=== PATIENT | female | born 1935 | race Caucasian/White ===

== ENCOUNTER 2016-12-16 13:54 | Observation (INO) | payer MEDICARE ==
[~2016-12-16] VITALS: Ht 172.7 cm; Wt 108.8 kg
[~2016-12-16 13:54] MED LIST: AMIT25TA20 PO; ASPI81TA82 PO; B COTAB3 PO; BENEPOW5 OR; CALTTAB5 PO; CITA20TA4 PO; COZA50TA PO; CRAN250C2 OR; GLUCCAP13 PO; LEVO50IN PO; MODU550 PO; OMEP20TA OR; PROP60CA PO; SIMV20TA OR; STOO100T PO; TAB-TAB PO; VIT250TA PO; VITA20003 OR
[2016-12-16 13:56] VITALS: BP 147/72; PULSE 80; RESP 24; TEMP 97.8; O2SAT 94
--- NOTE | 2016-12-16 15:28 | PD ---
HPI Chief Complaint: Psychiatric Symptoms Time Seen by Provider: 14:39 Travel History International Travel<30 days: No Contact w/Intl Traveler<30days: No Traveled to known affect area: No History of Present Illness HPI 81yo F with PMH of HTN, HLD, depression presents to the ED with c/o auditory hallucination that has been getting worst. States the voices are telling her to do things. Pt also states she has been having chest pressure that is intermittent for 1 week. Pain is midsternal. Denies any sob, n/v, abdominal pain, focal weakness or numbness. Pt states she used to see social science professor Dr. Lomax but has not in years and he is now retired. Has not had chest pain work up in a while. Denies any suicidal or homicidal ideations. PFSH Past Medical History Hx Anticoagulant Therapy: Yes (asa) Cancer: No Cardiovascular Problems: Yes Diabetes: No Diminished Hearing: Yes (HEARING AID) Hepatitis: No Hiatal Hernia: No Hypertension: Yes Medical other: Yes (GERD, TREMORS) Thyroid Disease: Yes Tetanus Vaccination: > 5 Years Influenza Vaccination: Yes Past Surgical History Abdominal Surgery: Yes (APPY, LAP. TONEY, EXPL. LAP) Appendectomy: Yes Cholecystectomy: Yes Eye Surgery: Yes (KRISTINA. CATARACT EXTRACT EXTR., KRISTINA. LASER (GLAUCOMA)) Gynecologic Surgery: Yes (VAG. HYSTERECTOMY, TRANSOBTURATOR TAPE, AP REPAIR, BLADDER TUCK) Hysterectomy: Yes Other Surgery: Yes Social History Alcohol Use: Yes (WINE) Tobacco Use: No Substance Use: No Allergies-Medications (Allergen,Severity, Reaction): Coded Allergies: Cephalexin (Unverified Allergy, Severe, RASH, 12/16/16) Keflex (Verified Allergy, Severe, ALSO CEFOTETAN., 12/16/16) Ketamine (Verified Allergy, Severe, 12/16/16) PATIENT HAS NOT HAD--MOTHER HAD HALLUCINATIONS WITH THIS MED Penicillin (Verified Allergy, Severe, 12/16/16) Sulfa (Verified Allergy, Severe, 12/16/16) Uncoded Allergies: cefotetan (Allergy, Unknown, 12/16/16) Reported Meds & Prescriptions Reported Meds & Active Scripts Active Reported Cranberry (Cranberry (Vaccinium Macrocarpon)) 250 Mg Cap Miralax Powder (Polyethylene Glycol 3350 Powder) 17 Gm Powd 17 Gm PO DAILY Mix and dissolve one measuring cap-ful (17 grams) in water or juice. Caltrate 600 (Calcium Carbonate) 1,500 Mg Tab 1 Tab PO DAILY Aspirin 81 (Aspirin) 81 Mg Tabdr 81 Mg PO HS Fish Oil ([place]-3 Fatty Acids) 500 Mg Cap Glucosamine & Cho... 5653-8555-106 mg-mg-Unit (Dnklszflsyn-Akiabbvaaqk-Ugdbtg) 1 Pow Pow 2,700 Mg PO DAILY Vitamin D-3 (Cholecalciferol) 1,000 Unit Tab 1,000 Units PO DAILY Vitamin C (Ascorbic Acid) 500 Mg Cap 500 Mg PO Centrum Silver (Multiple Vitamins W/ Minerals) 1 Tab 1 Tab PO DAILY Amiloride-Hydrochlorothiazide (Amiloride/HCTZ) 5-50 Mg Tab 1 Tab PO DAILY Give with food. Zocor (Simvastatin) 20 Mg Tab 20 Mg PO HS Propranolol (Propranolol HCl) 60 Mg Tab 60 Mg PO DAILY Estradiol 1 Mg Tab 1 Mg PO DAILY Amitriptyline (Amitriptyline HCl) 25 Mg Tab 25 Mg PO HS Levothyroxine (Levothyroxine Sodium) 150 Mcg Tab 150 Mcg PO DAILY Citalopram (Citalopram Hydrobromide) 20 Mg Tab 20 Mg PO DAILY Omeprazole 20 Mg Tab 20 Mg PO DAILY Review of Systems Except as stated in HPI: all other systems reviewed are Neg Physical Exam Narrative GENERAL: 81yo F not in distress. SKIN: Focused skin assessment warm/dry. HEAD: Atraumatic. Normocephalic. EYES: Pupils equal and round. No scleral icterus. No injection or drainage. ENT: No nasal bleeding or discharge. Mucous membranes pink and moist. NECK: Trachea midline. No JVD. CARDIOVASCULAR: Regular rate and rhythm. No murmur appreciated. RESPIRATORY: No accessory muscle use. Clear to auscultation. Breath sounds equal bilaterally. GASTROINTESTINAL: Abdomen soft, non-tender, nondistended. MUSCULOSKELETAL: No obvious deformities. No clubbing. No cyanosis. No edema. NEUROLOGICAL: Awake and alert. No obvious cranial nerve deficits. Motor grossly within normal limits. Normal speech. PSYCHIATRIC: Appropriate mood and affect; insight and judgment normal. Data Data Last Documented VS Vital Signs Date Time Temp Pulse Resp B/P Pulse Ox O2 Delivery O2 Flow Rate FiO2 12/16/16 14:48 76 18 12/16/16 13:56 97.8 147/72 94 Room Air Orders Complete Blood Count With Diff (12/16/16 14:50) Comprehensive Metabolic Panel (12/16/16 14:50) Thyroid Stimulating Hormone (12/16/16 14:50) Psych Screen (12/16/16 14:50) Drug Screen, Random Urine (12/16/16 14:50) Electrocardiogram (12/16/16 ) Ckmb (Isoenzyme) Profile (12/16/16 14:50) Troponin I (12/16/16 14:50) Chest, Single Ap (12/16/16 ) Admit Order (Ed Use Only) (12/16/16 18:16) Free Thyroxine (T4) (12/16/16 15:15) Labs Laboratory Tests Test 12/16/16 12/16/16 15:15 16:50 White Blood Count 9.9 TH/MM3 Red Blood Count 4.03 MIL/MM3 Hemoglobin 13.0 GM/DL Hematocrit 37.8 % Mean Corpuscular Volume 93.9 FL Mean Corpuscular Hemoglobin 32.4 PG Mean Corpuscular Hemoglobin 34.5 % Concent Red Cell Distribution Width 14.0 % Platelet Count 265 TH/MM3 Mean Platelet Volume 7.4 FL Neutrophils (%) (Auto) 67.9 % Lymphocytes (%) (Auto) 20.1 % Monocytes (%) (Auto) 8.9 % Eosinophils (%) (Auto) 2.3 % Basophils (%) (Auto) 0.8 % Neutrophils # (Auto) 6.7 TH/MM3 Lymphocytes # (Auto) 2.0 TH/MM3 Monocytes # (Auto) 0.9 TH/MM3 Eosinophils # (Auto) 0.2 TH/MM3 Basophils # (Auto) 0.1 TH/MM3 CBC Comment DIFF FINAL Differential Comment Sodium Level 137 MEQ/L Potassium Level 3.5 MEQ/L Chloride Level 98 MEQ/L Carbon Dioxide Level 28.8 MEQ/L Anion Gap 10 MEQ/L Blood Urea Nitrogen 14 MG/DL Creatinine 1.02 MG/DL Estimat Glomerular Filtration 52 ML/MIN Rate Random Glucose 91 MG/DL Calcium Level 9.3 MG/DL Total Bilirubin 0.4 MG/DL Aspartate Amino Transf 13 U/L (AST/SGOT) Alanine Aminotransferase 19 U/L (ALT/SGPT) Alkaline Phosphatase 86 U/L Total Creatine Kinase 69 U/L Troponin I LESS THAN 0.02 NG/ML Total Protein 6.4 GM/DL Albumin 3.3 GM/DL Free Thyroxine 1.20 NG/DL Thyroid Stimulating Hormone 5.230 uIU/ML 3rd Gen Urine Opiates Screen NEG Urine Barbiturates Screen NEG Urine Amphetamines Screen NEG Urine Benzodiazepines Screen NEG Urine Cocaine Screen NEG Urine Cannabinoids Screen NEG MDM Medical Decision Making Medical Screen Exam Complete: Yes Emergency Medical Condition: Yes Interpretation(s) EKG: NSR 69bpm. LAD. Incomplete RBBB. Differential Diagnosis Psychosis vs. schizophrenia vs. dementia ACS vs. NSTEMI vs. atypical chest pain vs. anxiety Narrative Course 81yo F with main complaint of auditory hallucinations. However, she does have chest pressure that is intermittent for 1 week. Last episode was last night. Although her main complaint is auditory hallucinations, she does have risk factors for chest pain. Will check enzymes and r/o chest pain as well as have psych evaluate her. Troponin negative. TSH mildly elevated, will add T4. Labs reviewed, no leukocytosis. CXR negative. Pt was found outside the ED as the voices told her to so pt was bustillo acted. Pt was brought back by her nurse and has a sitter in her room. Discussed with hospitalist to admit to their service for observation to r/o ACS for chest pain while waiting for psych evaluation. Diagnosis Primary Impression: Chest pain Qualified Code: R07.9 - Chest pain, unspecified type Additional Impression: Auditory hallucination Admitting Information Admitting Physician Requests: Flower Valerio DO December 16, 2016 15:28
[2016-12-16] MEDS ORDERED: LEVO150T7 PO (15:51)
[2016-12-16] MEDS ORDERED: PROP60TA PO (15:51)
[2016-12-16] MEDS ORDERED: ZOCO20TA PO (15:51)
[2016-12-16] MEDS ORDERED: OMEP20TA PO (15:51)
[2016-12-16] MEDS ORDERED: FISH500C (15:51)
[2016-12-16] MEDS ORDERED: AMIT25TA9 PO (15:51)
[2016-12-16] MEDS ORDERED: ASCO500C PO (15:51)
[2016-12-16] MEDS ORDERED: CITA20TA4 PO (15:51)
[2016-12-16] MEDS ORDERED: ESTR1TAB PO (15:51)
[2016-12-16] MEDS ORDERED: CENTTAB PO (15:51)
[2016-12-16] MEDS ORDERED: ASPI-110 PO (15:51)
[2016-12-16] MEDS ORDERED: GLUCPOW27 PO (15:51)
[2016-12-16] MEDS ORDERED: MODU550 PO (15:51)
[2016-12-16] MEDS ORDERED: VITA10003 PO (15:51)
[2016-12-16] MEDS ORDERED: MIRA33504 PO (15:52)
[2016-12-16] MEDS ORDERED: CRAN250C (15:52)
[2016-12-16] MEDS ORDERED: CALTTAB5 PO (15:52)
--- NOTE | 2016-12-16 15:59 | RADRPT ---
EXAM DATE/TIME: 12/16/2016 15:22 [facility] COMPARISON: No previous studies available for comparison. INDICATIONS : Chest pain. MEDICAL HISTORY : Hypertension. SURGICAL HISTORY : None. ENCOUNTER: Initial ACUITY: 1 day PAIN SCORE: Non-responsive. LOCATION: Bilateral chest FINDINGS: A single view of the chest demonstrates the lungs to be symmetrically aerated without evidence of mas s, infiltrate or effusion. The cardiomediastinal contours are unremarkable. Osseous structures are intact. CONCLUSION: No acute disease. Son Rivera MD on December 16, 2016 at 15:57 Board Certified Radiologist. This report was verified electronically.
[2016-12-16 16:14] LABS: AUTOMATED NEUTROPHIL # 6.7 TH/MM3 (1.8-7.7); BASOPHIL # 0.1 TH/MM3 (0-0.2); BASOPHIL % 0.8 % (0.0-2.0); EOSINOPHIL # 0.2 TH/MM3 (0-0.4); EOSINOPHIL % 2.3 % (0.0-4.0); HEMATOCRIT 37.8 % (35.0-46.0); HEMO FLAGS DIFF FINAL; LYMPH % 20.1 % (9.0-44.0); MEAN CELL VOLUME 93.9 FL (80.0-100.0); MEAN CORPUSCULAR HEMOGLOBIN 32.4 PG (27.0-34.0); MEAN CORPUSCULAR HGB CONC 34.5 % (32.0-36.0); MONO % 8.9 % (0.0-8.0); NEUT % 67.9 % (16.0-70.0); PLATELET COUNT 265 TH/MM3 (150-450); RED BLOOD COUNT 4.03 MIL/MM3 (4.00-5.30); WHITE BLOOD COUNT 9.9 TH/MM3 (4.0-11.0)
[2016-12-16 16:39] LABS: ANION GAP 10 MEQ/L (5-15); AST (GOT) 13 U/L (15-37); BICARBONATE 28.8 MEQ/L (21.0-32.0); BLOOD UREA NITROGEN 14 MG/DL (7-18); CHLORIDE 98 MEQ/L (98-107); GLOMERULAR FILTRATION RATE 52 ML/MIN (>89); POTASSIUM 3.5 MEQ/L (3.5-5.1); SODIUM (NA) 137 MEQ/L (136-145)
[2016-12-16 16:50] LABS: ALKALINE PHOSPHATASE 86 U/L (45-117); ALT (GPT) 19 U/L (10-53); TOTAL BILIRUBIN ADULT 0.4 MG/DL (0.2-1.0)
[2016-12-16 17:27] LABS: AMPHETAMINE, URINE NEG (NEG); BARBITURATES, URINE NEG (NEG); COCAINE, URINE NEG (NEG)
[2016-12-16 17:35] LABS: CREATINE KINASE 69 U/L (26-192)
[2016-12-16 18:38] VITALS: BP 144/75; PULSE 75; RESP 18; O2SAT 98
[2016-12-16] MEDS ORDERED: SODIUM CHLORIDE 0.9% FLUSH 10 ML FLUSH IV FLUSH PRN (19:00)
[2016-12-16] MEDS ORDERED: ACETAMINOPHEN 325 MG TAB PO PRN (19:00)
[2016-12-16] MEDS ORDERED: ONDANSETRON HCL 4 MG/2 ML VIAL IVP PRN (19:00)
[2016-12-16] MEDS ORDERED: NALOXONE HCL 0.4 MG/ML AMP IV PRN (19:00)
--- NOTE | 2016-12-16 19:06 | HHI.HP ---
HPI Service [facility] Primary Care Physician Serina Nance Admission Diagnosis Chest pain, psychosis Diagnoses: Chief Complaint: auditory hallucinations, brought in as noel act chest tightness Travel History International Travel<30 Days: No Contact w/Intl Traveler <30 Da: No Traveled to Known Affected Are: No History of Present Illness This is a pleasant 81-year-old elderly female with past medical history hypertension, hyperlipidemia, depression, TIA, tremors. Patient presented to the emergency room complaining of auditory hallucinations that have been getting worse. Patient was sent from [facility] under [employer] act. While being evaluated in emergency room, patient endorsed having chest heaviness. Patient is now evaluated in the emergency room, she indicates that prior to living at [facility] she was living with one of her daughters. She has been having problems with auditory hallucinations for the last 7 months and has been under a lot of stress. She denies any suicidal ideation at this time. States that she's been having some chest heaviness, she had an episode yesterday after dinner and also after she got up to walk. Chest heaviness was relieved with rest. There is no radiation. She feels slightly short of breath, no nausea, no vomiting, diaphoresis. Occasional leg swelling. Denies any prior history of coronary artery disease. She has seen cardiology in the past, believes that she saw Dr. Crowder as outpatient last fall and had a stress test that was negative. Patient believes this chest heaviness is more pronounced as she's been under a lot of stress and is very anxious. She denies any auditory hallucinations at this time however she is very anxious as she expects them to happen anytime. Laboratory workup completed in the emergency room was essentially unremarkable. Troponin was negative. EKG did not reveal any ST segment elevation. The emergency room physician requested admission to hospitalist services for observation overnight so that she can be medically clear for psychiatric inpatient care. Review of Systems ROS Limitations: Clinical Condition Cardiovascular: COMPLAINS OF: Chest pain, Dyspnea on Exertion, Lower Extremity Edema Psychiatric: COMPLAINS OF: Anxiety, Hallucinations Past Family Social History Past Medical History Hypertension Hyperlipidemia TIA GERD Tremors Anxiety Cataracts Glaucoma Hypothyroid Past Surgical History Appendectomy Vaginal hysterectomy Laparoscopic cholecystectomy Trans-obturator tape placement and rectocele repair and cystoscopy 2005 Trans-obturator tape bladder suspension 2010 Laser eye surgery for glaucoma Laparoscopic surgery for lysis of adhesions Ventral hernia repair EGD Cataract surgery Reported Medications Reported Meds & Active Scripts Active Reported Cranberry (Cranberry (Vaccinium Macrocarpon)) 250 Mg Cap Miralax Powder (Polyethylene Glycol 3350 Powder) 17 Gm Powd 17 Gm PO DAILY Mix and dissolve one measuring cap-ful (17 grams) in water or juice. Caltrate 600 (Calcium Carbonate) 1,500 Mg Tab 1 Tab PO DAILY Aspirin 81 (Aspirin) 81 Mg Tabdr 81 Mg PO HS Fish Oil ([place]-3 Fatty Acids) 500 Mg Cap Glucosamine & Cho... 2560-4639-654 mg-mg-Unit (Ogbchtocjjz-Qhvcnsyhvsa-Sziarq) 1 Pow Pow 2,700 Mg PO DAILY Vitamin D-3 (Cholecalciferol) 1,000 Unit Tab 1,000 Units PO DAILY Vitamin C (Ascorbic Acid) 500 Mg Cap 500 Mg PO Centrum Silver (Multiple Vitamins W/ Minerals) 1 Tab 1 Tab PO DAILY Amiloride-Hydrochlorothiazide (Amiloride/HCTZ) 5-50 Mg Tab 1 Tab PO DAILY Give with food. Zocor (Simvastatin) 20 Mg Tab 20 Mg PO HS Propranolol (Propranolol HCl) 60 Mg Tab 60 Mg PO DAILY Estradiol 1 Mg Tab 1 Mg PO DAILY Amitriptyline (Amitriptyline HCl) 25 Mg Tab 25 Mg PO HS Levothyroxine (Levothyroxine Sodium) 150 Mcg Tab 150 Mcg PO DAILY Citalopram (Citalopram Hydrobromide) 20 Mg Tab 20 Mg PO DAILY Omeprazole 20 Mg Tab 20 Mg PO DAILY Allergies: Coded Allergies: Cephalexin (Unverified Allergy, Severe, RASH, 12/16/16) Keflex (Verified Allergy, Severe, ALSO CEFOTETAN., 12/16/16) Ketamine (Verified Allergy, Severe, 12/16/16) PATIENT HAS NOT HAD--MOTHER HAD HALLUCINATIONS WITH THIS MED Penicillin (Verified Allergy, Severe, 12/16/16) Sulfa (Verified Allergy, Severe, 12/16/16) Uncoded Allergies: cefotetan (Allergy, Unknown, 12/16/16) Active Ordered Medications Inpatient Medications Acetaminophen (Tylenol) 650 mg Q4H PRN PO TEMP > 100.4; Start 12/16/16 at 19:00 ; Status UNV Naloxone HCl (Narcan Inj) 0.4 mg UNSCH PRN IV SEE LABEL COMMENTS; Start at 19:00; Status UNV Ondansetron HCl (Zofran Inj) 4 mg Q6H PRN IVP NAUSEA OR VOMITING; Start at 19:00; Status UNV Sodium Chloride (NS Flush) 2 ml BID IV FLUSH ; Start 12/16/16 at 21:00; Status UNV Family History Had a sister who had coronary artery disease and stent [facility] . She has grown children. She quit smoking in 1983, drinks 1 glass of wine per day. No substance abuse. Physical Exam Vital Signs Vital Signs Date Time Temp Pulse Resp B/P Pulse Ox O2 Delivery O2 Flow Rate FiO2 12/16/16 18:38 75 18 144/75 98 Room Air 12/16/16 14:48 76 18 12/16/16 13:56 97.8 80 24 147/72 94 Room Air Physical Exam GENERAL: This is a well-nourished, well-developed patient, in no apparent distress. SKIN: No rashes, ecchymoses or lesions. Cool and dry. HEAD: Atraumatic. Normocephalic. No temporal or scalp tenderness. EYES: Pupils equal round and reactive. Extraocular motions intact. No scleral icterus. No injection or drainage. ENT: Nose without bleeding, purulent drainage or septal hematoma. Throat without erythema, tonsillar hypertrophy or exudate. Uvula midline. Airway patent. NECK: Trachea midline. No JVD or lymphadenopathy. Supple, nontender, no meningeal signs. CARDIOVASCULAR: Regular rate and rhythm without murmurs, gallops, or rubs. RESPIRATORY: Clear to auscultation. Breath sounds equal bilaterally. No wheezes , rales, or rhonchi. GASTROINTESTINAL: Abdomen soft, non-tender, nondistended. No hepato-splenomegaly , or palpable masses. No guarding. MUSCULOSKELETAL: Extremities without clubbing, cyanosis. Trace ankle edema, pedal pulses 2+ bilaterally. No joint tenderness, effusion, or edema noted. No calf tenderness. Negative Homans sign bilaterally. NEUROLOGICAL: Awake, alert oriented 3. No focal deficits. Noted anxious, has hand tremors. Laboratory Laboratory Tests Test 12/16/16 12/16/16 15:15 16:50 White Blood Count 9.9 Red Blood Count 4.03 Hemoglobin 13.0 Hematocrit 37.8 Mean Corpuscular Volume 93.9 Mean Corpuscular Hemoglobin 32.4 Mean Corpuscular Hemoglobin 34.5 Concent Red Cell Distribution Width 14.0 Platelet Count 265 Mean Platelet Volume 7.4 Neutrophils (%) (Auto) 67.9 Lymphocytes (%) (Auto) 20.1 Monocytes (%) (Auto) 8.9 Eosinophils (%) (Auto) 2.3 Basophils (%) (Auto) 0.8 Neutrophils # (Auto) 6.7 Lymphocytes # (Auto) 2.0 Monocytes # (Auto) 0.9 Eosinophils # (Auto) 0.2 Basophils # (Auto) 0.1 CBC Comment DIFF FINAL Differential Comment Sodium Level 137 Potassium Level 3.5 Chloride Level 98 Carbon Dioxide Level 28.8 Anion Gap 10 Blood Urea Nitrogen 14 Creatinine 1.02 Estimat Glomerular Filtration 52 Rate Random Glucose 91 Calcium Level 9.3 Total Bilirubin 0.4 Aspartate Amino Transf 13 (AST/SGOT) Alanine Aminotransferase 19 (ALT/SGPT) Alkaline Phosphatase 86 Total Creatine Kinase 69 Troponin I LESS THAN 0.02 Total Protein 6.4 Albumin 3.3 Thyroid Stimulating Hormone 5.230 3rd Gen Urine Opiates Screen NEG Urine Barbiturates Screen NEG Urine Amphetamines Screen NEG Urine Benzodiazepines Screen NEG Urine Cocaine Screen NEG Urine Cannabinoids Screen NEG Result Diagram: 12/16/16 1515 12/16/16 1515 Imaging Last Impressions Chest X-Ray 12/16/16 0000 Signed Impressions: Service Date/Time: Friday, December 16, 2016 15:22 - CONCLUSION: No acute disease. Son Rivera MD Assessment and Plan Problem List: (1) Chest pain (2) Psychosis (3) Auditory hallucination (4) Hyperlipidemia (5) Tremor (6) HTN (hypertension) (7) Hypothyroid Assessment and Plan Admit to Dr. Pacheco 81-year-old elderly female with history hypertension, hyperlipidemia TIA. Brought into emergency room under Noel act for auditory hallucinations. Endorses chest heaviness relieved by rest. Denies history of coronary artery disease. Chest pain, rule out acute coronary syndrome Continue with serial cardiac enzymes, if any elevation, we will consult cardiology Continuous cardiac telemetry Aspirin 81 mg by mouth daily now Nitroglycerin half an inch every 6 to chest wall -Lipid profile in the morning Auditory hallucinations, history of Depression. Noted anxious. Patient under Noel act -Consult psychiatry for evaluation Sitter to remain at bedside -Vistaril 25 mg by mouth every 8 when necessary for anxiety. -Resume Elavil, Celexa. Hypothyroid, TSH level V.23 We'll adjust Synthroid Tremors Resume Inderal Hyperlipidemia Continue statins Lipid profile in the morning Hypertension, stable continue home medications Home medications reviewed, initiated as indicated SCDs for DVT prophylaxis Protonix for GI prophylaxis Plan of care has been discussed with the patient, attending and registered nurse. Further management of the patient will be dependent on the hospital course This patient was seen by myself and Dr. Pacheco, this H&P is written on his behalf Problem Qualifiers (1) Chest pain: Qualified Code: R07.9 - Chest pain, unspecified type (2) Psychosis: Qualified Code: F29 - Psychosis, unspecified psychosis type (3) Hyperlipidemia: Qualified Code: E78.5 - Hyperlipidemia, unspecified hyperlipidemia type (4) HTN (hypertension): Qualified Code: I10 - Essential hypertension (5) Hypothyroid: Qualified Code: E03.9 - Hypothyroidism, unspecified type Laura Jean-Baptiste December 16, 2016 19:06
[2016-12-16] MEDS ORDERED: hydrOXYzine PAMOATE 25 MG CAP PO PRN (19:30)
[2016-12-16] MEDS: NITROGLYCERIN 2% OINT 1 GM PACKET TOPICAL SCH (20:30)
[2016-12-16] MEDS: ASPIRIN EC 81 MG TABEC PO SCH (20:30)
[2016-12-16 20:32] VITALS: BP 138/64; PULSE 78; RESP 18; O2SAT 99
[2016-12-16] MEDS ORDERED: PRAVASTATIN SOD 40 MG TAB PO SCH (21:00)
[2016-12-16] MEDS ORDERED: AMITRIPTYLINE HCL 25 MG TAB PO SCH (21:00)
[2016-12-16] MEDS ORDERED: SODIUM CHLORIDE 0.9% FLUSH 10 ML FLUSH IV FLUSH SCH (21:00)
[2016-12-16 22:13] VITALS: BP 132/82; PULSE 72; RESP 18; O2SAT 99
[2016-12-16 23:48] VITALS: BP 146/65; PULSE 64; RESP 18; TEMP 98.5; O2SAT 95
[2016-12-16 23:48] LABS: CREATINE KINASE 96 U/L (26-192)
[2016-12-17] MEDS: NITROGLYCERIN 2% OINT 1 GM PACKET TOPICAL SCH ×2 (01:20→05:33)
[2016-12-17 03:50] LABS: CREATINE KINASE 59 U/L (26-192); HDL CHOLESTEROL 41.2 MG/DL (40.0-60.0); LDL CHOLESTEROL 69 MG/DL (0-99)
[2016-12-17 04:16] VITALS: BP 119/55; PULSE 63; RESP 18; TEMP 98; O2SAT 91
[2016-12-17] MEDS ORDERED: LEVOTHYROXINE SODIUM 150 MCG TAB PO SCH (06:00)
[2016-12-17] MEDS ORDERED: LEVOTHYROXINE SODIUM 125 MCG TAB PO SCH (06:00)
[2016-12-17 07:16] VITALS: BP 123/60; PULSE 60; RESP 18; TEMP 98; O2SAT 95
--- NOTE | 2016-12-17 07:35 | HHI.PR ---
Subjective Subjective Remarks awake, oriented x 2-3 not hearing voices at this time slept well no cp some anxiety no sob sitter at bsd Review of Systems Constitutional Constitutional Remarks 12 point ROS completed, unreliable Vitals/Results Intake & Output 12/16/16 12/16/16 12/17/16 15:00 23:00 07:00 Intake Total 200 ml Balance 200 ml Intake Oral 200 ml Vital Signs Vital Signs Date Time Temp Pulse Resp B/P Pulse Ox O2 Delivery O2 Flow Rate FiO2 12/17/16 07:16 98.0 60 18 123/60 95 12/17/16 04:16 98.0 63 18 119/55 91 12/16/16 23:48 98.5 64 18 146/65 95 12/16/16 22:13 72 18 132/82 99 Nasal Cannula 2 12/16/16 20:32 78 18 138/64 99 Room Air 12/16/16 18:38 75 18 144/75 98 Room Air 12/16/16 14:48 76 18 12/16/16 13:56 97.8 80 24 147/72 94 Room Air CBC/BMP: 12/16/16 1515 12/16/16 1515 Lab Results Laboratory Tests Test 12/16/16 12/16/16 12/16/16 12/17/16 15:15 16:50 23:08 03:05 White Blood Count 9.9 TH/MM3 Red Blood Count 4.03 MIL/MM3 Hemoglobin 13.0 GM/DL Hematocrit 37.8 % Mean Corpuscular Volume 93.9 FL Mean Corpuscular Hemoglobin 32.4 PG Mean Corpuscular Hemoglobin 34.5 % Concent Red Cell Distribution Width 14.0 % Platelet Count 265 TH/MM3 Mean Platelet Volume 7.4 FL Neutrophils (%) (Auto) 67.9 % Lymphocytes (%) (Auto) 20.1 % Monocytes (%) (Auto) 8.9 % Eosinophils (%) (Auto) 2.3 % Basophils (%) (Auto) 0.8 % Neutrophils # (Auto) 6.7 TH/MM3 Lymphocytes # (Auto) 2.0 TH/MM3 Monocytes # (Auto) 0.9 TH/MM3 Eosinophils # (Auto) 0.2 TH/MM3 Basophils # (Auto) 0.1 TH/MM3 CBC Comment DIFF FINAL Differential Comment Sodium Level 137 MEQ/L Potassium Level 3.5 MEQ/L Chloride Level 98 MEQ/L Carbon Dioxide Level 28.8 MEQ/L Anion Gap 10 MEQ/L Blood Urea Nitrogen 14 MG/DL Creatinine 1.02 MG/DL Estimat Glomerular Filtration 52 ML/MIN Rate Random Glucose 91 MG/DL Calcium Level 9.3 MG/DL Total Bilirubin 0.4 MG/DL Aspartate Amino Transf 13 U/L (AST/SGOT) Alanine Aminotransferase 19 U/L (ALT/SGPT) Alkaline Phosphatase 86 U/L Total Creatine Kinase 69 U/L 96 U/L 59 U/L Troponin I LESS THAN 0.02 LESS THAN 0.02 LESS THAN 0.02 NG/ML NG/ML NG/ML Total Protein 6.4 GM/DL Albumin 3.3 GM/DL Free Thyroxine 1.20 NG/DL Thyroid Stimulating Hormone 5.230 uIU/ML 3rd Gen Urine Opiates Screen NEG Urine Barbiturates Screen NEG Urine Amphetamines Screen NEG Urine Benzodiazepines Screen NEG Urine Cocaine Screen NEG Urine Cannabinoids Screen NEG Triglycerides Level 141 MG/DL Cholesterol Level 138 MG/DL LDL Cholesterol 69 MG/DL HDL Cholesterol 41.2 MG/DL Cholesterol/HDL Ratio 3.34 RATIO Physical Exam General General Appearance: Well Developed, Well Nourished, No Acute Distress, Comfortable Eyes Eye Exam: Pupils Equal, Pupils Reactive Ears & Nose Ears & Nose Exam: Nasal Mucosa [place] Throat Throat Exam: Oral Mucosa [place] & Moist Neck Neck Exam: Neck Supple, Trachea Midline Pulmonary Resp Exam: Clear Bilaterally, No Distress Cardiology CV Exam: Regular, Good Perfusion Gastrointestinal/Abdomen GI Exam: Soft, Non-Tender, Bowel Sounds Present, Non-Distended Musculoskeletal MS Exam: Joints Intact Integumentary Skin Exam: Warm, Dry Extremeties Extremities Exam: No Edema, Pedal Pulses Palpable Neurologic Neuro Exam: Alert, Awake, No Focal Deficits Psychiatric Psych Exam: Appropriate Responses VTE Prophylaxis VTE Prophylaxis Device: SCDs Assessment/Plan Problem List: (1) Chest pain (2) Psychosis (3) Auditory hallucination (4) Hyperlipidemia (5) Tremor (6) HTN (hypertension) (7) Hypothyroid Assessment/Plan 81-year-old elderly female with history hypertension, hyperlipidemia TIA. Brought into emergency room under Noel act for auditory hallucinations. Endorses chest heaviness relieved by rest. Denies history of coronary artery disease. Chest pain, rule out acute coronary syndrome serial cardiac enzymes negative Continuous cardiac telemetry Aspirin 81 mg by mouth daily Nitroglycerin half an inch every 6 to chest wall -Lipid profile done, results noted -no cp, no evidence of ACS. Can f/u as OP with Dr. Crowder Auditory hallucinations, history of Depression. Noted anxious. Patient under Noel act -Consult psychiatry for evaluation-pending Sitter to remain at bedside -Vistaril 25 mg by mouth every 8 when necessary for anxiety. -continue Elavil, Celexa. -stable to tx to psych Hypothyroid, TSH level V.23 continue Synthroid Tremors continue Inderal Hyperlipidemia Continue statins Hypertension, stable continue home medications SCDs for DVT prophylaxis Protonix for GI prophylaxis no cp, enzymes negative. Stable to go to psych psych consult pending continue with sitter for now D/W RN D/W Dr. Pacheco D/W pt. This patient was seen by myself and Dr. Pacheco, this note is written on his behalf Problem Qualifiers (1) Chest pain: Qualified Code: R07.9 - Chest pain, unspecified type (2) Psychosis: Qualified Code: F29 - Psychosis, unspecified psychosis type (3) Hyperlipidemia: Qualified Code: E78.5 - Hyperlipidemia, unspecified hyperlipidemia type (4) HTN (hypertension): Qualified Code: I10 - Essential hypertension (5) Hypothyroid: Qualified Code: E03.9 - Hypothyroidism, unspecified type Laura Jean-Baptiste December 17, 2016 07:35
[2016-12-17 08:00] VITALS: PULSE 62
[2016-12-17] MEDS ORDERED: ASPI81TA11 PO (08:41)
--- NOTE | 2016-12-17 08:41 | HHI.DCPOC ---
Discharge Care Plan Diagnosis: (1) Psychosis (2) Auditory hallucination (3) Hyperlipidemia (4) Tremor (5) HTN (hypertension) (6) Hypothyroid (7) Chest pain Your Health Problems Are: Chest Pain Goals to Promote Your Health * To prevent worsening of your condition and complications * To maintain your health at the optimal level Directions to Meet Your Goals Take your medications as prescribed Follow your dietary instruction Follow activity as directed Keep your appointments as scheduled Take your immunizations and boosters as scheduled If your symptoms worsen call your PCP, if no PCP go to Urgent Care Center or Emergency Room Smoking is Dangerous to Your Health. Avoid second hand smoke Call the 24-hour hour crisis hotline for domestic abuse at Laura Jean-Baptiste [facility] December 17, 2016 08:41
[2016-12-17] MEDS ORDERED: aMILoride/HCTZ 5 MG/50 MG TAB PO SCH (09:00)
[2016-12-17] MEDS ORDERED: PROPRANOLOL HCL 20 MG TAB PO SCH (09:00)
[2016-12-17] MEDS ORDERED: PANTOPRAZOLE SOD 20 MG DELAYED RELEASE TAB PO SCH (09:00)
[2016-12-17] MEDS ORDERED: CITALOPRAM HYDROBROMIDE 20 MG TAB PO SCH (09:00)
[2016-12-17] MEDS: ASPIRIN EC 81 MG TABEC PO SCH (09:55)
[2016-12-17 12:11] VITALS: BP 122/59; PULSE 70; RESP 18; TEMP 98.2; O2SAT 95
[2016-12-17] MEDS ORDERED: LORazepam 1 MG TAB PO PRN (12:15)
[2016-12-17] MEDS ORDERED: LORazepam 0.5 MG TAB PO PRN (12:15)
[2016-12-17] MEDS ORDERED: LORazepam 2 MG/ML VIAL IM PRN ×2 (12:15)
[2016-12-17] MEDS ORDERED: MAGNESIUM HYDROXIDE SUSP 30 ML CUP PO PRN (12:15)
[2016-12-17] MEDS ORDERED: ALUMINUM/MAGNESIUM/SIMETH 30 ML CUP PO PRN (12:15)
[2016-12-17] MEDS ORDERED: ACETAMINOPHEN 325 MG TAB PO PRN (12:15)
--- NOTE | 2016-12-17 12:20 | PD.CONS ---
Provisional Diagnosis Admission Date December 16, 2016 at 18:22 [place] I. Unspecified psychosis [place] II. Deferred [place] III. Tremors, TIA, hypertension, hyperlipidemia History of Present Illness Service Psychiatry Consult Requested By Primary Care Physician Serina DICKENS The patient is a 81-year-old occasions woman, domiciled with her daughter, , with psychiatric history of depression, medical history hypertension, hyperlipidemia, depression, TIA, tremors. Patient presented to the emergency room complaining of auditory hallucinations that have been getting worse. Patient was sent from [facility] under Noel act. While being evaluated in emergency room, patient endorsed having chest heaviness. Patient is now evaluated in the emergency room, she indicates that prior to living at [facility] she was living with one of her daughters. She has been having problems with auditory hallucinations for the last 7 months and has been under a lot of stress. She denies any suicidal ideation at this time. States that she's been having some chest heaviness, she had an episode yesterday after dinner and also after she got up to walk. Laboratory workup completed in the emergency room was essentially unremarkable. Troponin was negative. EKG did not reveal any ST segment elevation. The emergency room physician requested admission to hospitalist services for observation overnight so that she can be medically clear for psychiatric inpatient care. All of the son and On cognitive testing she says that she has been feeling very depressed because her son today, she started crying stating that his son just . He stated that she doesn't want to talk, and become very oppositional and resistant no giving any information for the psychiatric assessment at this moment. She was oriented 3 , however she seems to be internally stimulated, very paranoid and guarded.. Hypertension, stable continue home medications SCDs for DVT prophylaxis Protonix for GI prophylaxis no cp, enzymes negative. Stable to go to psych psych consult pending continue with sitter for now Review of Systems ROS Limitations: Uncooperative, Refused Constitutional: DENIES: Diaphoretic episodes, Fatigue, Fever, Weight gain, Weight loss, Chills, Dizziness, Change in appetite, Night Sweats Endocrine: DENIES: Abnorml menstrual pattern, Heat/cold intolerance, Polydipsia , Polyuria, Polyphagia Eyes: DENIES: Blurred vision, Diplopia, Eye inflammation, Eye pain, Vision loss , Photosensitivity, Double Vision Ears, nose, mouth, throat: DENIES: Tinnitus, Hearing loss, Vertigo, Nasal discharge, Oral lesions, Throat pain, Hoarseness, Ear Pain, Running Nose, Epistaxis, Sinus Pain, Toothache, Odynophagia Respiratory: DENIES: Apneas, Cough, Snoring, Wheezing, Hemoptysis, Sputum production, Shortness of breath Cardiovascular: DENIES: Chest pain, Palpitations, Syncope, Dyspnea on Exertion , PND, Lower Extremity Edema, Orthopnea, Claudication Gastrointestinal: DENIES: Abdominal pain, Black stools, Bloody stools, Constipation, Diarrhea, Nausea, Vomiting, Difficulty Swallowing, Anorexia Genitourinary: DENIES: Abnormal vaginal bleeding, Dysmenorrhea, Dyspareunia, Sexual dysfunction, Urinary frequency, Urinary incontinence, Urgency, Hematuria , Dysuria, Nocturia, Vaginal discharge Musculoskeletal: DENIES: Joint pain, Muscle aches, Stiffness, Joint Swelling, Back pain, Neck pain Integumentary: DENIES: Abnormal pigmentation, Pruritus, Rash, Nail changes, Breast masses, Breast skin changes, Nipple discharge Hematologic/lymphatic: DENIES: Bruising, Lymphadenopathy Immunologic/allergic: DENIES: Eczema, Urticaria Neurologic: DENIES: Abnormal gait, Headache, Localized weakness, Paresthesias, Seizures, Speech Problems, Tremor, Poor Balance Psychiatric: DENIES: Anxiety, Confusion, Mood changes, Depression, Hallucinations, Agitation, Suicidal Ideation, Homicidal Ideation, Delusions Past Family Social History Coded Allergies: Cephalexin (Unverified Allergy, Severe, RASH, 12/16/16) Keflex (Verified Allergy, Severe, ALSO CEFOTETAN., 12/16/16) Ketamine (Verified Allergy, Severe, 12/16/16) PATIENT HAS NOT HAD--MOTHER HAD HALLUCINATIONS WITH THIS MED Penicillin (Verified Allergy, Severe, 12/16/16) Sulfa (Verified Allergy, Severe, 12/16/16) Uncoded Allergies: cefotetan (Allergy, Unknown, 12/16/16) Reported Medications Cranberry (Vaccinium Macrocarpon) (Cranberry)250 Mg Cap 12/16/16 Polyethylene Glycol 3350 Powder (Miralax Powder)17 Gm Powd17 Gm PO DAILY #1 BOTTLE Ref 0 Mix and dissolve one measuring cap-ful (17 grams) in water or juice. 12/16/16 Calcium Carbonate (Caltrate 600)1,500 Mg Tab1 Tab PO DAILY Ref 0 12/16/[address] (Aspirin 81)81 Mg Tabdr81 Mg PO HS Ref 0 12/16/16 [place]-3 Fatty Acids (Fish Oil)500 Mg Cap 12/16/16 Puzueejdepy-Yywvsxtyjyr-Oafjtk (Glucosamine & Cho... 7309-9665-296 mg-mg-Unit)1 Pow Pow2,700 Mg PO DAILY 12/16/16 Cholecalciferol (Vitamin D-3)1,000 Unit Tab1,000 Units PO DAILY #30 TAB Ref 0 12/16/16 Ascorbic Acid (Vitamin C)500 Mg Swr199 Mg PO Ref 0 12/16/16 Multiple Vitamins W/ Minerals (Centrum Silver)1 Tab1 Tab PO DAILY Ref 0 12/16/16 Amiloride-Hydrochlorothiazide 5-50 Mg Tab1 Tab PO DAILY #30 TAB Ref 0 Give with food. 12/16/16 Simvastatin (Zocor)20 Mg Tab20 Mg PO HS #30 TAB Ref 0 12/16/16 Propranolol 60 Mg Tab60 Mg PO DAILY #60 TAB Ref 0 12/16/16 Estradiol 1 Mg Tab1 Mg PO DAILY #30 TAB Ref 0 12/16/16 Amitriptyline 25 Mg Tab25 Mg PO HS 12/16/16 Levothyroxine 150 Mcg Gwl347 Mcg PO DAILY #30 TAB Ref 0 12/16/16 Citalopram 20 Mg Tab20 Mg PO DAILY #30 TAB Ref 0 12/16/16 Omeprazole 20 Mg Tab20 Mg PO DAILY #30 TAB Ref 0 12/16/16 Current Medications Medications (Trade) Dose Ordered Sig/Bob Route Start Time Stop Time Status Last Admin (NS Flush) 2 ml UNSCH PRN IV FLUSH 12/16/16 19:00 (NS Flush) 2 ml BID IV FLUSH 12/16/16 21:00 (Tylenol) 650 mg Q4H PRN PO 12/16/16 19:00 (Zofran Inj) 4 mg Q6H PRN IVP 12/16/16 19:00 (Narcan Inj) 0.4 mg UNSCH PRN IV 12/16/16 19:00 (Ecotrin Ec) 81 mg DAILY PO 12/16/16 19:00 12/17/16 09:55 (Moduretic 5-50 Mg) 1 tab DAILY PO 12/17/16 09:00 12/17/16 09:52 (Elavil) 25 mg HS PO 12/16/16 21:00 12/16/16 22:06 (CeleXA) 20 mg DAILY PO 12/17/16 09:00 12/17/16 09:54 (Protonix) 20 mg DAILY PO 12/17/16 09:00 12/17/16 09:54 (Inderal) 60 mg DAILY PO 12/17/16 09:00 (Pravachol) 40 mg HS PO 12/16/16 21:00 12/16/16 22:06 (Vistaril) 25 mg Q8H PRN PO 12/16/16 19:30 (Synthroid) 125 mcg DAILY@06 PO 12/17/16 06:00 12/17/16 05:32 (Pneumovax-23 Inj) 25 mcg ONCE ONCE IM 12/18/16 10:00 12/18/16 10:01 (Mag-Al Plus Susp Liq) 30 ml Q6H PRN PO 12/17/16 12:15 UNV Social History Unknown Patient's Strengths (min. 2) Unknown Physical Exam Vital Signs Vital Signs Date Time Temp Pulse Resp B/P Pulse Ox O2 Delivery O2 Flow Rate FiO2 12/17/16 07:16 98.0 60 18 123/60 95 12/16/16 22:13 Nasal Cannula 2 Mental Status Examination Appearance woman, age appearing, [facility], good hygiene, oppositional, poorly cooperative Speech: Hesitant, Slow Orientation: x3 Memory: Unremarkable Thought Process: Goal Directed, Thought Blocking Thought Content: Unremarkable Attention and Concentration: Abnormal Suicidal Ideation: No Previous Suicide Attempts: No Homicidal Ideation: No Previous Homicide Attempts: No Judgment: Poor Affect: Irritable, Sad Mood: Sad Motor Activity: Normal gait Assessment & Plan Problem List: (1) Psychosis Assessment & Plan: On psychiatric evaluation patient is resistant, oppositional , she provides some minimal information about her depression and auditory hallucinations. She seems to be very paranoid and internally stimulated. Collateral information was not available at this moment. Due to her depression and the level of psychosis patient can potentially be a danger to self and needs psychiatric admission for stabilization. Will continue current psychotropics, Lexapro 20 mg and amitriptyline 25 mg, Will add Seroquel 25 mg twice a day for mood stabilization and psychosis.. Patient will be transferred to psychiatric [place] once medically clear. Continue one-to-one in the ER. ICD Code: F29 Assessment & Plan Estimated LOS: days Problem Qualifiers (1) Psychosis: Qualified Code: F29 - Psychosis, unspecified psychosis type Alejandro Montoya MD December 17, 2016 12:20
[2016-12-17 14:22] VITALS: BP 126/63; PULSE 65; RESP 18; TEMP 97.3; O2SAT 96
--- NOTE | 2016-12-17 16:48 | EKG ---
Date Performed: 12/17/2016 Time Performed: 02:59:06 PTAGE: 81 years EKG: Sinus rhythm BORDERLINE LEFT AXIS DEVIATION, consistent with pulmonary disease INCOMPLETE RIGHT BUNDLE BRANCH BLO CK MODERATE VOLTAGE CRITERIA FOR LVH, CONSIDER NORMAL VARIANT Nonspecific ST-T wave changes Compared to prior tracing no significant change ABNORMAL ECG PREVIOUS TRACING : 12/16/2016 15.02 DOCTOR: Katalina Fish Interpretating Date/Time 12/17/2016 16:44:52
--- NOTE | 2016-12-17 16:48 | EKG ---
Date Performed: 12/16/2016 Time Performed: 15:02:57 PTAGE: 81 years EKG: Sinus rhythm BORDERLINE LEFT AXIS DEVIATION LOW QRS VOLTAGE IN PRECORDIAL LEADS PATTERN CONSISTENT WITH PULMONARY DISEASE INCOMPLETE RIGHT BUNDLE BRANCH BLOCK VOLTAGE CRITERIA FOR LVH Compared to previous tracing, the patient is no longer bradycardic ABNORMAL ECG PREVIOUS TRACING : 12/21/2010 11.47 DOCTOR: Katalina Fish Interpretating Date/Time 12/17/2016 16:44:17
[2016-12-18] MEDS ORDERED: QUEtiapine FUMARATE 25 MG TAB PO SCH (09:00)
[2016-12-18] MEDS ORDERED: PNEUMOCOCCAL POLYVALENT INJ 25 MCG/0.5 ML SYR IM ONE (10:00)
== END 2016-12-17 13:59 ==
LOC: NEPE 13:54 → NEDA 18:22 → NEDH 22:49 → NEPGCP 23:37
PROVIDERS: ADMIT Specialist; ATTEND Specialist
DX: R07.89 Other chest pain (principal); F29 Unspecified psychosis not due to a substance or known physiological condition; I10 Essential (primary) hypertension; R44.0 Auditory hallucinations; E78.5 Hyperlipidemia, unspecified; F32.9 Major depressive disorder, single episode, unspecified; R25.1 Tremor, unspecified; E03.9 Hypothyroidism, unspecified; F41.9 Anxiety disorder, unspecified; K21.9 Gastro-esophageal reflux disease without esophagitis; Z79.82 Long term (current) use of aspirin; Z88.1 Allergy status to other antibiotic agents; Z88.0 Allergy status to penicillin; Z88.8 Allergy status to other drugs, medicaments and biological substances; Z82.49 Family history of ischemic heart disease and other diseases of the circulatory system; Z87.891 Personal history of nicotine dependence; Z86.73 Personal history of transient ischemic attack (TIA), and cerebral infarction without residual deficits; Z88.2 Allergy status to sulfonamides
CPT/HCPCS: 71010; 80053; 80061; 80307; 82550; 84439; 84443; 84484; 85025; 93005; 99285; G0378

== ENCOUNTER 2016-12-17 14:18 | Inpatient (IN) | payer MEDICARE ==
[~2016-12-17] VITALS: Ht 172.7 cm; Wt 103.7 kg
[~2016-12-17 14:18] MED LIST changes: -AMIT25TA20 PO; +AMIT25TA9 PO; +ASCO500C PO; +ASPI-110 PO; +ASPI81TA11 PO; -ASPI81TA82 PO; -B COTAB3 PO; -BENEPOW5 OR; +CENTTAB PO; -COZA50TA PO; +CRAN250C; -CRAN250C2 OR; +ESTR1TAB PO; +FISH500C; -GLUCCAP13 PO; +GLUCPOW27 PO; +LEVO150T7 PO; -LEVO50IN PO; +MIRA33504 PO; -OMEP20TA OR; +OMEP20TA PO; -PROP60CA PO; +PROP60TA PO; -SIMV20TA OR; -STOO100T PO; -TAB-TAB PO; -VIT250TA PO; +VITA10003 PO; -VITA20003 OR; +ZOCO20TA PO
[2016-12-17] MEDS ORDERED: LORazepam 2 MG/ML VIAL IM PRN ×2 (15:00)
[2016-12-17] MEDS ORDERED: MAGNESIUM HYDROXIDE SUSP 30 ML CUP PO PRN (15:00)
[2016-12-17] MEDS ORDERED: LORazepam 1 MG TAB PO PRN (15:00)
[2016-12-17] MEDS ORDERED: ACETAMINOPHEN 325 MG TAB PO PRN (15:00)
[2016-12-17] MEDS: QUEtiapine FUMARATE 25 MG TAB PO SCH ×2 (15:00→21:43)
[2016-12-17] MEDS ORDERED: ALUMINUM/MAGNESIUM/SIMETH 30 ML CUP PO PRN (15:00)
[2016-12-17 16:20] VITALS: BP 126/63; PULSE 65; RESP 18; TEMP 97.3; O2SAT 96
[2016-12-17 20:00] VITALS: BP 107/58; PULSE 66; RESP 18; TEMP 97.1; O2SAT 95
[2016-12-18 06:36] VITALS: BP 168/58; PULSE 65; RESP 18; TEMP 97.7; O2SAT 97
[2016-12-18] MEDS: QUEtiapine FUMARATE 25 MG TAB PO SCH ×2 (08:59→21:50)
[2016-12-18] MEDS ORDERED: ALUMINUM/MAGNESIUM/SIMETH 30 ML CUP PO PRN (10:00)
[2016-12-18] MEDS ORDERED: MAGNESIUM HYDROXIDE SUSP 30 ML CUP PO PRN (10:00)
[2016-12-18] MEDS ORDERED: hydrOXYzine HCL 50 MG TAB PO PRN (10:00)
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
--- NOTE | 2016-12-18 13:10 | MB ---
cc: NATASHA STAHL M.D. DATE OF CONSULTATION: 12/18/2016 HISTORY OF PRESENT ILLNESS She is an 81-year-old woman seen in neurological consultation with history of auditory hallucinations. She was admitted under a Noel Act, to the psychiatric unit. She has been over at the assisted living facility [facility]. The patient is telling me that she was brought to the wrong hospital and she is in a hospital for her left hand palsy and seems to describe some tremoring. She was told to have some evaluation for dementia. She describes that she was under tremendous amount of stress earlier this year when moving, etc. She is telling me that her son recently and this is not real. She has a history of what she described as TIA but she is unable to give me more details about it. 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 MEDICATIONS Home medications include: 1. Citalopram. 2. Omeprazole. 3. Amitriptyline. 4. Thyroid replacement. 5. Zocor. 6. Propranolol. 7. Amlodipine. 8. She also takes a baby aspirin daily. NEUROLOGIC EXAM On exam she was alert, pleasant, cooperative and actually she was oriented, knows the place and knew the date. She is delusional about her son's and reportedly she had stated before that she had been hearing some information about her son being . She is walking with a walker and she walks slowly. She does have left hand tremoring which is intermittently moderately severe and the tremor has some Parkinsonism component on it but there is no rigidity. Her reflexes were trace responses and plantar response is probably flexor. Ocular movements and visual cardozo full. 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 The tremor has some Parkinsonian features. It appears that she has not been on any antipsychotics. I am going to order an MRI brain with and without contrast. I saw her recent labs and her GFR was 52 with the creatinine being slightly elevated to 1.02. TSH is elevated to 5.23 and T4 is normal. I will also check B12 level on her. I will follow the neurological course. Thank you for asking us to assist in her care. MD JONATHAN Gordon/SADE /12:47 PM /12:57 PM
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
[2016-12-18 17:00] VITALS: BP 139/74; PULSE 84; RESP 18; TEMP 97.4
[2016-12-18] MEDS ORDERED: GADODIAMIDE PF 287 MG/ML 5 ML VIAL (for RAD MRI) IV ONE (17:16)
--- NOTE | 2016-12-18 17:44 | RADRPT ---
EXAM DATE/TIME: 12/18/2016 16:45 [place] COMPARISON: No previous studies available for comparison. EXTERNAL COMPARISON : [facility], August 2016 INDICATIONS : Evaluate for posterior fossa tumor CONTRAST: 20 cc Omniscan (gadodiamide) IV MEDICAL HISTORY : Hypertension. Hypercholesterolemia. Hyperthyroidism. GERD, TIA SURGICAL HISTORY : Appendectomy. Cholecystectomy. Hysterectomy. Bilateral cataract, Bladder tuck ENCOUNTER: Initial ACUITY: 1 day PAIN SCORE: 1/10 LOCATION: Bilateral cranial TECHNIQUE: Multiplanar, multisequence MRI of the brain was performed both prior to and following the administrat ion of paramagnetic contrast. FINDINGS: CEREBRUM: The ventricles are normal for age. No evidence of midline shift, mass lesion, hemorrhage or acute in farction. No extraaxial fluid collections are seen. The pituitary gland and suprasellar cistern are normal in configuration. WHITE MATTER: There is patchy periventricular white matter T2 prolongation which is nonspecific. POSTERIOR FOSSA: The cerebellum and brainstem are intact. The 4th ventricle is midline. The cerebellopontine angle is unremarkable. The cerebellar tonsils are normal in position. DIFFUSION IMAGING: No focal areas of restricted diffusion are seen. No evidence of acute infarction. EXTRACRANIAL: There is mucosal disease in left sphenoid and maxillary sinuses with layering fluid also present in t he left maxillary sinus. POST-CONTRAST: No abnormal areas of parenchymal or dural enhancement. No evidence of blood-brain barrier breakdown. CONCLUSION: Patchy white matter disease. Sinus disease. No mass or other acute abnormality in the posterior fossa as questioned. Son Barrios MD on December 18, 2016 at 17:40 Board Certified Radiologist. This report was verified electronically.
--- NOTE | 2016-12-18 18:15 | PD.CONS ---
HPI Service [facility] Consult Requested By Dr. Muniz Reason for Consult Medical management Primary Care Physician Serina Nance Diagnoses: History of Present Illness This is a pleasant 81-year-old elderly female with past medical history hypertension, hyperlipidemia, depression, TIA, tremors. Patient presented to the emergency room complaining of auditory hallucinations that have been getting worse. Patient was sent from [facility] under [employer] act. During evaluation in emergency room, patient complain of chest pressure. Patient initially admitted to [facility] to rule out acute coronary syndrome. Patient was admitted to our hospitalist services and was ruled out. She was put on aspirin. She remained stable, chest pain-free. She was evaluated by psychiatry and recommendations were made for continued inpatient psychiatric. Patient is now admitted to psychiatry, she is also been evaluated by neurology for for evaluation of memory issues and new onset of auditory hallucinations. Hospitalist services are now requested for assistance with medical management. A brain MRI has been done, no acute findings are noted. Workup is underway per neurology. Patient is evaluated in the dining room, she is pleasant and cooperative. She is alert and oriented 2-3. She is following commands. She denies any auditory hallucinations. She denies any chest pain, no shortness of breath. Review of Systems ROS Limitations: Altered Mental Status, Poor Historian Past Family Social History Past Medical History Hypertension Hyperlipidemia TIA GERD Tremors Anxiety Cataracts Glaucoma Hypothyroid Past Surgical History Appendectomy Vaginal hysterectomy Laparoscopic cholecystectomy Trans-obturator tape placement and rectocele repair and cystoscopy 2005 Trans-obturator tape bladder suspension 2010 Laser eye surgery for glaucoma Laparoscopic surgery for lysis of adhesions Ventral hernia repair EGD Cataract surgery Reported Medications Reported Meds & Active Scripts Active Aspirin EC (Aspirin) 81 Mg Tabdr 81 Mg PO DAILY Reported Cranberry (Cranberry (Vaccinium Macrocarpon)) 250 Mg Cap Miralax Powder (Polyethylene Glycol 3350 Powder) 17 Gm Powd 17 Gm PO DAILY Mix and dissolve one measuring cap-ful (17 grams) in water or juice. Caltrate 600 (Calcium Carbonate) 1,500 Mg Tab 1 Tab PO DAILY Aspirin 81 (Aspirin) 81 Mg Tabdr 81 Mg PO HS Fish Oil ([place]-3 Fatty Acids) 500 Mg Cap Glucosamine & Cho... [id number] mg-mg-Unit (Qjiapkhfnjw-Tbvvexnllgy-Bvdbfx) 1 Pow Pow 2,700 Mg PO DAILY Vitamin D-3 (Cholecalciferol) 1,000 Unit Tab 1,000 Units PO DAILY Vitamin C (Ascorbic Acid) 500 Mg Cap 500 Mg PO Centrum Silver (Multiple Vitamins W/ Minerals) 1 Tab 1 Tab PO DAILY Amiloride-Hydrochlorothiazide (Amiloride/HCTZ) 5-50 Mg Tab 1 Tab PO DAILY Give with food. Zocor (Simvastatin) 20 Mg Tab 20 Mg PO HS Propranolol (Propranolol HCl) 60 Mg Tab 60 Mg PO DAILY Estradiol 1 Mg Tab 1 Mg PO DAILY Amitriptyline (Amitriptyline HCl) 25 Mg Tab 25 Mg PO HS Levothyroxine (Levothyroxine Sodium) 150 Mcg Tab 150 Mcg PO DAILY Citalopram (Citalopram Hydrobromide) 20 Mg Tab 20 Mg PO DAILY Omeprazole 20 Mg Tab 20 Mg PO DAILY Allergies: Coded Allergies: Cephalexin (Unverified Allergy, Severe, RASH, 12/16/16) Keflex (Verified Allergy, Severe, ALSO CEFOTETAN., 12/16/16) Ketamine (Verified Allergy, Severe, 12/16/16) PATIENT HAS NOT HAD--MOTHER HAD HALLUCINATIONS WITH THIS MED Penicillin (Verified Allergy, Severe, 12/16/16) Sulfa (Verified Allergy, Severe, 12/16/16) Uncoded Allergies: cefotetan (Allergy, Unknown, 12/16/16) Active Ordered Medications Inpatient Medications Acetaminophen (Tylenol) 650 mg Q4H PRN PO Pain 1-5 or Temp >101F; Start at 10:00 Al Hydrox/Mg Hydrox/Simethicone (Mag-Al Plus Susp Liq) 30 ml Q6H PRN PO DYSPEPSIA; Start 12/18/16 at 10:00 Amiloride/HCTZ (Moduretic 5-50 Mg) 1 tab DAILY PO ; Start 12/19/16 at 09:00 Amitriptyline HCl (Elavil) 25 mg HS PO ; Start 12/18/16 at 21:00 Aspirin (Ecotrin Ec) 81 mg HS PO ; Start 12/18/16 at 21:00 Calcium Carbonate (Oscal) 500 mg DAILY PO ; Start 12/19/16 at 09:00 Citalopram Hydrobromide (CeleXA) 20 mg DAILY PO ; Start 12/19/16 at 09:00 Diphenhydramine HCl (Benadryl) 50 mg HS PRN PO INSOMNIA; Start 12/18/16 at 10: 00 Estradiol (Estradiol) 1 mg DAILY PO ; Start 12/19/16 at 09:00 Hydroxyzine HCl (Atarax) 50 mg Q6H PRN PO ANXIETY; Start 12/18/16 at 10:00 Levothyroxine Sodium (Synthroid) 150 mcg DAILY@06 PO ; Start 12/19/16 at 06:00 Lorazepam (Ativan Inj) 0.5 mg Q12H PRN IM MODERATE TO SEVERE ANXIETY; Start at 15:00 Lorazepam (Ativan) 0.5 mg Q12H PRN PO MODERATE TO SEVERE ANXIETY; Start at 15:00 Magnesium Hydroxide (Milk Of Magnberenice Liq) 30 ml DAILY PRN PO CONSTIPATION; Start 12/18/16 at 10:00 Multivitamins/ Minerals Therapeutic (Theragran M Tab) 1 tab DAILY PO ; Start at 09:00 Pantoprazole Sodium (Protonix) 20 mg DAILY PO ; Start 12/19/16 at 09:00 Polyethylene Glycol (Miralax) 17 gm DAILY PO ; Start 12/19/16 at 09:00 Pravastatin Sodium (Pravachol) 40 mg HS PO ; Start 12/18/16 at 21:00 Propranolol HCl (Inderal) 60 mg DAILY PO ; Start 12/19/16 at 09:00 Quetiapine Fumarate (SEROquel) 25 mg BID PO ; Start 12/18/16 at 21:00 Family History Had a sister who had coronary artery disease and stent Social History Patient resides at [facility], she is a . She has grown children. She quit smoking in 1983, drinks 1 glass of wine per day. No substance abuse. Physical Exam Vital Signs Vital Signs Date Time Temp Pulse Resp B/P Pulse Ox O2 Delivery O2 Flow Rate FiO2 12/18/16 17:00 97.4 84 18 139/74 12/18/16 06:36 97.7 65 18 168/58 97 12/17/16 20:00 97.1 66 18 107/58 95 Physical Exam GENERAL: This is a well-nourished, well-developed patient, in no apparent distress. SKIN: No rashes, ecchymoses or lesions. Cool and dry. HEAD: Atraumatic. Normocephalic. No temporal or scalp tenderness. EYES: Pupils equal round and reactive. Extraocular motions intact. No scleral icterus. No injection or drainage. ENT: Nose without bleeding, purulent drainage or septal hematoma. Throat without erythema, tonsillar hypertrophy or exudate. Uvula midline. Airway patent. NECK: Trachea midline. No JVD or lymphadenopathy. Supple, nontender, no meningeal signs. CARDIOVASCULAR: Regular rate and rhythm without murmurs, gallops, or rubs. RESPIRATORY: Clear to auscultation. Breath sounds equal bilaterally. No wheezes , rales, or rhonchi. GASTROINTESTINAL: Abdomen soft, non-tender, nondistended. No hepato-splenomegaly , or palpable masses. No guarding. MUSCULOSKELETAL: Extremities without clubbing, cyanosis. Trace ankle edema, pedal pulses 2+ bilaterally. No joint tenderness, effusion, or edema noted. No calf tenderness. Negative Homans sign bilaterally. NEUROLOGICAL: Awake, alert oriented 3. No focal deficits. Noted anxious, has hand tremors A/P Diagnosis: (1) Auditory hallucination (2) Hyperlipidemia (3) Tremor (4) HTN (hypertension) (5) Hypothyroid (6) Psychotic disorder (7) Hx TIA/stroke w/o resid Assessment and Plan Thank you for this consultation, we will assist with medical management. 81-year-old elderly female with history hypertension, hyperlipidemia TIA. Brought into emergency room under [employer] act for auditory hallucinations. Patient now admitted to psychiatric unit. Auditory hallucinations, psychosis -Continue with psychiatric care -Patient also been followed by neurology, for possible memory deficit and auditory hallucinations. Brain MRI has been done which does not show acute findings. -Continue with Celexa, amitriptyline, Seroquel Recent episode of chest pain, ruled out for acute coronary syndrome. Patient remains chest pain-free Continue with aspirin 81 mg by mouth daily History of TIA Continue with aspirin Hypothyroid -Continue with home medication Tremors Continue Inderal Hyperlipidemia Continue statins Hypertension, stable continue home medications Home medications reviewed, already initiated Plan of care has been discussed with the patient, attending and registered nurse. Further management of the patient will be dependent on the hospital course Patient is stable, chest pain-free. We will follow when necessary. Please call if any issues arise. This patient was seen by myself and Dr. Lambert, this consultation is written on her behalf Problem Qualifiers (1) Hyperlipidemia: Qualified Code: E78.5 - Hyperlipidemia, unspecified hyperlipidemia type (2) HTN (hypertension): Qualified Code: I10 - Essential hypertension (3) Hypothyroid: Qualified Code: E03.9 - Hypothyroidism, unspecified type (4) Psychotic disorder: Qualified Code: F29 - Psychosis, unspecified psychosis type Laura Jean-Baptiste December 18, 2016 18:15
[2016-12-18 18:21] LABS: BACTERIA, URINE MANY /hpf; BLOOD, URINE TRACE (NEG); COMMENT (UR) CULTURE INDICATED; CULTURE IF INDICATED CULTURE INDICATED; GLUCOSE,URINE NEG (NEG); HYALINE CAST, URINE 2 /lpf (RARE); KETONE, URINE NEG (NEG); PH, URINE 6.5 (5.0-8.5); SQUAMOUS EPITHELIAL CELL URINE 3 /hpf (0-5); URINE COLOR YELLOW (YELLW/STRAW)
[2016-12-18 18:22] LABS: NITRITE,URINE POS (NEG)
[2016-12-18] MEDS: ASPIRIN EC 81 MG TABEC PO SCH (21:50)
[2016-12-18] MEDS: AMITRIPTYLINE HCL 25 MG TAB PO SCH (21:50)
[2016-12-18] MEDS: PRAVASTATIN SOD 40 MG TAB PO SCH (21:50)
[2016-12-19] MEDS: LEVOTHYROXINE SODIUM 150 MCG TAB PO SCH (05:51)
[2016-12-19 06:00] VITALS: RESP 18; TEMP 98.2; O2SAT 98
--- NOTE | 2016-12-19 07:52 | HHI.PR ---
Review/Management Daily Summary 12/19 The mri was reviwed and no evidence of tumor behind the ear as patient claims continue psych and medical care outpt neuro follow up after discharge Subjective Subjective Comments Active Medications Current Medications Medications (Trade) Dose Ordered Sig/Bob Route Start Time Stop Time Status Last Admin (Ativan) 0.5 mg Q12H PRN PO 12/17/16 15:00 (Ativan Inj) 0.5 mg Q12H PRN IM 12/17/16 15:00 (Benadryl) 50 mg HS PRN PO 12/18/16 10:00 (Tylenol) 650 mg Q4H PRN PO 12/18/16 10:00 (Milk Of Magnesia Liq) 30 ml DAILY PRN PO 12/18/16 10:00 (Mag-Al Plus Susp Liq) 30 ml Q6H PRN PO 12/18/16 10:00 (Atarax) 50 mg Q6H PRN PO 12/18/16 10:00 (Moduretic 5-50 Mg) 1 tab DAILY PO 12/19/16 09:00 (Elavil) 25 mg HS PO 12/18/16 21:00 12/18/16 21:50 (CeleXA) 20 mg DAILY PO 12/19/16 09:00 (Estradiol) 1 mg DAILY PO 12/19/16 09:00 (Synthroid) 150 mcg DAILY@06 PO 12/19/16 06:00 12/19/16 05:51 (Miralax) 17 gm DAILY PO 12/19/16 09:00 (Ecotrin Ec) 81 mg HS PO 12/18/16 21:00 12/18/16 21:50 (Oscal) 500 mg DAILY PO 12/19/16 09:00 (Theragran M Tab) 1 tab DAILY PO 12/19/16 09:00 (Protonix) 20 mg DAILY PO 12/19/16 09:00 (Inderal) 60 mg DAILY PO 12/19/16 09:00 (Pravachol) 40 mg HS PO 12/18/16 21:00 12/18/16 21:50 (SEROquel) 25 mg BID PO 12/18/16 21:00 12/18/16 21:50 Allergies Allergies Coded Allergies Cephalexin (Unverified Allergy, Severe, RASH, 12/16/16) Keflex (Verified Allergy, Severe, ALSO CEFOTETAN., 12/16/16) Ketamine (Verified Allergy, Severe, 12/16/16) Penicillin (Verified Allergy, Severe, 12/16/16) Sulfa (Verified Allergy, Severe, 12/16/16) Uncoded Allergies cefotetan ( Allergy, Unknown, 12/16/16) Exam I&O / VS 12/18/16 12/18/16 12/19/16 15:00 23:00 07:00 Intake Total 2760 ml 0 ml Balance 2760 ml 0 ml Intake Oral 2760 ml 0 ml # Voids 1 3 Vital Signs Date Time Temp Pulse Resp B/P Pulse Ox O2 Delivery O2 Flow Rate FiO2 12/19/16 06:00 98.2 18 98 12/18/16 17:00 97.4 84 18 139/74 Objective Radiology Results Last 48 hours Impressions Brain MRI 12/18/16 0000 Signed Impressions: Service Date/Time: Sunday, December 18, 2016 16:45 - CONCLUSION: Patchy white matter disease. Sinus disease. No mass or other acute abnormality in the posterior fossa as questioned. Son Barrios MD Micro and Labs Laboratory Tests Test 12/18/16 12/18/16 13:30 20:32 Urine Color YELLOW Urine Turbidity HAZY Urine pH 6.5 Urine Specific [place] 1.014 Urine Protein TRACE Urine Glucose (UA) NEG Urine Ketones NEG Urine Occult Blood TRACE Urine Nitrite POS Urine Bilirubin NEG Urine Urobilinogen LESS THAN 2.0 Urine Leukocyte Esterase LARGE Urine RBC 2 Urine WBC Urine Squamous Epithelial 3 Cells Urine Bacteria MANY Urine Hyaline Casts 2 Microscopic Urinalysis Comment CULTURE INDICATED Vitamin B12 Level 582 Date/Time Procedure Status Source Growth 12/18/16 13:30 Urine Culture Received Urine Clean Catch Pending Tom Cortez MD December 19, 2016 07:52
[2016-12-19 08:03] LABS: AUTOMATED NEUTROPHIL # 5.4 TH/MM3 (1.8-7.7); BASOPHIL % 0.6 % (0.0-2.0); EOSINOPHIL # 0.2 TH/MM3 (0-0.4); EOSINOPHIL % 2.7 % (0.0-4.0); HEMATOCRIT 38.6 % (35.0-46.0); HEMO FLAGS DIFF FINAL; LYMPH % 19.2 % (9.0-44.0); LYMPHOCYTE # 1.5 TH/MM3 (1.0-4.8); MEAN CORPUSCULAR HEMOGLOBIN 32.5 PG (27.0-34.0); MEAN CORPUSCULAR HGB CONC 34.9 % (32.0-36.0); MONO % 8.3 % (0.0-8.0); NEUT % 69.2 % (16.0-70.0); PLATELET COUNT 258 TH/MM3 (150-450); RED BLOOD COUNT 4.15 MIL/MM3 (4.00-5.30); RED CELL DISTRIBUTION WIDTH 14.4 % (11.6-17.2); WHITE BLOOD COUNT 7.8 TH/MM3 (4.0-11.0)
[2016-12-19 08:10] VITALS: BP 150/62; PULSE 68
[2016-12-19 08:23] LABS: ALT (GPT) 19 U/L (10-53); ANION GAP 12 MEQ/L (5-15); AST (GOT) 20 U/L (15-37); BICARBONATE 26.2 MEQ/L (21.0-32.0); BLOOD UREA NITROGEN 14 MG/DL (7-18); CHLORIDE 99 MEQ/L (98-107); GLOMERULAR FILTRATION RATE 57 ML/MIN (>89); POTASSIUM 3.1 MEQ/L (3.5-5.1); SODIUM (NA) 137 MEQ/L (136-145)
[2016-12-19 08:26] LABS: ALKALINE PHOSPHATASE 85 U/L (45-117); HDL CHOLESTEROL 45.2 MG/DL (40.0-60.0); LDL CHOLESTEROL 88 MG/DL (0-99); TOTAL BILIRUBIN ADULT 0.4 MG/DL (0.2-1.0)
[2016-12-19] MEDS: POLYETHYLENE GLYCOL 17 GM PKG PO SCH (08:30)
[2016-12-19] MEDS: PROPRANOLOL HCL 20 MG TAB PO SCH (09:00)
[2016-12-19] MEDS: QUEtiapine FUMARATE 25 MG TAB PO SCH ×2 (09:00→20:42)
[2016-12-19] MEDS: ESTRADIOL 1 MG TAB PO SCH (09:00)
[2016-12-19] MEDS: CITALOPRAM HYDROBROMIDE 20 MG TAB PO SCH (09:00)
[2016-12-19] MEDS: MULTIVITAMINS/MINERALS THERAPEUTIC TAB PO SCH (09:00)
[2016-12-19] MEDS: CALCIUM CARBONATE 1.25 GM (CA 500 MG) TAB PO SCH (09:00)
[2016-12-19] MEDS ORDERED: [UNRECOGNIZED DRUG - OTHER] PO SCH (09:00)
[2016-12-19] MEDS: PANTOPRAZOLE SOD 20 MG DELAYED RELEASE TAB PO SCH (09:00)
[2016-12-19] MEDS: aMILoride/HCTZ 5 MG/50 MG TAB PO SCH (09:00)
[2016-12-19] MEDS ORDERED: POTASSIUM CHLORIDE 20 MEQ CONTROLLED RELEASE TAB PO ONE (11:30)
--- NOTE | 2016-12-19 16:00 | HHI.PYPN ---
Subjective Remarks Patient seen in her room with nurse Ori. Patient somewhat irritable though denying suicidality homicidality voices or visions states she does feel better feels medications are helping her, stating "don't belong here anymore." Upon review of patient medical record I feel her diagnosis may been to be expressed has other psychotic disorders F 28 Review of Systems Except as stated in HPI: all other systems reviewed are Neg Objective Alert: Yes [place]: Person, Place Mood: Anxious Affect: Euthymic, Other (mildly irritable) Memory Intact: Comment (fair) Hallucinations: Other (denies) Delusions: No Delusion Type: Other (mildly vigilant) Suicidal: Ideation (denies) Homicidal: Ideation (denies) Insight/Judgment Poor to fair Labs Test 12/18/16 12/19/16 20:32 07:46 Vitamin B12 Level 582 PG/ML White Blood Count 7.8 TH/MM3 Red Blood Count 4.15 MIL/MM3 Hemoglobin 13.5 GM/DL Hematocrit 38.6 % Mean Corpuscular Volume 93.0 FL Mean Corpuscular Hemoglobin 32.5 PG Mean Corpuscular Hemoglobin 34.9 % Concent Red Cell Distribution Width 14.4 % Platelet Count 258 TH/MM3 Mean Platelet Volume 7.4 FL Neutrophils (%) (Auto) 69.2 % Lymphocytes (%) (Auto) 19.2 % Monocytes (%) (Auto) 8.3 % Eosinophils (%) (Auto) 2.7 % Basophils (%) (Auto) 0.6 % Neutrophils # (Auto) 5.4 TH/MM3 Lymphocytes # (Auto) 1.5 TH/MM3 Monocytes # (Auto) 0.6 TH/MM3 Eosinophils # (Auto) 0.2 TH/MM3 Basophils # (Auto) 0.0 TH/MM3 CBC Comment DIFF FINAL Differential Comment Sodium Level 137 MEQ/L Potassium Level 3.1 MEQ/L Chloride Level 99 MEQ/L Carbon Dioxide Level 26.2 MEQ/L Anion Gap 12 MEQ/L Blood Urea Nitrogen 14 MG/DL Creatinine 0.95 MG/DL Estimat Glomerular Filtration 57 ML/MIN Rate Random Glucose 98 MG/DL Calcium Level 9.3 MG/DL Total Bilirubin 0.4 MG/DL Aspartate Amino Transf 20 U/L (AST/SGOT) Alanine Aminotransferase 19 U/L (ALT/SGPT) Alkaline Phosphatase 85 U/L Total Protein 6.5 GM/DL Albumin 3.3 GM/DL Triglycerides Level 126 MG/DL Cholesterol Level 158 MG/DL LDL Cholesterol 88 MG/DL HDL Cholesterol 45.2 MG/DL Cholesterol/HDL Ratio 3.49 RATIO Thyroid Stimulating Hormone 7.200 uIU/ML 3rd Gen Date/Time Procedure Status Source Growth 12/18/16 13:30 Urine Culture - Preliminary Resulted Urine Clean Catch Gram Negative Jesse Vitals/IOs Vital Signs Date Time Temp Pulse Resp B/P Pulse Ox O2 Delivery O2 Flow Rate FiO2 12/19/16 08:10 68 150/62 12/19/16 06:00 98.2 18 98 Intake and Output 12/18/16 12/18/16 12/18/16 07:59 15:59 23:59 Intake Total 2760 ml 0 ml Balance 2760 ml 0 ml Assessment & Plan Problem List: (1) 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 Compliant medications. For now continue treatment Justification for Cont. Inpt. At this time patient decompensate the placed in a lower level of care Discharge Planning To be determined Request HC Surrog/Guard Advoc?: Yes Son Muniz MD December 19, 2016 16:00
[2016-12-19 18:14] VITALS: BP 135/72; PULSE 62; RESP 17; O2SAT 95
[2016-12-19] MEDS: AMITRIPTYLINE HCL 25 MG TAB PO SCH (20:42)
[2016-12-19] MEDS: PRAVASTATIN SOD 40 MG TAB PO SCH (20:43)
[2016-12-19] MEDS: ASPIRIN EC 81 MG TABEC PO SCH (20:43)
[2016-12-19 22:13] LABS: HEMOGLOBIN A1b 0.9 %; HEMOGLOBIN F 1.8 %; HEMOGLOBIN LA1C 1.7 %
[2016-12-19 22:41] LABS: HEMOGLOBIN Ao 84.3 %; HEMOGLOBIN P3 4.7 %
[2016-12-20 05:27] VITALS: PULSE 67; RESP 16; TEMP 95.7; O2SAT 96
[2016-12-20] MEDS: LEVOTHYROXINE SODIUM 150 MCG TAB PO SCH (05:52)
[2016-12-20] MEDS: MULTIVITAMINS/MINERALS THERAPEUTIC TAB PO SCH (08:55)
[2016-12-20] MEDS: CALCIUM CARBONATE 1.25 GM (CA 500 MG) TAB PO SCH (08:55)
[2016-12-20] MEDS: ESTRADIOL 1 MG TAB PO SCH (08:55)
[2016-12-20] MEDS: aMILoride/HCTZ 5 MG/50 MG TAB PO SCH (08:56)
[2016-12-20] MEDS: QUEtiapine FUMARATE 25 MG TAB PO SCH ×2 (08:56→21:06)
[2016-12-20] MEDS: CITALOPRAM HYDROBROMIDE 20 MG TAB PO SCH (08:56)
[2016-12-20] MEDS: PANTOPRAZOLE SOD 20 MG DELAYED RELEASE TAB PO SCH (08:57)
[2016-12-20] MEDS: PROPRANOLOL HCL 20 MG TAB PO SCH (08:57)
[2016-12-20] MEDS: POLYETHYLENE GLYCOL 17 GM PKG PO SCH (08:59)
--- NOTE | 2016-12-20 09:25 | HHI.PYPN ---
Subjective Remarks Patient seen in day room with nurse Payal, chart reviewed. Patient calmer more appropriate compliant medications. Now denies suicidality homicidality voices or visions. Is been compliant with her medications. Distal feel patient has improved to the point where she has ability to sign voluntary. Thus I'll lift the [employer] act allow the patient sign voluntary continue treatment at this time no change Review of Systems Except as stated in HPI: all other systems reviewed are Neg Objective Alert: Yes [place]: Person, Place Mood: Anxious Affect: Euthymic, Other (mildly irritable) Memory Intact: Comment (fair) Hallucinations: Other (denies) Delusions: No Delusion Type: Other (mildly vigilant) Suicidal: Ideation (denies) Homicidal: Ideation (denies) Insight/Judgment Poor Labs Date/Time Procedure Status Source Growth 12/18/16 13:30 Urine Culture - Final Complete Urine Clean Catch Escherichia Coli Vitals/IOs Vital Signs Date Time Temp Pulse Resp B/P Pulse Ox O2 Delivery O2 Flow Rate FiO2 12/20/16 05:27 95.7 67 16 96 12/19/16 18:14 135/72 Intake and Output 12/19/16 12/19/16 12/20/16 08:00 16:00 00:00 Intake Total 120 ml 840 ml 480 ml Balance 120 ml 840 ml 480 ml Assessment & Plan Problem List: (1) 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 Will lift [employer] act allow patient to sign voluntary Justification for Cont. Inpt. At this time patient will decompensate with place to the lower level of care Discharge Planning To be determined Request HC Surrog/Guard Advoc?: Yes Son Muniz MD December 20, 2016 09:25
[2016-12-20 16:00] VITALS: BP 114/61; PULSE 73; RESP 18; TEMP 97; O2SAT 95
[2016-12-20] MEDS ORDERED: POTASSIUM CHLORIDE 25 MEQ EFFERVESCENT TAB PO ONE (16:45)
--- NOTE | 2016-12-20 16:54 | HHI.PR ---
Objective Objective Results - Vital Signs Date Time Temp Pulse Resp B/P Pulse Ox O2 Delivery O2 Flow Rate FiO2 12/20/16 16:00 97.0 73 18 114/61 95 12/20/16 05:27 95.7 67 16 96 12/19/16 18:14 62 17 135/72 95 I/O 12/19/16 12/19/16 12/19/16 12/20/16 12/20/16 12/20/16 07:00 15:00 23:00 07:00 15:00 23:00 Intake Total 960 ml 480 ml 60 ml 240 ml Balance 960 ml 480 ml 60 ml 240 ml Intake Oral 960 ml 60 ml 240 ml Oral Supplement 480 ml # Voids 3 2 1 1 Result Diagram: 12/19/1646 12/19/16 0746 Physical Exam Physical Exam PHYSICAL EXAMINATION GENERAL: This is a well-developed, well-nourished female who appears to be in no acute distress. She is alert and awake, []. HEAD: Normocephalic without any lesion or mass noted. Facial features appear symmetric. OROPHARYNGEAL: Oropharynx without erythema or edema. NECK: Supple. No nuchal rigidity or lymphadenopathy. Trachea midline without deviation. CARDIAC: Regular rhythm, regular rate, S1 and S2 are heard. Murmur []; no gallops or rubs. LUNGS: Clear to auscultation bilaterally. [] wheeze, [] rhonchi or [] rale. No use of accessory muscles on inspiration or expiration. ABDOMEN: Soft, nontender, no organomegaly or masses. Bowel sounds are heard in all four quadrants. No rebound. No guarding. EXTREMITIES: [] edema. Pulses equal bilateral. [] cyanosis. NEUROLOGICAL: Patient mood and affect appropriate. 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 UTI 9. Hypokalemia 81-year-old elderly female with history hypertension, hyperlipidemia TIA. Brought into emergency room under [employer] act for auditory hallucinations. Patient now admitted to psychiatric unit. Auditory hallucinations, psychosis -Continue with psychiatric care and medications Recent episode of chest pain, ruled out for acute coronary syndrome. ASA no further chest pain History of TIA Continue with aspirin Hypothyroid -Continue with home medication, note TSH 7.2 Hypertension, stable continue home medications and monitor vitals vitals reviewed, normal trends, afebrile UTI, culture is pending, Will start Levaquin 500mg. PO daily. K+ 3.1 Gave dose 25meq, today, will recheck BMP in am. Note, 20meq given 24 hrs ago. Seen for Dr. Lambert, D/W patient D/W nurse Francisca Parry December 20, 2016 16:54
[2016-12-20] MEDS ORDERED: LEVOFLOXACIN 500 MG TAB PO SCH (17:00)
[2016-12-20] MEDS: AMITRIPTYLINE HCL 25 MG TAB PO SCH (21:06)
[2016-12-20] MEDS: PRAVASTATIN SOD 40 MG TAB PO SCH (21:06)
[2016-12-20] MEDS: ASPIRIN EC 81 MG TABEC PO SCH (21:06)
[2016-12-21] MEDS: ACETAMINOPHEN 325 MG TAB PO PRN (00:20)
[2016-12-21 05:30] VITALS: BP 113/51; PULSE 71; RESP 17; TEMP 96.4
[2016-12-21] MEDS: LEVOTHYROXINE SODIUM 150 MCG TAB PO SCH (06:31)
[2016-12-21 08:25] LABS: BICARBONATE 29.9 MEQ/L (21.0-32.0); POTASSIUM 3.1 MEQ/L (3.5-5.1)
[2016-12-21] MEDS: aMILoride/HCTZ 5 MG/50 MG TAB PO SCH (09:07)
[2016-12-21] MEDS: MULTIVITAMINS/MINERALS THERAPEUTIC TAB PO SCH (09:07)
[2016-12-21] MEDS: CALCIUM CARBONATE 1.25 GM (CA 500 MG) TAB PO SCH (09:07)
[2016-12-21] MEDS: PANTOPRAZOLE SOD 20 MG DELAYED RELEASE TAB PO SCH (09:07)
[2016-12-21] MEDS: PROPRANOLOL HCL 20 MG TAB PO SCH (09:08)
[2016-12-21] MEDS: ESTRADIOL 1 MG TAB PO SCH (09:09)
[2016-12-21] MEDS: POLYETHYLENE GLYCOL 17 GM PKG PO SCH (09:09)
[2016-12-21] MEDS: QUEtiapine FUMARATE 25 MG TAB PO SCH ×2 (09:09→20:43)
[2016-12-21] MEDS: CITALOPRAM HYDROBROMIDE 20 MG TAB PO SCH (09:09)
[2016-12-21] MEDS ORDERED: LEVOFLOXACIN 500 MG TAB PO SCH (13:00)
--- NOTE | 2016-12-21 15:06 | HHI.PYPN ---
Subjective Remarks Patient seen in day room with nurse Payal, patient calm pleasant did sign voluntary for me this morning. She is calm cooperative today, compliant medications, her delusions appear to be softening. She is still showing some ambiguity about the condition of her son now stating that he is in the hospital very soon. For now continue treatment Review of Systems Except as stated in HPI: all other systems reviewed are Neg Objective Alert: Yes [place]: Person, Place Mood: Anxious Affect: Euthymic, Other (mildly irritable) Memory Intact: Comment (fair) Hallucinations: Other (denies) Delusions: No Delusion Type: Other (mildly vigilant) Suicidal: Ideation (denies) Homicidal: Ideation (denies) Insight/Judgment Poor Labs Test 12/21/16 07:11 Sodium Level 137 MEQ/L Potassium Level 3.1 MEQ/L Chloride Level 99 MEQ/L Carbon Dioxide Level 29.9 MEQ/L Anion Gap 8 MEQ/L Blood Urea Nitrogen 16 MG/DL Creatinine 1.00 MG/DL Estimat Glomerular Filtration 53 ML/MIN Rate Random Glucose 92 MG/DL Calcium Level 9.6 MG/DL Date/Time Procedure Status Source Growth 12/18/16 13:30 Urine Culture - Final Complete Urine Clean Catch Escherichia Coli Vitals/IOs Vital Signs Date Time Temp Pulse Resp B/P Pulse Ox O2 Delivery O2 Flow Rate FiO2 12/21/16 05:30 96.4 71 17 113/51 12/20/16 16:00 95 Intake and Output 12/20/16 12/20/16 12/21/16 08:00 16:00 00:00 Intake Total 300 ml 1020 ml 720 ml Balance 300 ml 1020 ml 720 ml Assessment & Plan Problem List: (1) 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 Compliant medications Justification for Cont. Inpt. At this time patient will decompensate if placed in a lower level of care Discharge Planning To be determined Request HC Surrog/Guard Advoc?: Yes Son Muniz MD December 21, 2016 15:06
[2016-12-21] MEDS: LEVOFLOXACIN 250 MG TAB PO SCH (17:00)
[2016-12-21 17:28] VITALS: BP 107/60; PULSE 65; RESP 17; TEMP 97.4; O2SAT 96
[2016-12-21] MEDS: AMITRIPTYLINE HCL 25 MG TAB PO SCH (20:43)
[2016-12-21] MEDS: ASPIRIN EC 81 MG TABEC PO SCH (20:43)
[2016-12-21] MEDS: PRAVASTATIN SOD 40 MG TAB PO SCH (20:43)
[2016-12-21] MEDS: LORazepam 0.5 MG TAB PO PRN (22:23)
[2016-12-21] MEDS: diphenhydrAMINE HCL 50 MG CAP PO PRN (22:23)
[2016-12-22] MEDS: LEVOTHYROXINE SODIUM 150 MCG TAB PO SCH (05:55)
[2016-12-22 06:25] VITALS: BP 107/77; PULSE 72; RESP 16; TEMP 96.5; O2SAT 96
[2016-12-22] MEDS: POLYETHYLENE GLYCOL 17 GM PKG PO SCH (08:54)
[2016-12-22] MEDS: CALCIUM CARBONATE 1.25 GM (CA 500 MG) TAB PO SCH (08:54)
[2016-12-22] MEDS: PROPRANOLOL HCL 20 MG TAB PO SCH (08:55)
[2016-12-22] MEDS: aMILoride/HCTZ 5 MG/50 MG TAB PO SCH (08:55)
[2016-12-22] MEDS: PANTOPRAZOLE SOD 20 MG DELAYED RELEASE TAB PO SCH (08:55)
[2016-12-22] MEDS: QUEtiapine FUMARATE 25 MG TAB PO SCH ×3 (08:55→21:01)
[2016-12-22] MEDS: CITALOPRAM HYDROBROMIDE 20 MG TAB PO SCH (08:55)
[2016-12-22] MEDS: MULTIVITAMINS/MINERALS THERAPEUTIC TAB PO SCH (08:55)
[2016-12-22] MEDS: ESTRADIOL 1 MG TAB PO SCH (09:00)
--- NOTE | 2016-12-22 12:33 | HHI.PYPN ---
Subjective Remarks Patient seen in [place] with floor staff, patient calm though vigilant, still some mild paranoia when referring to her home situation. She does denies suicidality also denies voices. For now will adjust Seroquel to 25 mg a.m. 25 mg 2 PM 50 mg at bedtime Review of Systems Except as stated in HPI: all other systems reviewed are Neg Objective Alert: Yes [place]: Person, Place Mood: Anxious Affect: Euthymic, Other (mildly irritable) Memory Intact: Comment (fair) Hallucinations: Other (denies) Delusions: No Delusion Type: Other (mildly vigilant) Suicidal: Ideation (denies) Homicidal: Ideation (denies) Insight/Judgment Poor Labs Date/Time Procedure Status Source Growth 12/18/16 13:30 Urine Culture - Final Complete Urine Clean Catch Escherichia Coli Vitals/IOs Vital Signs Date Time Temp Pulse Resp B/P Pulse Ox O2 Delivery O2 Flow Rate FiO2 12/22/16 06:25 96.5 72 16 107/77 96 Intake and Output 12/21/16 12/21/16 12/22/16 08:00 16:00 00:00 Intake Total 720 ml Balance 720 ml Assessment & Plan Problem List: (1) 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 Inpt. At this time patient will decompensate the placed in a lower level of care Discharge Planning To be determined Request HC Surrog/Guard Advoc?: Yes Son Muniz MD December 22, 2016 12:33
--- NOTE | 2016-12-22 14:43 | HHI.PR ---
Subjective Remarks Walking up garcia with assistance of a rolling walker Afebrile Smiling Denies any pain or shortness of breath Objective Objective Results - Vital Signs Date Time Temp Pulse Resp B/P Pulse Ox O2 Delivery O2 Flow Rate FiO2 12/22/16 06:25 96.5 72 16 107/77 96 12/21/16 17:28 97.4 65 17 107/60 96 I/O 12/21/16 12/21/16 12/21/16 12/22/16 12/22/16 12/22/16 07:00 15:00 23:00 07:00 15:00 23:00 Intake Total 720 ml 0 ml 1080 ml Balance 720 ml 0 ml 1080 ml Intake Oral 480 ml 0 ml 1080 ml Oral Supplement 240 ml # Voids 1 0 1 2 Result Diagram: 12/19/1646 12/21/16 0711 Other Results Administered Medications Medications (Trade) Dose Ordered Sig/Bob Route PRN Reason Start Time Stop Time Status Last Admin Dose Admin Lorazepam (Ativan) 0.5 mg Q12H PRN PO MODERATE TO SEVERE ANXIETY 12/17/16 15:00 12/21/16 22:23 Diphenhydramine HCl (Benadryl) 50 mg HS PRN PO INSOMNIA 12/18/16 10:00 12/21/16 22:23 Acetaminophen (Tylenol) 650 mg Q4H PRN PO Pain 1-5 or Temp >101F 12/18/16 10:00 12/21/16 00:20 Amiloride/HCTZ (Moduretic 5-50 Mg) 1 tab DAILY PO 12/19/16 09:00 12/22/16 08:55 Amitriptyline HCl (Elavil) 25 mg HS PO 12/18/16 21:00 12/21/16 20:43 Citalopram Hydrobromide (CeleXA) 20 mg DAILY PO 12/19/16 09:00 12/22/16 08:55 Estradiol (Estradiol) 1 mg DAILY PO 12/19/16 09:00 12/22/16 09:00 Levothyroxine Sodium (Synthroid) 150 mcg DAILY@06 PO 12/19/16 06:00 12/22/16 05:55 Polyethylene Glycol (Miralax) 17 gm DAILY PO 12/19/16 09:00 12/22/16 08:54 Aspirin (Ecotrin Ec) 81 mg HS PO 12/18/16 21:00 12/21/16 20:43 Calcium Carbonate (Oscal) 500 mg DAILY PO 12/19/16 09:00 12/22/16 08:54 Multivitamins/ Minerals Therapeutic (Theragran M Tab) 1 tab DAILY PO 12/19/16 09:00 12/22/16 08:55 Pantoprazole Sodium (Protonix) 20 mg DAILY PO 12/19/16 09:00 12/22/16 08:55 Propranolol HCl (Inderal) 60 mg DAILY PO 12/19/16 09:00 12/22/16 08:55 Pravastatin Sodium (Pravachol) 40 mg HS PO 12/18/16 21:00 12/21/16 20:43 Levofloxacin (Levaquin) 250 mg Q24H PO 12/21/16 17:00 12/21/16 17:00 Quetiapine Fumarate (SEROquel) 25 mg DAILY@08,14 PO 12/22/16 14:00 12/22/16 14:00 Medications and IVs Last Impressions Brain MRI 12/18/16 0000 Signed Impressions: Service Date/Time: Sunday, December 18, 2016 16:45 - CONCLUSION: Patchy white matter disease. Sinus disease. No mass or other acute abnormality in the posterior fossa as questioned. Son Barrios MD ROS General: Weakness (generalized feeling better), Other (10 point ROS done positives noted of systems negative or unremarkable) Cardiac: Chest Pain ( Since admission) /LINE HELPER: Urgency (at times being treated for UTI) Neuro/MS: Other (affect is pleasant) Physical Exam Physical Exam PHYSICAL EXAMINATION GENERAL: This is an obese elderly female who appears to be in no acute distress. She is alert and awake, HEAD: Normocephalic without any lesion or mass noted. Facial features appear symmetric. OROPHARYNGEAL: Oropharynx without erythema or edema. NECK: Supple. No nuchal rigidity or lymphadenopathy. Trachea midline without deviation. CARDIAC: Regular rhythm, regular rate, S1 and S2 are heard. LUNGS: Clear to auscultation bilaterally ABDOMEN: Soft, nontender, no organomegaly or masses. Bowel sounds are heard in all four quadrants. EXTREMITIES: no edema. Pulses intact NEUROLOGICAL: Patient mood and affect appropriate. Affect is pleasant SKIN:Warm and moist, dry A/P Assessment and Plan (1) Auditory hallucination (2) Hyperlipidemia (3) Tremor (4) HTN (hypertension) (5) Hypothyroid (6) Psychotic disorder (7) Hx TIA/stroke w/o resid 8. UTI 9. Hypokalemia Auditory hallucinations, psychosis -Continue with psychiatric care and medications Patient is alert and smiling cooperative, walking up the garcia with a walker and seems to feel better. Recent episode of chest pain, ruled out for acute coronary syndrome. ASA no further chest pain since admission History of TIA, aspirin, monitor for any acute symptoms Hypothyroid -Continue with home medication, note TSH 7.2 vitals reviewed, normal trends, afebrile UTI, culture is pending, by mouth Levaquin daily K+ 3.1 without any changes even though patient has been receiving K doses. Limit fluids to 1.5 L per day between meals and none in between if at all possible. Potassium 50 mEq given today, will recheck K in the morning Seen for Dr. Lambert, seen on her behalf D/W patient D/W nurse Francisca Parry December 22, 2016 14:43
[2016-12-22] MEDS ORDERED: POTASSIUM CHLORIDE 25 MEQ EFFERVESCENT TAB NG SCH (15:00)
[2016-12-22] MEDS: LEVOFLOXACIN 250 MG TAB PO SCH (17:04)
[2016-12-22 17:42] VITALS: BP 119/78; PULSE 69; RESP 17; TEMP 97; O2SAT 96
[2016-12-22] MEDS: ASPIRIN EC 81 MG TABEC PO SCH (21:01)
[2016-12-22] MEDS: PRAVASTATIN SOD 40 MG TAB PO SCH (21:01)
[2016-12-22] MEDS: AMITRIPTYLINE HCL 25 MG TAB PO SCH (21:01)
[2016-12-23] MEDS: LEVOTHYROXINE SODIUM 150 MCG TAB PO SCH (05:49)
[2016-12-23 06:00] VITALS: BP 149/65; PULSE 75; RESP 16; TEMP 97.9
[2016-12-23] MEDS: PANTOPRAZOLE SOD 20 MG DELAYED RELEASE TAB PO SCH (07:57)
[2016-12-23] MEDS: CALCIUM CARBONATE 1.25 GM (CA 500 MG) TAB PO SCH (07:57)
[2016-12-23] MEDS: MULTIVITAMINS/MINERALS THERAPEUTIC TAB PO SCH (07:57)
[2016-12-23] MEDS: ESTRADIOL 1 MG TAB PO SCH (07:57)
[2016-12-23] MEDS: QUEtiapine FUMARATE 25 MG TAB PO SCH ×3 (07:57→20:44)
[2016-12-23] MEDS: CITALOPRAM HYDROBROMIDE 20 MG TAB PO SCH (07:57)
[2016-12-23] MEDS: aMILoride/HCTZ 5 MG/50 MG TAB PO SCH (07:58)
[2016-12-23] MEDS: PROPRANOLOL HCL 20 MG TAB PO SCH (07:58)
[2016-12-23] MEDS: POLYETHYLENE GLYCOL 17 GM PKG PO SCH (07:58)
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
[2016-12-23] MEDS: LEVOFLOXACIN 250 MG TAB PO SCH (17:27)
[2016-12-23 18:00] VITALS: BP 126/77; PULSE 68; RESP 18; TEMP 97.8; O2SAT 99
[2016-12-23] MEDS: ASPIRIN EC 81 MG TABEC PO SCH (20:44)
[2016-12-23] MEDS: AMITRIPTYLINE HCL 25 MG TAB PO SCH (20:44)
[2016-12-23] MEDS: PRAVASTATIN SOD 40 MG TAB PO SCH (20:44)
[2016-12-24] MEDS: LEVOTHYROXINE SODIUM 150 MCG TAB PO SCH (05:31)
[2016-12-24 05:58] VITALS: BP 133/53; PULSE 72; RESP 16; TEMP 97.8; O2SAT 97
[2016-12-24] MEDS: MULTIVITAMINS/MINERALS THERAPEUTIC TAB PO SCH (08:50)
[2016-12-24] MEDS: PROPRANOLOL HCL 20 MG TAB PO SCH (08:50)
[2016-12-24] MEDS: ESTRADIOL 1 MG TAB PO SCH (08:50)
[2016-12-24] MEDS: QUEtiapine FUMARATE 25 MG TAB PO SCH ×3 (08:50→20:43)
[2016-12-24] MEDS: CITALOPRAM HYDROBROMIDE 20 MG TAB PO SCH (08:50)
[2016-12-24] MEDS: aMILoride/HCTZ 5 MG/50 MG TAB PO SCH (08:51)
[2016-12-24] MEDS: CALCIUM CARBONATE 1.25 GM (CA 500 MG) TAB PO SCH (08:51)
[2016-12-24] MEDS: POLYETHYLENE GLYCOL 17 GM PKG PO SCH (08:51)
[2016-12-24] MEDS: PANTOPRAZOLE SOD 20 MG DELAYED RELEASE TAB PO SCH (08:51)
[2016-12-24] MEDS: ACETAMINOPHEN 325 MG TAB PO PRN (12:00)
--- NOTE | 2016-12-24 13:44 | HHI.PYPN ---
Subjective Remarks Pt seen and discussed with staff. She has been less agitated today. She reports that "management" has been talking to her and asking questions about her interests. Last night reported PCP was talking to her. She has been more calm and is cooperative with medications. 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 Estimated LOS: days Justification for Cont. Inpt. impairments in reality testing Request HC Surrog/Guard Advoc?: Yes Marcelina Krishnan MD December 24, 2016 13:43
[2016-12-24] MEDS: LEVOFLOXACIN 250 MG TAB PO SCH (16:34)
[2016-12-24 19:55] VITALS: BP 104/66; PULSE 70; RESP 16; TEMP 97; O2SAT 98
[2016-12-24] MEDS: ASPIRIN EC 81 MG TABEC PO SCH (20:43)
[2016-12-24] MEDS: AMITRIPTYLINE HCL 25 MG TAB PO SCH (20:43)
[2016-12-24] MEDS: PRAVASTATIN SOD 40 MG TAB PO SCH (20:43)
[2016-12-25] MEDS: LEVOTHYROXINE SODIUM 150 MCG TAB PO SCH (05:32)
[2016-12-25 05:35] VITALS: BP 146/74; PULSE 88; RESP 18; TEMP 97.9; O2SAT 97
[2016-12-25] MEDS: CALCIUM CARBONATE 1.25 GM (CA 500 MG) TAB PO SCH (08:38)
[2016-12-25] MEDS: POLYETHYLENE GLYCOL 17 GM PKG PO SCH (08:41)
[2016-12-25] MEDS: MULTIVITAMINS/MINERALS THERAPEUTIC TAB PO SCH (08:41)
[2016-12-25] MEDS: aMILoride/HCTZ 5 MG/50 MG TAB PO SCH (08:41)
[2016-12-25] MEDS: QUEtiapine FUMARATE 25 MG TAB PO SCH ×3 (08:41→20:48)
[2016-12-25] MEDS: PANTOPRAZOLE SOD 20 MG DELAYED RELEASE TAB PO SCH (08:41)
[2016-12-25] MEDS: CITALOPRAM HYDROBROMIDE 20 MG TAB PO SCH (08:41)
[2016-12-25] MEDS: PROPRANOLOL HCL 20 MG TAB PO SCH (08:41)
[2016-12-25] MEDS: ESTRADIOL 1 MG TAB PO SCH (08:42)
--- NOTE | 2016-12-25 08:51 | HHI.PYPN ---
Subjective Remarks Patient seen sitting in [place] with floor staff, chart reviewed, patient compliant medications. She is somewhat sad today will decrease range intensity of her affect, stating that "Ori told me he is picking me up today". Patient remains somewhat vigilant though the paranoia is markedly decreased. She is now vague about any auditory hallucinations. For now continue treatment Review of Systems Except as stated in HPI: all other systems reviewed are Neg Objective Alert: Yes [place]: Person, Place Mood: Calm Affect: Restricted Memory Intact: Comment (fair) Hallucinations: Auditory Delusions: Yes Delusion Type: Paranoid Suicidal: Ideation (denies) Homicidal: Ideation (denies) Insight/Judgment Poor Vitals/IOs Vital Signs Date Time Temp Pulse Resp B/P Pulse Ox O2 Delivery O2 Flow Rate FiO2 12/25/16 05:35 97.9 88 18 146/74 97 Intake and Output 12/24/16 12/24/16 12/25/16 08:00 16:00 00:00 Intake Total 240 ml 240 ml Balance 240 ml 240 ml Assessment & Plan Problem List: (1) 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 Compliant medications. No behavioral problems. Justification for Cont. Inpt. At this time patient would decompensate if placed in a lower level of care Discharge Planning To be determined Request HC Surrog/Guard Advoc?: Yes Son Muniz MD December 25, 2016 08:51
[2016-12-25] MEDS: LEVOFLOXACIN 250 MG TAB PO SCH (17:23)
[2016-12-25 18:00] VITALS: BP 79/63; PULSE 69; RESP 20; TEMP 98; O2SAT 93
[2016-12-25] MEDS: AMITRIPTYLINE HCL 25 MG TAB PO SCH (20:48)
[2016-12-25] MEDS: ASPIRIN EC 81 MG TABEC PO SCH (20:48)
[2016-12-25] MEDS: PRAVASTATIN SOD 40 MG TAB PO SCH (20:48)
[2016-12-26] MEDS: LEVOTHYROXINE SODIUM 150 MCG TAB PO SCH (05:54)
[2016-12-26 06:04] VITALS: BP 156/66; PULSE 60; RESP 18; TEMP 98.2; O2SAT 98
[2016-12-26] MEDS: ESTRADIOL 1 MG TAB PO SCH (08:19)
[2016-12-26] MEDS: CALCIUM CARBONATE 1.25 GM (CA 500 MG) TAB PO SCH (08:19)
[2016-12-26] MEDS: MULTIVITAMINS/MINERALS THERAPEUTIC TAB PO SCH (08:19)
[2016-12-26] MEDS: PROPRANOLOL HCL 20 MG TAB PO SCH (08:19)
[2016-12-26] MEDS: aMILoride/HCTZ 5 MG/50 MG TAB PO SCH (08:19)
[2016-12-26] MEDS: CITALOPRAM HYDROBROMIDE 20 MG TAB PO SCH (08:20)
[2016-12-26] MEDS: PANTOPRAZOLE SOD 20 MG DELAYED RELEASE TAB PO SCH (08:20)
[2016-12-26] MEDS: QUEtiapine FUMARATE 25 MG TAB PO SCH ×3 (08:20→21:22)
[2016-12-26] MEDS: POLYETHYLENE GLYCOL 17 GM PKG PO SCH (08:25)
--- NOTE | 2016-12-26 14:37 | HHI.PYPN ---
Subjective Remarks Patient seen with counselor Molly, chart review, patient compliant medications. We attempted discussed possible discharge plans with returning to patient's [facility] with her daughter. Patient continues sure her delusions about being monitored and spite upon at that facility no stating she wants to go live with a niece and nephew. Patient's paranoia while somewhat less expressed in the past few today showed itself more significantly today. Will increase Seroquel to 50 mg 3 times a day Review of Systems Except as stated in HPI: all other systems reviewed are Neg Objective Alert: Yes [place]: Person, Place Mood: Calm Affect: Restricted Memory Intact: Comment (fair) Hallucinations: Auditory Delusions: Yes Delusion Type: Paranoid Suicidal: Ideation (denies) Homicidal: Ideation (denies) Insight/Judgment Very poor Vitals/IOs Vital Signs Date Time Temp Pulse Resp B/P Pulse Ox O2 Delivery O2 Flow Rate FiO2 12/26/16 06:04 98.2 60 18 156/66 98 Intake and Output 12/25/16 12/25/16 12/26/16 08:00 16:00 00:00 Intake Total 0 ml 720 ml Balance 0 ml 720 ml Assessment & Plan Problem List: (1) 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 Will increase Seroquel to 50 mg 3 times a day Justification for Cont. Inpt. At this time patient will decompensate and placed in a lower level of care Discharge Planning To be determined Request HC Surrog/Guard Advoc?: Yes Son Muniz MD December 26, 2016 14:37
[2016-12-26 17:16] VITALS: BP 122/59; PULSE 64; RESP 18; TEMP 97.2
[2016-12-26] MEDS: LEVOFLOXACIN 250 MG TAB PO SCH (18:41)
[2016-12-26] MEDS: PRAVASTATIN SOD 40 MG TAB PO SCH (21:00)
[2016-12-26] MEDS: AMITRIPTYLINE HCL 25 MG TAB PO SCH (21:23)
[2016-12-26] MEDS: ASPIRIN EC 81 MG TABEC PO SCH (21:23)
[2016-12-27] MEDS: LEVOTHYROXINE SODIUM 150 MCG TAB PO SCH (05:43)
[2016-12-27 06:00] VITALS: BP 127/59; PULSE 64; RESP 16; TEMP 98.4; O2SAT 97
[2016-12-27] MEDS: aMILoride/HCTZ 5 MG/50 MG TAB PO SCH (08:42)
[2016-12-27] MEDS: CALCIUM CARBONATE 1.25 GM (CA 500 MG) TAB PO SCH (08:42)
[2016-12-27] MEDS: POLYETHYLENE GLYCOL 17 GM PKG PO SCH (08:42)
[2016-12-27] MEDS: PANTOPRAZOLE SOD 20 MG DELAYED RELEASE TAB PO SCH (08:43)
[2016-12-27] MEDS: CITALOPRAM HYDROBROMIDE 20 MG TAB PO SCH (08:43)
[2016-12-27] MEDS: PROPRANOLOL HCL 20 MG TAB PO SCH (08:43)
[2016-12-27] MEDS: MULTIVITAMINS/MINERALS THERAPEUTIC TAB PO SCH (08:43)
[2016-12-27] MEDS: QUEtiapine FUMARATE 25 MG TAB PO SCH ×3 (08:43→21:35)
[2016-12-27] MEDS: ESTRADIOL 1 MG TAB PO SCH (09:00)
[2016-12-27] MEDS: LEVOFLOXACIN 250 MG TAB PO SCH (15:25)
[2016-12-27 16:00] VITALS: BP 118/56; PULSE 68; RESP 16; TEMP 97.4; O2SAT 94
--- NOTE | 2016-12-27 16:18 | HHI.PYPN ---
Subjective Remarks Patient seen in [place] with floor staff, but she remains calm, she continues to remain isolative. Does show compliance with medication. While the delusions and paranoia persist. For now continue treatment Review of Systems Except as stated in HPI: all other systems reviewed are Neg Objective Alert: Yes [place]: Person, Place Mood: Calm Affect: Restricted Memory Intact: Comment (fair) Hallucinations: Auditory Delusions: Yes Delusion Type: Paranoid Suicidal: Ideation (denies) Homicidal: Ideation (denies) Insight/Judgment Poor Vitals/IOs Vital Signs Date Time Temp Pulse Resp B/P Pulse Ox O2 Delivery O2 Flow Rate FiO2 12/27/16 06:00 98.4 64 16 127/59 97 Intake and Output 12/26/16 12/26/16 12/27/16 08:00 16:00 00:00 Intake Total 480 ml Balance 480 ml Assessment & Plan Problem List: (1) 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 Compliant medications. For now continue treatment Justification for Cont. Inpt. At this time patient will decompensate if placed in a lower level of care Discharge Planning Be determined Request HC Surrog/Guard Advoc?: Yes Son Muniz MD December 27, 2016 16:18
[2016-12-27] MEDS: PRAVASTATIN SOD 40 MG TAB PO SCH (21:00)
[2016-12-27] MEDS: ASPIRIN EC 81 MG TABEC PO SCH (21:34)
[2016-12-27] MEDS: AMITRIPTYLINE HCL 25 MG TAB PO SCH (21:35)
[2016-12-28 05:44] VITALS: BP 156/69; PULSE 64; RESP 16; TEMP 97.1; O2SAT 98
[2016-12-28] MEDS: LEVOTHYROXINE SODIUM 150 MCG TAB PO SCH (06:14)
[2016-12-28] MEDS: PANTOPRAZOLE SOD 20 MG DELAYED RELEASE TAB PO SCH (09:00)
[2016-12-28] MEDS: POLYETHYLENE GLYCOL 17 GM PKG PO SCH (09:22)
[2016-12-28] MEDS: PROPRANOLOL HCL 20 MG TAB PO SCH (09:25)
[2016-12-28] MEDS: CITALOPRAM HYDROBROMIDE 20 MG TAB PO SCH (09:28)
[2016-12-28] MEDS: QUEtiapine FUMARATE 25 MG TAB PO SCH ×3 (09:28→20:21)
[2016-12-28] MEDS: CALCIUM CARBONATE 1.25 GM (CA 500 MG) TAB PO SCH (09:28)
[2016-12-28] MEDS: aMILoride/HCTZ 5 MG/50 MG TAB PO SCH (09:28)
[2016-12-28] MEDS: ESTRADIOL 1 MG TAB PO SCH (09:28)
[2016-12-28] MEDS: MULTIVITAMINS/MINERALS THERAPEUTIC TAB PO SCH (09:29)
--- NOTE | 2016-12-28 14:20 | HHI.PYPN ---
Subjective Remarks Patient seen in her room with floor staff, patient laying in bed, patient's mood appears more dysphoric, decrease range of motion intensity. She still is vigilance showing her delusional features. She is essentially noncompliant medication today for now continue treatment Review of Systems Except as stated in HPI: all other systems reviewed are Neg Objective Alert: Yes [place]: Person, Place Mood: Calm Affect: Restricted Memory Intact: Comment (fair) Hallucinations: Auditory Delusions: Yes Delusion Type: Paranoid Suicidal: Ideation (denies) Homicidal: Ideation (denies) Insight/Judgment Very poor Vitals/IOs Vital Signs Date Time Temp Pulse Resp B/P Pulse Ox O2 Delivery O2 Flow Rate FiO2 12/28/16 05:44 97.1 64 16 156/69 98 Intake and Output 12/27/16 12/27/16 12/28/16 08:00 16:00 00:00 Intake Total 600 ml Balance 600 ml Assessment & Plan Problem List: (1) Other psychotic disorder not due to a substance or known physiological condition ICD Code: F28 Assessment & Plan Estimated LOS: days patient continue somewhat depressed with psychotic features. Showing some noncompliance medication today Justification for Cont. Inpt. At this time patient decompensate placed in a lower level of care Discharge Planning To be determined Request HC Surrog/Guard Advoc?: Yes Son Muniz MD Dec 28, 2016 14:19
[2016-12-28 16:00] VITALS: BP 130/85; PULSE 62; RESP 17; TEMP 97.3; O2SAT 96
[2016-12-28] MEDS: LEVOFLOXACIN 250 MG TAB PO SCH (17:25)
[2016-12-28] MEDS: AMITRIPTYLINE HCL 25 MG TAB PO SCH (20:21)
[2016-12-28] MEDS: ASPIRIN EC 81 MG TABEC PO SCH (20:21)
[2016-12-28] MEDS: diphenhydrAMINE HCL 50 MG CAP PO PRN (20:21)
[2016-12-28] MEDS: PRAVASTATIN SOD 40 MG TAB PO SCH ×2 (20:22→20:29)
[2016-12-29] MEDS: LEVOTHYROXINE SODIUM 150 MCG TAB PO SCH ×2 (05:47→06:00)
[2016-12-29 06:00] VITALS: BP 156/80; PULSE 67; RESP 16; TEMP 98; O2SAT 97
[2016-12-29] MEDS: QUEtiapine FUMARATE 25 MG TAB PO SCH ×4 (08:45→21:00)
[2016-12-29] MEDS: aMILoride/HCTZ 5 MG/50 MG TAB PO SCH (08:46)
[2016-12-29] MEDS: PROPRANOLOL HCL 20 MG TAB PO SCH (08:46)
[2016-12-29] MEDS: CITALOPRAM HYDROBROMIDE 20 MG TAB PO SCH (08:46)
[2016-12-29] MEDS: MULTIVITAMINS/MINERALS THERAPEUTIC TAB PO SCH (08:46)
[2016-12-29] MEDS: POLYETHYLENE GLYCOL 17 GM PKG PO SCH (08:46)
[2016-12-29] MEDS: PANTOPRAZOLE SOD 20 MG DELAYED RELEASE TAB PO SCH (08:46)
[2016-12-29] MEDS: CALCIUM CARBONATE 1.25 GM (CA 500 MG) TAB PO SCH (08:46)
[2016-12-29] MEDS: ESTRADIOL 1 MG TAB PO SCH (08:46)
--- NOTE | 2016-12-29 10:26 | HHI.PYPN ---
Subjective Remarks Patient seen in day room with nurse Brenda, chart reviewed. Patient continues to show poor compliance with medication, did encourage her for compliance insomuch as that would indicate cooperation leading to discharge. Patient still denies auditory hallucinations though there is still some mild vigilance and paranoia noted. She denies suicidality homicidality voices or visions Review of Systems Except as stated in HPI: all other systems reviewed are Neg Objective Alert: Yes [place]: Person, Place Mood: Calm Affect: Restricted Memory Intact: Comment (fair) Hallucinations: Auditory Delusions: Yes Delusion Type: Paranoid Suicidal: Ideation (denies) Homicidal: Ideation (denies) Insight/Judgment Poor Vitals/IOs Vital Signs Date Time Temp Pulse Resp B/P Pulse Ox O2 Delivery O2 Flow Rate FiO2 12/29/16 06:00 98.0 67 16 156/80 97 Assessment & Plan Problem List: (1) Other psychotic disorder not due to a substance or known physiological condition ICD Code: F28 Assessment & Plan Estimated LOS: days patient continues vigilant though the psychosis a softening , there continues poor compliance with medication, did encourage cooperation. Justification for Cont. Inpt. With this time patient will decompensate with placed in a lower level care Discharge Planning To be determined Request HC Surrog/Guard Advoc?: Yes Son Muniz MD Dec 29, 2016 10:26
[2016-12-29] MEDS: LEVOFLOXACIN 250 MG TAB PO SCH (17:00)
[2016-12-29] MEDS: ASPIRIN EC 81 MG TABEC PO SCH ×2 (20:48→23:00)
[2016-12-29] MEDS: PRAVASTATIN SOD 40 MG TAB PO SCH ×2 (20:49→21:00)
[2016-12-29] MEDS: AMITRIPTYLINE HCL 25 MG TAB PO SCH ×2 (20:49→21:00)
[2016-12-30] MEDS: ASPIRIN EC 81 MG TABEC PO SCH (01:03)
[2016-12-30] MEDS: LEVOTHYROXINE SODIUM 150 MCG TAB PO SCH (06:00)
[2016-12-30 06:17] VITALS: BP 160/73; PULSE 80; RESP 19; TEMP 97.6; O2SAT 98
[2016-12-30] MEDS: CITALOPRAM HYDROBROMIDE 20 MG TAB PO SCH (08:51)
[2016-12-30] MEDS: MULTIVITAMINS/MINERALS THERAPEUTIC TAB PO SCH (08:51)
[2016-12-30] MEDS: ESTRADIOL 1 MG TAB PO SCH (08:51)
[2016-12-30] MEDS: aMILoride/HCTZ 5 MG/50 MG TAB PO SCH (08:51)
[2016-12-30] MEDS: PANTOPRAZOLE SOD 20 MG DELAYED RELEASE TAB PO SCH (08:51)
[2016-12-30] MEDS: CALCIUM CARBONATE 1.25 GM (CA 500 MG) TAB PO SCH (08:52)
[2016-12-30] MEDS: QUEtiapine FUMARATE 25 MG TAB PO SCH ×3 (08:52→22:01)
[2016-12-30] MEDS: PROPRANOLOL HCL 20 MG TAB PO SCH (08:52)
[2016-12-30] MEDS: POLYETHYLENE GLYCOL 17 GM PKG PO SCH (08:55)
--- NOTE | 2016-12-30 15:45 | HHI.PYPN ---
Subjective Remarks Pt seen and discused with staff. She remains paranoid and delusional. RN reports that pt insists that she is NPO due to surgery today on unit. She refused medication this afternoon and only took morning medication with much coaxing by RN. PO intake is poor today due to delusion that she is about to have surgery and is NPO. She states that her surgeon is on the unit. Objective Alert: Yes [place]: Person, Place Mood: Calm Affect: Restricted Memory Intact: Comment (fair) Hallucinations: Auditory Delusions: Yes Delusion Type: Paranoid, Other (believes she is having surgery today) Suicidal: Ideation (denies) Homicidal: Ideation (denies) Insight/Judgment poor Vitals/IOs Vital Signs Date Time Temp Pulse Resp B/P Pulse Ox O2 Delivery O2 Flow Rate FiO2 12/30/16 06:17 97.6 80 19 160/73 98 Assessment & Plan Problem List: (1) Other psychotic disorder not due to a substance or known physiological condition ICD Code: F28 Assessment & Plan Continue current tx plan. Continue to encourage medication compliance. Estimated LOS: days Justification for Cont. Inpt. poor self care due to psychosis Request HC Surrog/Guard Advoc?: Yes Marcelina Krishnan MD Dec 30, 2016 3:45 pm
[2016-12-30] MEDS: LEVOFLOXACIN 250 MG TAB PO SCH (17:00)
[2016-12-30 18:29] VITALS: BP 146/70; PULSE 74; RESP 18; TEMP 97.9; O2SAT 98
[2016-12-30] MEDS: PRAVASTATIN SOD 40 MG TAB PO SCH (21:00)
[2016-12-30] MEDS: AMITRIPTYLINE HCL 25 MG TAB PO SCH (22:00)
[2016-12-30] MEDS: ACETAMINOPHEN 325 MG TAB PO PRN (22:09)
[2016-12-31 06:25] VITALS: BP 130/75; PULSE 71; RESP 16; TEMP 97.4; O2SAT 100
[2016-12-31] MEDS: LEVOTHYROXINE SODIUM 150 MCG TAB PO SCH (06:33)
[2016-12-31] MEDS: QUEtiapine FUMARATE 25 MG TAB PO SCH ×5 (08:00→21:23)
[2016-12-31] MEDS: ESTRADIOL 1 MG TAB PO SCH ×2 (08:49→09:00)
[2016-12-31] MEDS: MULTIVITAMINS/MINERALS THERAPEUTIC TAB PO SCH ×2 (08:49→09:00)
[2016-12-31] MEDS: CITALOPRAM HYDROBROMIDE 20 MG TAB PO SCH ×2 (08:49→09:00)
[2016-12-31] MEDS: POLYETHYLENE GLYCOL 17 GM PKG PO SCH ×2 (08:49→09:00)
[2016-12-31] MEDS: PANTOPRAZOLE SOD 20 MG DELAYED RELEASE TAB PO SCH (08:49)
[2016-12-31] MEDS: aMILoride/HCTZ 5 MG/50 MG TAB PO SCH (08:49)
[2016-12-31] MEDS: PROPRANOLOL HCL 20 MG TAB PO SCH (08:49)
[2016-12-31] MEDS: CALCIUM CARBONATE 1.25 GM (CA 500 MG) TAB PO SCH ×2 (08:49→09:00)
[2016-12-31] MEDS: LEVOFLOXACIN 250 MG TAB PO SCH (16:50)
--- NOTE | 2016-12-31 17:54 | HHI.PYPN ---
Subjective Remarks Pt seen and discussed with staff. She remains paranoid and has refused medications today. She refused meals due to paranoia but did eat some snacks with staff encouragement. No SI/HI Objective Alert: Yes [place]: Person, Place, Date Mood: Calm Affect: Restricted Memory Intact: Comment (fair) Hallucinations: Auditory (internally stimulated) Delusions: Yes Delusion Type: Paranoid, Other (believes she is having surgery today) Suicidal: Ideation (denies) Homicidal: Ideation (denies) Insight/Judgment poor Vitals/IOs Vital Signs Date Time Temp Pulse Resp B/P Pulse Ox O2 Delivery O2 Flow Rate FiO2 12/31/16 06:25 97.4 71 16 130/75 100 Intake and Output 12/30/16 12/30/16 12/31/16 08:00 16:00 00:00 Intake Total 240 ml Balance 240 ml Assessment & Plan Problem List: (1) Other psychotic disorder not due to a substance or known physiological condition ICD Code: F28 Assessment & Plan Continue to encourage medication compliance. Continue current tx plan. Estimated LOS: days Justification for Cont. Inpt. poor Request HC Surrog/Guard Advoc?: Yes Marcelina Krishnan MD Dec 31, 2016 17:54
[2016-12-31 18:19] VITALS: BP 157/69; PULSE 66; RESP 17; TEMP 97.9; O2SAT 100
[2016-12-31] MEDS: PRAVASTATIN SOD 40 MG TAB PO SCH (21:00)
[2016-12-31] MEDS: ACETAMINOPHEN 325 MG TAB PO PRN (21:23)
[2016-12-31] MEDS: AMITRIPTYLINE HCL 25 MG TAB PO SCH (21:24)
[2016-12-31] MEDS: ASPIRIN EC 81 MG TABEC PO SCH (21:24)
[2017-01-01] MEDS: LEVOTHYROXINE SODIUM 150 MCG TAB PO SCH (06:22)
[2017-01-01 06:25] VITALS: BP 139/65; PULSE 74; RESP 16; TEMP 98.1; O2SAT 100
[2017-01-01] MEDS: PROPRANOLOL HCL 20 MG TAB PO SCH (09:09)
[2017-01-01] MEDS: QUEtiapine FUMARATE 25 MG TAB PO SCH ×2 (09:10→16:32)
[2017-01-01] MEDS: CITALOPRAM HYDROBROMIDE 20 MG TAB PO SCH (09:10)
[2017-01-01] MEDS: MULTIVITAMINS/MINERALS THERAPEUTIC TAB PO SCH (09:13)
[2017-01-01] MEDS: ESTRADIOL 1 MG TAB PO SCH (09:14)
[2017-01-01] MEDS: CALCIUM CARBONATE 1.25 GM (CA 500 MG) TAB PO SCH (09:14)
[2017-01-01] MEDS: PANTOPRAZOLE SOD 20 MG DELAYED RELEASE TAB PO SCH (09:14)
[2017-01-01] MEDS: aMILoride/HCTZ 5 MG/50 MG TAB PO SCH (09:14)
[2017-01-01] MEDS: POLYETHYLENE GLYCOL 17 GM PKG PO SCH (09:16)
--- NOTE | 2017-01-01 13:29 | HHI.PYPN ---
Subjective Remarks Patient seen with treatment team, patient continues delusional stating that her senior care "blew up" also stating that "niece here every day wants for me to be released". Patient no behavioral problems, compliant medications. Will DC the at bedtime Seroquel increase the twice a day Seroquel to 75 mg 9 AM and 4 PM Review of Systems Except as stated in HPI: all other systems reviewed are Neg Objective Alert: Yes [place]: Person, Place, Date Mood: Calm Affect: Restricted Memory Intact: Comment (fair) Hallucinations: Auditory (internally stimulated) Delusions: Yes Delusion Type: Paranoid, Other (believes she is having surgery today) Suicidal: Ideation (denies) Homicidal: Ideation (denies) Insight/Judgment Very poor Vitals/IOs Vital Signs Date Time Temp Pulse Resp B/P Pulse Ox O2 Delivery O2 Flow Rate FiO2 01/01/17 06:25 98.1 74 16 139/65 100 Intake and Output 12/31/16 12/31/16 01/01/17 08:00 16:00 00:00 Intake Total 0 ml 240 ml Balance 0 ml 240 ml Assessment & Plan Problem List: (1) Other psychotic disorder not due to a substance or known physiological condition ICD Code: F28 Assessment & Plan Estimated LOS: days patient continues delusional. The no behavioral problems. See medication adjustment about Justification for Cont. Inpt. At this time patient will decompensate to place to the lower level of care Discharge Planning To be determined Request HC Surrog/Guard Advoc?: Yes Son Muniz MD Jan 01, 2017 13:29
[2017-01-01 16:00] VITALS: BP 148/70; PULSE 69; RESP 17; TEMP 98; O2SAT 99
--- NOTE | 2017-01-01 16:31 | PD.TTN ---
Present for Treatment Team Treatment Team Staff: Provider, Nurse, Psych Therapist, Clinical Specialist Patient Problems 1. Discharge planning 2. Medication compliance 3. Knowledge deficit 4. Lack of coping skills Progress Toward Goals Provider Input: Dr. Muniz's treatment team met to discuss patient's treatment plan, medication, and discharge plan. Patient is medication compliant, medication is going to be increased to help with the delusional content. Nurse Input: Patient's nurse Doroteo reports patient is doing well. Patient is medication compliant, no behavioral problems on unit. Psych Therapist Input: Patient is doing well on unit. Patient presents pleasant, cooperative but constricted. Patient makes good eye contact. Patient denies suicidal and homicidal ideation. Patient does not present internally stimulated but does present with delusional content stating her facility has blown up. Patient is medication complaint, eating and sleeping well. Patient will return to facility [facility] when she has stablized. Clinical Specialist Input: Per Group [employer] Samira Shanks patient attends selected group activities. Patient is social with peers. [facility] Contreras [facility] Jan 01, 2017 16:31
[2017-01-01] MEDS: LEVOFLOXACIN 250 MG TAB PO SCH (16:32)
[2017-01-01] MEDS: ASPIRIN EC 81 MG TABEC PO SCH (20:26)
[2017-01-01] MEDS: PRAVASTATIN SOD 40 MG TAB PO SCH (20:26)
[2017-01-01] MEDS: AMITRIPTYLINE HCL 25 MG TAB PO SCH (20:26)
[2017-01-02 05:30] VITALS: BP 154/73; PULSE 70; RESP 16; TEMP 97.6; O2SAT 99
[2017-01-02] MEDS: LEVOTHYROXINE SODIUM 150 MCG TAB PO SCH (05:43)
[2017-01-02] MEDS: aMILoride/HCTZ 5 MG/50 MG TAB PO SCH (09:36)
[2017-01-02] MEDS: QUEtiapine FUMARATE 25 MG TAB PO SCH ×2 (09:36→16:35)
[2017-01-02] MEDS: PROPRANOLOL HCL 20 MG TAB PO SCH (09:36)
[2017-01-02] MEDS: POLYETHYLENE GLYCOL 17 GM PKG PO SCH (09:38)
[2017-01-02] MEDS: ESTRADIOL 1 MG TAB PO SCH (09:44)
[2017-01-02] MEDS: CITALOPRAM HYDROBROMIDE 20 MG TAB PO SCH (09:44)
[2017-01-02] MEDS: CALCIUM CARBONATE 1.25 GM (CA 500 MG) TAB PO SCH (09:45)
[2017-01-02] MEDS: PANTOPRAZOLE SOD 20 MG DELAYED RELEASE TAB PO SCH (09:45)
[2017-01-02] MEDS: MULTIVITAMINS/MINERALS THERAPEUTIC TAB PO SCH (09:45)
--- NOTE | 2017-01-02 10:53 | HHI.PYPN ---
Subjective Remarks Patient seen in her room with floor staff, chart review, patient sitting in chair in doorway staring at doors at the end of the garcia showing some vigilance and anxiety as a something bad would be coming through the door. I also attempted to discuss with her possible placement back in her residence but she stated that it had been bombed and is "gone" patient showing some mild increased improvement in medication. For now continue treatment Review of Systems Except as stated in HPI: all other systems reviewed are Neg Objective Alert: Yes [place]: Person, Place, Date Mood: Calm Affect: Restricted Memory Intact: Comment (fair) Hallucinations: Auditory (internally stimulated) Delusions: Yes Delusion Type: Paranoid, Other (believes she is having surgery today) Suicidal: Ideation (denies) Homicidal: Ideation (denies) Insight/Judgment Poor Vitals/IOs Vital Signs Date Time Temp Pulse Resp B/P Pulse Ox O2 Delivery O2 Flow Rate FiO2 01/02/17 05:30 97.6 70 16 154/73 99 Assessment & Plan Problem List: (1) Other psychotic disorder not due to a substance or known physiological condition ICD Code: F28 Assessment & Plan Estimated LOS: days patient continue psychotic and delusional, some slight decrease in her mood. She showing slight improvement in her compliance. For now continue treatment Justification for Cont. Inpt. At this time patient will decompensate if placed in the lower level of care Discharge Planning To be determined Request HC Surrog/Guard Advoc?: Yes Son Muniz MD Jan 02, 2017 10:53
[2017-01-02 16:21] VITALS: BP 112/56; PULSE 60; RESP 16; TEMP 97.6; O2SAT 99
[2017-01-02] MEDS: LEVOFLOXACIN 250 MG TAB PO SCH (17:04)
[2017-01-02] MEDS: ASPIRIN EC 81 MG TABEC PO SCH (20:48)
[2017-01-02] MEDS: PRAVASTATIN SOD 40 MG TAB PO SCH (20:48)
[2017-01-02] MEDS: AMITRIPTYLINE HCL 25 MG TAB PO SCH (20:48)
[2017-01-03 05:33] VITALS: BP 143/63; PULSE 60; RESP 16; TEMP 97.2; O2SAT 97
[2017-01-03] MEDS: LEVOTHYROXINE SODIUM 150 MCG TAB PO SCH (05:43)
[2017-01-03] MEDS: PROPRANOLOL HCL 20 MG TAB PO SCH (09:00)
[2017-01-03] MEDS: QUEtiapine FUMARATE 25 MG TAB PO SCH ×2 (09:00→17:03)
[2017-01-03] MEDS: PANTOPRAZOLE SOD 20 MG DELAYED RELEASE TAB PO SCH (09:00)
[2017-01-03] MEDS: aMILoride/HCTZ 5 MG/50 MG TAB PO SCH (09:00)
[2017-01-03] MEDS: CITALOPRAM HYDROBROMIDE 20 MG TAB PO SCH (09:00)
[2017-01-03] MEDS: ESTRADIOL 1 MG TAB PO SCH (09:00)
[2017-01-03] MEDS: POLYETHYLENE GLYCOL 17 GM PKG PO SCH (09:00)
[2017-01-03] MEDS: MULTIVITAMINS/MINERALS THERAPEUTIC TAB PO SCH (09:00)
[2017-01-03] MEDS: CALCIUM CARBONATE 1.25 GM (CA 500 MG) TAB PO SCH (09:00)
--- NOTE | 2017-01-03 12:10 | PD.TTN ---
Present for Treatment Team Treatment Team Staff: Provider, Psych Therapist, Clinical Specialist Patient Problems 1. Discharge planning 2. Medication compliance 3. Knowledge deficit 4. Lack of coping skills Progress Toward Goals Provider Input: Dr. Muniz met to discuss treatment team, medication, and discharge plan. Dr. Muniz reports patient continues to present delusional and believes her residence has blown up. Dr. Welsh is requesting a family meeting with patient's son. A call was made to son but was not able to reach him but left message for a meeting for this Thursday, January 05, 2017 at 9:00am waiting to hear from son. Psych Therapist Input: Patient presents calm, pleasant, affect blunted. Patient is medication compliant. Patient makes good eye contact. Patient still presents with delusional content believing her facility has blown up. Dr. Muniz is requesting a family meeting with the son on Thursday, January 05, 2017 at 9:00am. Waiting on hearing from son. Patient is eating and sleeping well. Patient denies any suicidal or homicidal ideation. Clinical Specialist Input: Karyn CARL reports patient does not attend groups. Is found sitting in the garcia way. [facility] Jan 03, 2017 12:10
--- NOTE | 2017-01-03 14:06 | HHI.PYPN ---
Subjective Remarks Patient seen in her room. Continues to sit in doorway as if monitoring the hallway. Continues to be delusional related to her feelings that [facility] is blown up and is all gone. He should compliant medications. No other behavioral problem. Review of Systems Except as stated in HPI: all other systems reviewed are Neg Objective Alert: Yes [place]: Person, Place, Date Mood: Calm Affect: Restricted Memory Intact: Comment (fair) Hallucinations: Auditory (internally stimulated) Delusions: Yes Delusion Type: Paranoid, Other (believes she is having surgery today) Suicidal: Ideation (denies) Homicidal: Ideation (denies) Insight/Judgment Very poor Vitals/IOs Vital Signs Date Time Temp Pulse Resp B/P Pulse Ox O2 Delivery O2 Flow Rate FiO2 01/03/17 05:33 97.2 60 16 143/63 97 Intake and Output 01/02/17 01/02/17 01/03/17 08:00 16:00 00:00 Intake Total 720 ml Balance 720 ml Assessment & Plan Problem List: (1) Other psychotic disorder not due to a substance or known physiological condition ICD Code: F28 Assessment & Plan Estimated LOS: days patient remained psychotic and delusional, no significant insight, though no behavioral problems. Justification for Cont. Inpt. At this time patient will decompensate the placed in a lower level of care Discharge Planning To be determined Request HC Surrog/Guard Advoc?: Yes Son Muniz MD Jan 03, 2017 14:06
[2017-01-03] MEDS: LEVOFLOXACIN 250 MG TAB PO SCH (17:03)
[2017-01-03] MEDS: PRAVASTATIN SOD 40 MG TAB PO SCH (21:00)
[2017-01-03] MEDS: AMITRIPTYLINE HCL 25 MG TAB PO SCH (21:50)
[2017-01-03] MEDS: ASPIRIN EC 81 MG TABEC PO SCH (21:50)
[2017-01-03] MEDS: diphenhydrAMINE HCL 50 MG CAP PO PRN (21:53)
[2017-01-04] MEDS: LEVOTHYROXINE SODIUM 150 MCG TAB PO SCH (06:00)
[2017-01-04 06:16] VITALS: BP 152/77; PULSE 63; RESP 16; TEMP 98.1; O2SAT 95
[2017-01-04] MEDS: aMILoride/HCTZ 5 MG/50 MG TAB PO SCH (08:46)
[2017-01-04] MEDS: PANTOPRAZOLE SOD 20 MG DELAYED RELEASE TAB PO SCH (08:46)
[2017-01-04] MEDS: QUEtiapine FUMARATE 25 MG TAB PO SCH (08:47)
[2017-01-04] MEDS: CITALOPRAM HYDROBROMIDE 20 MG TAB PO SCH (08:47)
[2017-01-04] MEDS: PROPRANOLOL HCL 20 MG TAB PO SCH (08:47)
[2017-01-04] MEDS: MULTIVITAMINS/MINERALS THERAPEUTIC TAB PO SCH (08:47)
[2017-01-04] MEDS: POLYETHYLENE GLYCOL 17 GM PKG PO SCH (08:47)
[2017-01-04] MEDS: CALCIUM CARBONATE 1.25 GM (CA 500 MG) TAB PO SCH (08:47)
[2017-01-04] MEDS: ESTRADIOL 1 MG TAB PO SCH (08:47)
--- NOTE | 2017-01-04 14:59 | HHI.PYPN ---
Subjective Remarks Patient seen in her room with floor staff, continues to isolate, continues markedly vigilant. Patient continues also to feel that patient is Franki his blown up that there is nothing there. She also is stating that she talked with her niece and her sister and they want them all to live together in their own apartment patient patient's daughter and family members. Isolated met with patient's son and counselor Leah. Patient son states that that is all of fabrication. The patient's psychosis persists about people in the house monitoring them recording them. He also has patient's health care surrogate. We will discontinue the Seroquel start patient on Haldol 2 mg twice a day Review of Systems Except as stated in HPI: all other systems reviewed are Neg Objective Alert: Yes [place]: Person, Place, Date Mood: Calm Affect: Restricted Memory Intact: Comment (fair) Hallucinations: Auditory (internally stimulated) Delusions: Yes Delusion Type: Paranoid, Other (believes she is having surgery today) Suicidal: Ideation (denies) Homicidal: Ideation (denies) Insight/Judgment Very poor Vitals/IOs Vital Signs Date Time Temp Pulse Resp B/P Pulse Ox O2 Delivery O2 Flow Rate FiO2 01/04/17 06:16 98.1 63 16 152/77 95 Assessment & Plan Problem List: (1) 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 Did meet with patient's son. See medication adjustments above Justification for Cont. Inpt. At this time patient decompensate if placed in a lower level of care Discharge Planning To be determined Request HC Surrog/Guard Advoc?: Yes Son Muniz MD Jan 04, 2017 14:59
[2017-01-04] MEDS: HALOPERIDOL 2 MG TAB PO SCH ×2 (15:00→20:44)
[2017-01-04] MEDS: LEVOFLOXACIN 250 MG TAB PO SCH (15:26)
[2017-01-04 19:09] VITALS: BP 146/57; PULSE 64; RESP 17; TEMP 97.4; O2SAT 99
[2017-01-04] MEDS: ASPIRIN EC 81 MG TABEC PO SCH (20:44)
[2017-01-04] MEDS: PRAVASTATIN SOD 40 MG TAB PO SCH (20:44)
[2017-01-04] MEDS: AMITRIPTYLINE HCL 25 MG TAB PO SCH (20:44)
[2017-01-05] MEDS: LEVOTHYROXINE SODIUM 150 MCG TAB PO SCH (05:41)
[2017-01-05 05:56] VITALS: BP 140/83; PULSE 71; RESP 16; TEMP 97.7
[2017-01-05] MEDS: PROPRANOLOL HCL 20 MG TAB PO SCH (08:40)
[2017-01-05] MEDS: aMILoride/HCTZ 5 MG/50 MG TAB PO SCH (08:40)
[2017-01-05] MEDS: CITALOPRAM HYDROBROMIDE 20 MG TAB PO SCH (08:40)
[2017-01-05] MEDS: HALOPERIDOL 2 MG TAB PO SCH ×2 (08:40→21:15)
[2017-01-05] MEDS: PANTOPRAZOLE SOD 20 MG DELAYED RELEASE TAB PO SCH (08:40)
[2017-01-05] MEDS: CALCIUM CARBONATE 1.25 GM (CA 500 MG) TAB PO SCH (08:40)
[2017-01-05] MEDS: MULTIVITAMINS/MINERALS THERAPEUTIC TAB PO SCH (08:40)
[2017-01-05] MEDS: ESTRADIOL 1 MG TAB PO SCH (08:40)
[2017-01-05] MEDS: POLYETHYLENE GLYCOL 17 GM PKG PO SCH (08:41)
--- NOTE | 2017-01-05 13:00 | HHI.PYPN ---
Subjective Remarks Patient seen in her room sitting in wheelchair looking out the door down the garcia. Patient seen with nurse Blayne. Chart reviewed. Patient compliant medication. When I shared with patient my meeting with her son yesterday she shook her head and said "he is ". Patient remained adamant about that despite my sharing my conversation with her son yesterday. For now continue treatment no change Review of Systems Except as stated in HPI: all other systems reviewed are Neg Objective Alert: Yes [place]: Person, Place, Date Mood: Calm Affect: Restricted Memory Intact: Comment (fair) Hallucinations: Auditory (internally stimulated) Delusions: Yes Delusion Type: Paranoid, Other (believes she is having surgery today) Suicidal: Ideation (denies) Homicidal: Ideation (denies) Insight/Judgment Very poor Vitals/IOs Vital Signs Date Time Temp Pulse Resp B/P Pulse Ox O2 Delivery O2 Flow Rate FiO2 01/05/17 05:56 97.7 71 16 140/83 01/04/17 19:09 99 Intake and Output 01/04/17 01/04/17 01/05/17 08:00 16:00 00:00 Intake Total 440 ml 220 ml Balance 440 ml 220 ml Assessment & Plan Problem List: (1) Other psychotic disorder not due to a substance or known physiological condition ICD Code: F28 Assessment & Plan Estimated LOS: days patient continues delusional, with no significant insight. Patient compliant medications Justification for Cont. Inpt. For now continue treatment no change Discharge Planning To be determined Request HC Surrog/Guard Advoc?: Yes Son Muniz MD Jan 05, 2017 13:00
[2017-01-05] MEDS: LEVOFLOXACIN 250 MG TAB PO SCH (16:08)
[2017-01-05 18:23] VITALS: BP 114/65; PULSE 61; RESP 18; TEMP 98.1; O2SAT 98
[2017-01-05] MEDS: LORazepam 0.5 MG TAB PO PRN (18:29)
[2017-01-05] MEDS: AMITRIPTYLINE HCL 25 MG TAB PO SCH (21:13)
[2017-01-05] MEDS: ASPIRIN EC 81 MG TABEC PO SCH (21:14)
[2017-01-05] MEDS: PRAVASTATIN SOD 40 MG TAB PO SCH (21:14)
[2017-01-06 05:57] VITALS: BP 130/70; PULSE 69; RESP 18; TEMP 98.1; O2SAT 96
[2017-01-06] MEDS: LEVOTHYROXINE SODIUM 150 MCG TAB PO SCH (06:00)
[2017-01-06] MEDS: PANTOPRAZOLE SOD 20 MG DELAYED RELEASE TAB PO SCH (10:14)
[2017-01-06] MEDS: MULTIVITAMINS/MINERALS THERAPEUTIC TAB PO SCH (10:14)
[2017-01-06] MEDS: CALCIUM CARBONATE 1.25 GM (CA 500 MG) TAB PO SCH (10:14)
[2017-01-06] MEDS: aMILoride/HCTZ 5 MG/50 MG TAB PO SCH (10:14)
[2017-01-06] MEDS: HALOPERIDOL 2 MG TAB PO SCH ×2 (10:14→22:02)
[2017-01-06] MEDS: ESTRADIOL 1 MG TAB PO SCH (10:15)
[2017-01-06] MEDS: PROPRANOLOL HCL 20 MG TAB PO SCH (10:15)
[2017-01-06] MEDS: POLYETHYLENE GLYCOL 17 GM PKG PO SCH (10:15)
[2017-01-06] MEDS: CITALOPRAM HYDROBROMIDE 20 MG TAB PO SCH (10:16)
--- NOTE | 2017-01-06 13:04 | HHI.PYPN ---
Subjective Remarks Patient was seen and case discussed with nursing. Patient has a perseverant delusion she is going home today. Claims that her niece is here in the lobby which is not accurate appears grossly confused and disorganized. Alert and oriented 1. Compliant with her medications. Mood is "great, anxious." Denies suicidal ideation intent or plan Objective Alert: Yes [place]: Person, Place Mood: Anxious Affect: Restricted Memory Intact: Comment (fair) Hallucinations: Auditory (internally stimulated) Delusions: Yes Delusion Type: Paranoid, Other (believes she is having surgery today) Suicidal: Ideation (denies) Homicidal: Ideation (denies) Insight/Judgment Poor Vitals/IOs Vital Signs Date Time Temp Pulse Resp B/P Pulse Ox O2 Delivery O2 Flow Rate FiO2 01/06/17 05:57 98.1 69 18 130/70 96 Intake and Output 01/05/17 01/05/17 01/06/17 08:00 16:00 00:00 Intake Total 0 ml Balance 0 ml Assessment & Plan Problem List: (1) 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 Inpt. Patient will decompensate in a less restrictive setting Request HC Surrog/Guard Advoc?: Yes Phan Cavazos DO Jan 06, 2017 13:04
[2017-01-06] MEDS: LEVOFLOXACIN 250 MG TAB PO SCH (17:45)
[2017-01-06 18:00] VITALS: BP 127/67; PULSE 58; RESP 16; TEMP 97.2; O2SAT 97
[2017-01-06] MEDS: AMITRIPTYLINE HCL 25 MG TAB PO SCH (22:02)
[2017-01-06] MEDS: PRAVASTATIN SOD 40 MG TAB PO SCH (22:02)
[2017-01-06] MEDS: ASPIRIN EC 81 MG TABEC PO SCH (22:02)
[2017-01-06] MEDS: ACETAMINOPHEN 325 MG TAB PO PRN (22:03)
[2017-01-07] MEDS: LEVOTHYROXINE SODIUM 150 MCG TAB PO SCH (06:05)
[2017-01-07 06:25] VITALS: BP 135/69; PULSE 59; RESP 15; TEMP 96.7; O2SAT 95
[2017-01-07] MEDS: POLYETHYLENE GLYCOL 17 GM PKG PO SCH (09:11)
[2017-01-07] MEDS: CALCIUM CARBONATE 1.25 GM (CA 500 MG) TAB PO SCH (09:11)
[2017-01-07] MEDS: aMILoride/HCTZ 5 MG/50 MG TAB PO SCH (09:12)
[2017-01-07] MEDS: ESTRADIOL 1 MG TAB PO SCH (09:12)
[2017-01-07] MEDS: HALOPERIDOL 2 MG TAB PO SCH ×2 (09:12→20:34)
[2017-01-07] MEDS: PANTOPRAZOLE SOD 20 MG DELAYED RELEASE TAB PO SCH (09:12)
[2017-01-07] MEDS: MULTIVITAMINS/MINERALS THERAPEUTIC TAB PO SCH (09:12)
[2017-01-07] MEDS: CITALOPRAM HYDROBROMIDE 20 MG TAB PO SCH (09:12)
[2017-01-07] MEDS: PROPRANOLOL HCL 20 MG TAB PO SCH (09:12)
--- NOTE | 2017-01-07 13:12 | HHI.PYPN ---
Subjective Remarks Patient was seen and case discussed with nursing. Patient is less fixated on going home today. She remains seclusive to self. Alert and oriented 3. Compliant with medications and behaving well on the unit. Objective Alert: Yes [place]: Person, Place Mood: Calm Affect: Restricted Memory Intact: Comment (fair) Hallucinations: Auditory (denies) Delusions: Yes Delusion Type: Paranoid, Other (she is going home) Suicidal: Ideation (denies) Homicidal: Ideation (denies) Insight/Judgment Poor Vitals/IOs Vital Signs Date Time Temp Pulse Resp B/P Pulse Ox O2 Delivery O2 Flow Rate FiO2 01/07/17 06:25 96.7 59 15 135/69 95 Intake and Output 01/06/17 01/06/17 01/07/17 08:00 16:00 00:00 Intake Total 0 ml 720 ml 720 ml Balance 0 ml 720 ml 720 ml Assessment & Plan Problem List: (1) 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 Inpt. Patient will decompensate in a less restrictive setting Request HC Surrog/Guard Advoc?: Yes Phan Cavazos DO Jan 07, 2017 13:12
--- NOTE | 2017-01-07 14:51 | HHI.PR ---
Subjective Remarks Ambulating in room No fever No urinary symptoms No chest pain No shortness of breath Chronic leg edema Objective Objective Results - Vital Signs Date Time Temp Pulse Resp B/P Pulse Ox O2 Delivery O2 Flow Rate FiO2 01/07/17 06:25 96.7 59 15 135/69 95 01/06/17 23:03 20 01/06/17 18:00 97.2 58 16 127/67 97 I/O 01/06/17 01/06/17 01/06/17 01/07/17 01/07/17 01/07/17 07:00 15:00 23:00 07:00 15:00 23:00 Intake Total 0 ml 720 ml 720 ml 1200 ml Balance 0 ml 720 ml 720 ml 1200 ml Intake Oral 0 ml 720 ml 720 ml 1200 ml # Voids 1 2 2 1 2 # Bowel Movements 0 ROS General: Other (12 point review of systems completed, unreliable) Physical Exam Physical Exam GENERAL: This is a well-nourished, well-developed patient, in no apparent distress. SKIN: No rashes, ecchymoses or lesions. Cool and dry. HEAD: Atraumatic. Normocephalic. No temporal or scalp tenderness. EYES: Pupils equal round and reactive. Extraocular motions intact. No scleral icterus. No injection or drainage. ENT: Nose without bleeding, purulent drainage or septal hematoma. Throat without erythema, tonsillar hypertrophy or exudate. Uvula midline. Airway patent. NECK: Trachea midline. No JVD or lymphadenopathy. Supple, nontender, no meningeal signs. CARDIOVASCULAR: Regular rate and rhythm without murmurs, gallops, or rubs. RESPIRATORY: Clear to auscultation. Breath sounds equal bilaterally. No wheezes , rales, or rhonchi. GASTROINTESTINAL: Abdomen soft, non-tender, nondistended. No hepato-splenomegaly , or palpable masses. No guarding. MUSCULOSKELETAL: Extremities without clubbing, cyanosis. Trace ankle edema, pedal pulses 2+ bilaterally. No joint tenderness, effusion, or edema noted. No calf tenderness. Negative Homans sign bilaterally. NEUROLOGICAL: Awake, alert oriented 3. No focal deficits. Urinary Catheter: No Vascular Central Line Catheter: No A/P Diagnosis: (1) Auditory hallucination (2) Hyperlipidemia (3) Tremor (4) HTN (hypertension) (5) Hypothyroid (6) Psychotic disorder (7) Hx TIA/stroke w/o resid Assessment and Plan 81-year-old elderly female with history hypertension, hyperlipidemia TIA. Brought into emergency room under Noel act for auditory hallucinations. Patient now admitted to psychiatric unit. Auditory hallucinations, psychosis -Continue with psychiatric care -Patient also been followed by neurology, for possible memory deficit and auditory hallucinations. Brain MRI has been done which does not show acute findings. -Continue with Celexa, amitriptyline, Seroquel Recent episode of chest pain, ruled out for acute coronary syndrome. Patient remains chest pain-free Continue with aspirin 81 mg by mouth daily History of TIA Continue with aspirin Hypothyroid -Continue with home medication Tremors Continue Inderal Hyperlipidemia Continue statins Hypertension, stable continue home medications Leg edema -TEDS UTI + ecoli -on Levaquin since 12/22, will dc -no urinary symptoms, no fever will sign off call if any questions/medical issues arise Discussed with RN Discussed with patient Discussed with Dr. Sapp This patient was seen by myself and Dr. Sapp, this note is written on his behalf Problem Qualifiers (1) Hyperlipidemia: Qualified Code: E78.5 - Hyperlipidemia, unspecified hyperlipidemia type (2) HTN (hypertension): Qualified Code: I10 - Essential hypertension (3) Hypothyroid: Qualified Code: E03.9 - Hypothyroidism, unspecified type (4) Psychotic disorder: Qualified Code: F29 - Psychosis, unspecified psychosis type Laura Jean-Baptiste Jan 07, 2017 14:51
[2017-01-07 19:58] VITALS: BP 140/72; PULSE 62; RESP 17; TEMP 97.3
[2017-01-07] MEDS: PRAVASTATIN SOD 40 MG TAB PO SCH (20:34)
[2017-01-07] MEDS: ASPIRIN EC 81 MG TABEC PO SCH (20:34)
[2017-01-07] MEDS: AMITRIPTYLINE HCL 25 MG TAB PO SCH (20:34)
[2017-01-08 05:46] VITALS: BP 138/64; PULSE 59; RESP 16; TEMP 98.1; O2SAT 97
[2017-01-08] MEDS: LEVOTHYROXINE SODIUM 150 MCG TAB PO SCH (06:19)
[2017-01-08] MEDS: PROPRANOLOL HCL 20 MG TAB PO SCH (09:00)
[2017-01-08] MEDS: POLYETHYLENE GLYCOL 17 GM PKG PO SCH (09:00)
[2017-01-08] MEDS: CITALOPRAM HYDROBROMIDE 20 MG TAB PO SCH (09:14)
[2017-01-08] MEDS: CALCIUM CARBONATE 1.25 GM (CA 500 MG) TAB PO SCH (09:14)
[2017-01-08] MEDS: MULTIVITAMINS/MINERALS THERAPEUTIC TAB PO SCH (09:14)
[2017-01-08] MEDS: PANTOPRAZOLE SOD 20 MG DELAYED RELEASE TAB PO SCH (09:14)
[2017-01-08] MEDS: aMILoride/HCTZ 5 MG/50 MG TAB PO SCH (09:14)
[2017-01-08] MEDS: HALOPERIDOL 2 MG TAB PO SCH ×2 (09:14→17:58)
[2017-01-08] MEDS: ESTRADIOL 1 MG TAB PO SCH (09:14)
--- NOTE | 2017-01-08 11:20 | PD.TTN ---
Present for Treatment Team Treatment Team Staff: Provider (Dr. Muniz), Psych Therapist (Molly Rushing), Other Clinician (rec. Samira therapy) Patient Problems 1. Discharge planning 2. Medication compliance 3. Knowledge deficit 4. Lack of coping skills Progress Toward Goals Provider Input: Dr. Muniz reported he had a family meeting with patient's son who is quite ill himself. According to Dr. Muniz the patient's son reported he has been waiting on the family meeting outcome before talking to [facility] regarding the possibility of patient relocating to a memory care unit. Dr. Muniz additionally reported that this counselor should send patient's packet to [facility] for their admissions staff to review. According to Dr. Muniz the patient's disabled adult daughter has been staying with the son during the patient's admission. There is some question regarding if the daughter and patient can continue to reside together at [facility], especially if patient requires a memory care unit following discharge. Psych Therapist Input: Counselor reported the patient remains paranoid and delusional, isolating to her room, and guarded on approach. Other Clinican Input: Samira, margie. therapist, reported the patient refuses to attend groups. Molly Rushing RMI Jan 08, 2017 11:20
--- NOTE | 2017-01-08 13:23 | HHI.PYPN ---
Subjective Remarks Patient seen in her room with nurse Benz, chart review, patient compliant medication. Patient chest the 2500 because of her resistance to return to room on 2600. Patient continues to remain delusional psychotic though no behavioral problems except for her isolation will increase Haldol 2 mg by mouth 3 times a day Review of Systems Except as stated in HPI: all other systems reviewed are Neg Objective Alert: Yes [place]: Person, Place Mood: Calm Affect: Restricted Memory Intact: Comment (fair) Hallucinations: Auditory (denies) Delusions: Yes Delusion Type: Paranoid, Other (she is going home) Suicidal: Ideation (denies) Homicidal: Ideation (denies) Insight/Judgment Very poor Vitals/IOs Vital Signs Date Time Temp Pulse Resp B/P Pulse Ox O2 Delivery O2 Flow Rate FiO2 01/08/17 05:46 98.1 59 16 138/64 97 Intake and Output 01/07/17 01/07/17 01/08/17 08:00 16:00 00:00 Intake Total 1200 ml 720 ml Balance 1200 ml 720 ml Assessment & Plan Problem List: (1) 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 Inpt. At this time patient will decompensate placed in the lower level of care Discharge Planning To be determined Request HC Surrog/Guard Advoc?: Yes Son Muniz MD Jan 08, 2017 13:23
[2017-01-08 17:57] VITALS: BP 140/72; PULSE 85; RESP 16; TEMP 98.2; O2SAT 16
[2017-01-08 19:08] VITALS: O2SAT 97
[2017-01-08] MEDS: ASPIRIN EC 81 MG TABEC PO SCH (20:59)
[2017-01-08] MEDS: PRAVASTATIN SOD 40 MG TAB PO SCH (20:59)
[2017-01-08] MEDS: AMITRIPTYLINE HCL 25 MG TAB PO SCH (20:59)
[2017-01-09] MEDS: LEVOTHYROXINE SODIUM 150 MCG TAB PO SCH (06:03)
[2017-01-09 06:08] VITALS: BP 160/79; PULSE 73; RESP 17; TEMP 97.9; O2SAT 98
[2017-01-09] MEDS: ESTRADIOL 1 MG TAB PO SCH (08:42)
[2017-01-09] MEDS: CALCIUM CARBONATE 1.25 GM (CA 500 MG) TAB PO SCH (08:42)
[2017-01-09] MEDS: CITALOPRAM HYDROBROMIDE 20 MG TAB PO SCH (08:42)
[2017-01-09] MEDS: aMILoride/HCTZ 5 MG/50 MG TAB PO SCH (08:42)
[2017-01-09] MEDS: MULTIVITAMINS/MINERALS THERAPEUTIC TAB PO SCH (08:42)
[2017-01-09] MEDS: PANTOPRAZOLE SOD 20 MG DELAYED RELEASE TAB PO SCH (08:43)
[2017-01-09] MEDS: PROPRANOLOL HCL 20 MG TAB PO SCH (08:43)
[2017-01-09] MEDS: HALOPERIDOL 2 MG TAB PO SCH ×3 (08:43→17:40)
[2017-01-09] MEDS: POLYETHYLENE GLYCOL 17 GM PKG PO SCH (09:00)
--- NOTE | 2017-01-09 14:22 | HHI.PYPN ---
Subjective Remarks Patient seen in day room with nurse Marie, chart reviewed, patient compliant medication. Patient continues calm though continues also delusional still stating that her son is she only has her daughter. And that her other facility has exploded and burned to the ground. For now continue treatment no change Review of Systems Except as stated in HPI: all other systems reviewed are Neg Objective Alert: Yes [place]: Person, Place Mood: Calm Affect: Restricted Memory Intact: Comment (fair) Hallucinations: Auditory (denies) Delusions: Yes Delusion Type: Paranoid, Other (she is going home) Suicidal: Ideation (denies) Homicidal: Ideation (denies) Insight/Judgment Very poor Vitals/IOs Vital Signs Date Time Temp Pulse Resp B/P Pulse Ox O2 Delivery O2 Flow Rate FiO2 01/09/17 06:08 97.9 73 17 160/79 98 Intake and Output 01/08/17 01/08/17 01/09/17 08:00 16:00 00:00 Intake Total 240 ml 960 ml Balance 240 ml 960 ml Assessment & Plan Problem List: (1) Other psychotic disorder not due to a substance or known physiological condition ICD Code: F28 Assessment & Plan Estimated LOS: days patient continues delusional and psychotic, with no insight. Compliant medication. Justification for Cont. Inpt. At this time patient will decompensate in place to the lower level of care Discharge Planning To be determined Request HC Surrog/Guard Advoc?: Yes Son Muniz MD Jan 09, 2017 14:22
[2017-01-09 17:18] VITALS: BP 131/92; PULSE 64; RESP 16; TEMP 97.3; O2SAT 97
[2017-01-09] MEDS: PRAVASTATIN SOD 40 MG TAB PO SCH (21:00)
[2017-01-09] MEDS: AMITRIPTYLINE HCL 25 MG TAB PO SCH (21:00)
[2017-01-09] MEDS: ASPIRIN EC 81 MG TABEC PO SCH (21:00)
[2017-01-10 05:14] VITALS: BP 188/72; PULSE 61; RESP 17; TEMP 96.8; O2SAT 98
[2017-01-10] MEDS: LEVOTHYROXINE SODIUM 150 MCG TAB PO SCH (06:00)
[2017-01-10] MEDS: CALCIUM CARBONATE 1.25 GM (CA 500 MG) TAB PO SCH (08:52)
[2017-01-10] MEDS: MULTIVITAMINS/MINERALS THERAPEUTIC TAB PO SCH (08:52)
[2017-01-10] MEDS: HALOPERIDOL 2 MG TAB PO SCH ×3 (08:52→17:23)
[2017-01-10] MEDS: ESTRADIOL 1 MG TAB PO SCH (08:52)
[2017-01-10] MEDS: POLYETHYLENE GLYCOL 17 GM PKG PO SCH ×2 (08:53→08:54)
[2017-01-10] MEDS: PROPRANOLOL HCL 20 MG TAB PO SCH (08:53)
[2017-01-10] MEDS: CITALOPRAM HYDROBROMIDE 20 MG TAB PO SCH (08:53)
[2017-01-10] MEDS: PANTOPRAZOLE SOD 20 MG DELAYED RELEASE TAB PO SCH (08:53)
[2017-01-10] MEDS: aMILoride/HCTZ 5 MG/50 MG TAB PO SCH (08:53)
[2017-01-10 09:19] VITALS: BP 138/64; PULSE 63; RESP 16
--- NOTE | 2017-01-10 15:49 | HHI.PYPN ---
Subjective Remarks Patient seen in her room with nurse Elyse, chart review, patient no behavioral problems who still was delusional and confused, continues to feel that the place where she was living is been bombed that her son is still that. For now continue treatment Review of Systems Except as stated in HPI: all other systems reviewed are Neg Objective Alert: Yes [place]: Person, Place Mood: Calm Affect: Restricted Memory Intact: Comment (fair) Hallucinations: Auditory (denies) Delusions: Yes Delusion Type: Paranoid, Other (she is going home) Suicidal: Ideation (denies) Homicidal: Ideation (denies) Insight/Judgment Very poor Vitals/IOs Vital Signs Date Time Temp Pulse Resp B/P Pulse Ox O2 Delivery O2 Flow Rate FiO2 01/10/17 09:19 63 16 138/64 01/10/17 05:14 96.8 98 Intake and Output 01/09/17 01/09/17 01/10/17 08:00 16:00 00:00 Intake Total 480 ml Balance 480 ml Assessment & Plan Problem List: (1) 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 Inpt. At this time patient will decompensate if placed in the lower level of care Discharge Planning To be determined Request HC Surrog/Guard Advoc?: Yes Son Muniz MD Jan 10, 2017 15:49
[2017-01-10 18:00] VITALS: BP 138/79; PULSE 68; RESP 17; TEMP 96.8; O2SAT 98
[2017-01-10] MEDS: PRAVASTATIN SOD 40 MG TAB PO SCH (21:26)
[2017-01-10] MEDS: AMITRIPTYLINE HCL 25 MG TAB PO SCH (21:26)
[2017-01-10] MEDS: ASPIRIN EC 81 MG TABEC PO SCH (21:27)
[2017-01-11 05:39] VITALS: BP 141/61; PULSE 56; RESP 15; TEMP 98.3; O2SAT 98
[2017-01-11] MEDS: LEVOTHYROXINE SODIUM 150 MCG TAB PO SCH (06:15)
[2017-01-11] MEDS: CALCIUM CARBONATE 1.25 GM (CA 500 MG) TAB PO SCH (08:31)
[2017-01-11] MEDS: aMILoride/HCTZ 5 MG/50 MG TAB PO SCH (08:31)
[2017-01-11] MEDS: CITALOPRAM HYDROBROMIDE 20 MG TAB PO SCH (08:31)
[2017-01-11] MEDS: MULTIVITAMINS/MINERALS THERAPEUTIC TAB PO SCH (08:31)
[2017-01-11] MEDS: HALOPERIDOL 2 MG TAB PO SCH ×3 (08:31→17:46)
[2017-01-11] MEDS: PANTOPRAZOLE SOD 20 MG DELAYED RELEASE TAB PO SCH (08:31)
[2017-01-11] MEDS: ESTRADIOL 1 MG TAB PO SCH (08:32)
[2017-01-11] MEDS: PROPRANOLOL HCL 20 MG TAB PO SCH (08:32)
[2017-01-11] MEDS: POLYETHYLENE GLYCOL 17 GM PKG PO SCH (08:55)
--- NOTE | 2017-01-11 15:18 | HHI.PYPN ---
Subjective Remarks Patient seen in day room with nurse Maisha. Patient seen, and there. Staff was stated they have talked with patient's son wishes a visitor this weekend I agree this would be therapeutically appropriate. Attempted to mention this to her she became upset and angry stating " how can you do that to me when I know he is ." For now continue treatment, patient is compliant with medication Review of Systems Except as stated in HPI: all other systems reviewed are Neg Objective Alert: Yes [place]: Person, Place Mood: Calm Affect: Restricted Memory Intact: Comment (fair) Hallucinations: Auditory (denies) Delusions: Yes Delusion Type: Paranoid, Other (she is going home) Suicidal: Ideation (denies) Homicidal: Ideation (denies) Insight/Judgment Very poor Vitals/IOs Vital Signs Date Time Temp Pulse Resp B/P Pulse Ox O2 Delivery O2 Flow Rate FiO2 01/11/17 05:39 98.3 56 15 141/61 98 Intake and Output 01/10/17 01/10/17 01/11/17 08:00 16:00 00:00 Intake Total 120 ml 480 ml 720 ml Balance 120 ml 480 ml 720 ml Assessment & Plan Problem List: (1) 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 Compliant medication. But no significant behavioral problems. Justification for Cont. Inpt. At this time patient will decompensate then placed in a lower level of care Discharge Planning To be determined Request HC Surrog/Guard Advoc?: Yes Son Muniz MD Jan 11, 2017 15:18
[2017-01-11 18:01] VITALS: BP 102/59; PULSE 61; RESP 17; TEMP 99.1; O2SAT 97
[2017-01-11] MEDS: PRAVASTATIN SOD 40 MG TAB PO SCH (21:58)
[2017-01-11] MEDS: AMITRIPTYLINE HCL 25 MG TAB PO SCH (21:58)
[2017-01-11] MEDS: ASPIRIN EC 81 MG TABEC PO SCH (21:58)
[2017-01-12 06:13] VITALS: BP 109/59; PULSE 56; RESP 16; TEMP 97.9; O2SAT 97
[2017-01-12] MEDS: LEVOTHYROXINE SODIUM 150 MCG TAB PO SCH (06:30)
[2017-01-12] MEDS: MULTIVITAMINS/MINERALS THERAPEUTIC TAB PO SCH (10:27)
[2017-01-12] MEDS: aMILoride/HCTZ 5 MG/50 MG TAB PO SCH (10:27)
[2017-01-12] MEDS: ESTRADIOL 1 MG TAB PO SCH (10:28)
[2017-01-12] MEDS: PROPRANOLOL HCL 20 MG TAB PO SCH (10:28)
[2017-01-12] MEDS: HALOPERIDOL 2 MG TAB PO SCH ×3 (10:29→18:08)
[2017-01-12] MEDS: CALCIUM CARBONATE 1.25 GM (CA 500 MG) TAB PO SCH (10:29)
[2017-01-12] MEDS: PANTOPRAZOLE SOD 20 MG DELAYED RELEASE TAB PO SCH (10:29)
[2017-01-12] MEDS: CITALOPRAM HYDROBROMIDE 20 MG TAB PO SCH (10:29)
[2017-01-12] MEDS: POLYETHYLENE GLYCOL 17 GM PKG PO SCH (10:29)
--- NOTE | 2017-01-12 14:17 | HHI.PYPN ---
Subjective Remarks Patient seen in day room with nurse Chantale, chart review, patient compliant medications. And calm pleasant, continue somewhat vigilant. Continues of the delusions related to her family to believe that her son is . For now continue treatment Review of Systems Except as stated in HPI: all other systems reviewed are Neg Objective Alert: Yes [place]: Person, Place Mood: Calm Affect: Restricted Memory Intact: Comment (fair) Hallucinations: Auditory (denies) Delusions: Yes Delusion Type: Paranoid, Other (she is going home) Suicidal: Ideation (denies) Homicidal: Ideation (denies) Insight/Judgment Poor Vitals/IOs Vital Signs Date Time Temp Pulse Resp B/P Pulse Ox O2 Delivery O2 Flow Rate FiO2 01/12/17 06:13 97.9 56 16 109/59 97 Intake and Output 01/11/17 01/11/17 01/12/17 08:00 16:00 00:00 Intake Total 120 ml 600 ml Balance 120 ml 600 ml Assessment & Plan Problem List: (1) Other psychotic disorder not due to a substance or known physiological condition ICD Code: F28 Assessment & Plan Estimated LOS: days patient continues delusional, but no behavioral problems, compliant medications. For now continue treatment. It will be interesting to see patient's response if son is able to visit with her tomorrow Justification for Cont. Inpt. At this time patient will decompensate if placed in the lower level of care Discharge Planning To be determined Request HC Surrog/Guard Advoc?: Yes Son Muniz MD Jan 12, 2017 14:17
[2017-01-12 18:02] VITALS: BP 107/55; PULSE 64; RESP 16; TEMP 96.8; O2SAT 96
[2017-01-12] MEDS: PRAVASTATIN SOD 40 MG TAB PO SCH (21:38)
[2017-01-12] MEDS: ASPIRIN EC 81 MG TABEC PO SCH (21:38)
[2017-01-12] MEDS: AMITRIPTYLINE HCL 25 MG TAB PO SCH (21:38)
[2017-01-13 05:52] VITALS: BP 141/63; PULSE 56; RESP 16; TEMP 97.9; O2SAT 96
[2017-01-13] MEDS: LEVOTHYROXINE SODIUM 150 MCG TAB PO SCH (06:38)
[2017-01-13] MEDS: MULTIVITAMINS/MINERALS THERAPEUTIC TAB PO SCH (08:57)
[2017-01-13] MEDS: HALOPERIDOL 2 MG TAB PO SCH ×3 (08:58→18:00)
[2017-01-13] MEDS: aMILoride/HCTZ 5 MG/50 MG TAB PO SCH (08:58)
[2017-01-13] MEDS: PROPRANOLOL HCL 20 MG TAB PO SCH (08:58)
[2017-01-13] MEDS: CITALOPRAM HYDROBROMIDE 20 MG TAB PO SCH (08:58)
[2017-01-13] MEDS: PANTOPRAZOLE SOD 20 MG DELAYED RELEASE TAB PO SCH (08:58)
[2017-01-13] MEDS: ESTRADIOL 1 MG TAB PO SCH (08:58)
[2017-01-13] MEDS: CALCIUM CARBONATE 1.25 GM (CA 500 MG) TAB PO SCH (08:58)
[2017-01-13] MEDS: POLYETHYLENE GLYCOL 17 GM PKG PO SCH (09:00)
--- NOTE | 2017-01-13 13:15 | HHI.PYPN ---
Subjective Remarks Patient was seen and case discussed with nursing. Patient remains with a fixed delusion that her son is despite being told he is going to visit today. Pleasant and cooperative with exam. Eating and sleeping well per nursing. Objective Alert: Yes [place]: Person, Place Mood: Calm Affect: Restricted Memory Intact: Comment (fair) Hallucinations: Auditory (denies) Delusions: Yes Delusion Type: Paranoid (fixed delusion her son is ), Other (she is going home) Suicidal: Ideation (denies) Homicidal: Ideation (denies) Insight/Judgment Poor Vitals/IOs Vital Signs Date Time Temp Pulse Resp B/P Pulse Ox O2 Delivery O2 Flow Rate FiO2 01/13/17 05:52 97.9 56 16 141/63 96 Intake and Output 01/12/17 01/12/17 01/13/17 08:00 16:00 00:00 Intake Total 240 ml 720 ml 720 ml Balance 240 ml 720 ml 720 ml Assessment & Plan Problem List: (1) 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 Inpt. Patient will decompensate in a less restrictive setting Request HC Surrog/Guard Advoc?: Yes Phan Cavazos DO Jan 13, 2017 13:15
[2017-01-13 18:03] VITALS: BP 129/57; PULSE 54; RESP 17; TEMP 97.6; O2SAT 97
[2017-01-13] MEDS: PRAVASTATIN SOD 40 MG TAB PO SCH (22:14)
[2017-01-13] MEDS: AMITRIPTYLINE HCL 25 MG TAB PO SCH (22:14)
[2017-01-13] MEDS: ASPIRIN EC 81 MG TABEC PO SCH (22:14)
[2017-01-14] MEDS: LEVOTHYROXINE SODIUM 150 MCG TAB PO SCH (06:15)
[2017-01-14 06:38] VITALS: BP 139/63; PULSE 57; RESP 14; TEMP 96.9; O2SAT 93
[2017-01-14] MEDS: ESTRADIOL 1 MG TAB PO SCH (08:26)
[2017-01-14] MEDS: CALCIUM CARBONATE 1.25 GM (CA 500 MG) TAB PO SCH (08:26)
[2017-01-14] MEDS: CITALOPRAM HYDROBROMIDE 20 MG TAB PO SCH (08:26)
[2017-01-14] MEDS: MULTIVITAMINS/MINERALS THERAPEUTIC TAB PO SCH (08:26)
[2017-01-14] MEDS: PROPRANOLOL HCL 20 MG TAB PO SCH (08:26)
[2017-01-14] MEDS: HALOPERIDOL 2 MG TAB PO SCH ×3 (08:26→16:56)
[2017-01-14] MEDS: aMILoride/HCTZ 5 MG/50 MG TAB PO SCH (08:26)
[2017-01-14] MEDS: PANTOPRAZOLE SOD 20 MG DELAYED RELEASE TAB PO SCH (08:26)
[2017-01-14] MEDS: POLYETHYLENE GLYCOL 17 GM PKG PO SCH (08:26)
--- NOTE | 2017-01-14 13:14 | HHI.PYPN ---
Subjective Remarks Patient was seen and case discussed with nursing. Patient reunited with her son last evening, son that she thought was passed. She does remember this event today but says that she never thought that he was gone. No need delusions elicited today. She is oriented 3 on questioning, Objective Alert: Yes [place]: Person, Place, Date Mood: Calm Affect: Euthymic Memory Intact: Comment (fair) Hallucinations: Auditory (denies) Delusions: Yes Delusion Type: Paranoid (not elicited today) Suicidal: Ideation (denies) Homicidal: Ideation (denies) Insight/Judgment Poor Vitals/IOs Vital Signs Date Time Temp Pulse Resp B/P Pulse Ox O2 Delivery O2 Flow Rate FiO2 01/14/17 06:38 96.9 57 14 139/63 93 Intake and Output 01/13/17 01/13/17 01/14/17 08:00 16:00 00:00 Intake Total 240 ml 600 ml Balance 240 ml 600 ml Assessment & Plan Problem List: (1) 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 Inpt. Pt would decompensate in a less restrictive setting Request HC Surrog/Guard Advoc?: Yes Phan Cavazos DO Jan 14, 2017 13:14
[2017-01-14 18:00] VITALS: BP 129/59; PULSE 55; RESP 16; TEMP 97.8; O2SAT 97
[2017-01-14] MEDS: PRAVASTATIN SOD 40 MG TAB PO SCH (21:00)
[2017-01-14] MEDS: AMITRIPTYLINE HCL 25 MG TAB PO SCH (21:00)
[2017-01-14] MEDS: ASPIRIN EC 81 MG TABEC PO SCH (21:00)
[2017-01-15] MEDS: LEVOTHYROXINE SODIUM 150 MCG TAB PO SCH (05:49)
[2017-01-15 06:13] VITALS: BP 172/74; PULSE 58; RESP 17; TEMP 98.4; O2SAT 93
[2017-01-15] MEDS: CALCIUM CARBONATE 1.25 GM (CA 500 MG) TAB PO SCH (08:51)
[2017-01-15] MEDS: HALOPERIDOL 2 MG TAB PO SCH ×3 (08:51→17:16)
[2017-01-15] MEDS: MULTIVITAMINS/MINERALS THERAPEUTIC TAB PO SCH (08:51)
[2017-01-15] MEDS: ESTRADIOL 1 MG TAB PO SCH (08:51)
[2017-01-15] MEDS: PANTOPRAZOLE SOD 20 MG DELAYED RELEASE TAB PO SCH (08:51)
[2017-01-15] MEDS: PROPRANOLOL HCL 20 MG TAB PO SCH (08:52)
[2017-01-15] MEDS: CITALOPRAM HYDROBROMIDE 20 MG TAB PO SCH (08:52)
[2017-01-15] MEDS: aMILoride/HCTZ 5 MG/50 MG TAB PO SCH (08:52)
[2017-01-15] MEDS: POLYETHYLENE GLYCOL 17 GM PKG PO SCH (08:52)
--- NOTE | 2017-01-15 10:47 | PD.TTN ---
Present for Treatment Team Treatment Team Staff: Provider (Dr. Muniz), Nurse (Ori), Psych Therapist ( Molly Rushing), Clinical Specialist (Lacie), Other Clinician Patient Problems 1. Discharge planning 2. Medication compliance 3. Knowledge deficit 4. Lack of coping skills Progress Toward Goals Provider Input: Dr. Muniz reported the patient remains complinat with treatment and medications and requested the therapist contact [facility] regarding patient's ability to return to their facility and possible move into a memory care unit with her daughter. Nurse Input: Nurse Ori reported the patient appears to be at her baseline and remains medication compliant, delusional regarding her home blowing up, and her son being . Psych Therapist Input: Counselor reported the patient remains delusional in regards to her apartment blowing up, isolative, and compliant with medications. Counselor will contact [facility] in an effort to see if patient may return there and move into a memory care unit. Occupational Therapist Input: Lacie reported the patient does not attend recreational activities. Documentation Scribe: JOSE LUIS Jacome Date Resolved: Jan 15, 2017 Molly Rushing Jan 15, 2017 10:47
--- NOTE | 2017-01-15 16:44 | HHI.PYPN ---
Subjective Remarks Patient seen today in day room with medical student Darrin, chart reviewed, patient compliant medication. Patient calm pleasant patient did visit with her son over the weekend. She had a very [place] and smile on her face when she referred to him and she acknowledges that he is alive did not show any delusional thoughts about situation. For now continue treatment Review of Systems Except as stated in HPI: all other systems reviewed are Neg Objective Alert: Yes [place]: Person, Place, Date Mood: Calm Affect: Euthymic Memory Intact: Comment (fair) Hallucinations: Auditory (denies) Delusions: Yes Delusion Type: Paranoid (not elicited today) Suicidal: Ideation (denies) Homicidal: Ideation (denies) Insight/Judgment Poor Vitals/IOs Vital Signs Date Time Temp Pulse Resp B/P Pulse Ox O2 Delivery O2 Flow Rate FiO2 01/15/17 06:13 98.4 58 17 172/74 93 Intake and Output 01/14/17 01/14/17 01/15/17 08:00 16:00 00:00 Intake Total 120 ml 2040 ml 820 ml Output Total 2 ml Balance 120 ml 2038 ml 820 ml Assessment & Plan Problem List: (1) Other psychotic disorder not due to a substance or known physiological condition ICD Code: F28 Assessment & Plan Estimated LOS: days patient continues delusional, though softening. Perhaps the delusion relating to her son's has now gone by seeing him over the weekend Justification for Cont. Inpt. At this time patient will decompensate if placed in a lower level of care Discharge Planning To be determined Request HC Surrog/Guard Advoc?: Yes Son Muniz MD Jan 15, 2017 16:44
[2017-01-15 19:00] VITALS: BP 140/64; PULSE 62; RESP 18; TEMP 98.8; O2SAT 100
[2017-01-15] MEDS: ASPIRIN EC 81 MG TABEC PO SCH (21:21)
[2017-01-15] MEDS: AMITRIPTYLINE HCL 25 MG TAB PO SCH (21:21)
[2017-01-15] MEDS: PRAVASTATIN SOD 40 MG TAB PO SCH (21:21)
[2017-01-16 06:00] VITALS: BP 135/62; PULSE 60; RESP 17; TEMP 96.9
[2017-01-16] MEDS: LEVOTHYROXINE SODIUM 150 MCG TAB PO SCH (06:11)
[2017-01-16] MEDS: aMILoride/HCTZ 5 MG/50 MG TAB PO SCH (08:16)
[2017-01-16] MEDS: PROPRANOLOL HCL 20 MG TAB PO SCH (08:16)
[2017-01-16] MEDS: PANTOPRAZOLE SOD 20 MG DELAYED RELEASE TAB PO SCH (08:16)
[2017-01-16] MEDS: CITALOPRAM HYDROBROMIDE 20 MG TAB PO SCH (08:16)
[2017-01-16] MEDS: CALCIUM CARBONATE 1.25 GM (CA 500 MG) TAB PO SCH (08:16)
[2017-01-16] MEDS: HALOPERIDOL 2 MG TAB PO SCH ×3 (08:16→17:12)
[2017-01-16] MEDS: ESTRADIOL 1 MG TAB PO SCH (08:16)
[2017-01-16] MEDS: POLYETHYLENE GLYCOL 17 GM PKG PO SCH (08:16)
[2017-01-16] MEDS: MULTIVITAMINS/MINERALS THERAPEUTIC TAB PO SCH (09:00)
--- NOTE | 2017-01-16 14:45 | HHI.PYPN ---
Subjective Remarks Patient seen in day room with nurse Ori. Chart reviewed patient compliant medication. Patient calm pleasant with me continues to verify her sons alive and she is happy for that. Now stating that she is willing to go back to [facility] it appears she no longer believes that is been blown up. We will have counsellor call Bishop sow and have staff come to assess her Review of Systems Except as stated in HPI: all other systems reviewed are Neg Objective Alert: Yes [place]: Person, Place, Date Mood: Calm Affect: Euthymic Memory Intact: Comment (fair) Hallucinations: Auditory (denies) Delusions: Yes Delusion Type: Paranoid (not elicited today) Suicidal: Ideation (denies) Homicidal: Ideation (denies) Insight/Judgment Poor Vitals/IOs Vital Signs Date Time Temp Pulse Resp B/P Pulse Ox O2 Delivery O2 Flow Rate FiO2 01/16/17 06:00 96.9 60 17 135/62 01/15/17 19:00 100 Intake and Output 01/15/17 01/15/17 01/16/17 08:00 16:00 00:00 Intake Total 960 ml Balance 960 ml Assessment & Plan Problem List: (1) 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 Will have staff from [facility] come to assess patient Justification for Cont. Inpt. At this time patient will decompensate the placed in the lower level of care Discharge Planning To be determined Request HC Surrog/Guard Advoc?: Yes Son Muniz MD Jan 16, 2017 14:45
[2017-01-16 19:42] VITALS: BP 132/77; PULSE 69; RESP 17; TEMP 97.6
[2017-01-16] MEDS: AMITRIPTYLINE HCL 25 MG TAB PO SCH (20:40)
[2017-01-16] MEDS: ASPIRIN EC 81 MG TABEC PO SCH (20:40)
[2017-01-16] MEDS: PRAVASTATIN SOD 40 MG TAB PO SCH (20:40)
[2017-01-17 05:53] VITALS: BP 128/58; PULSE 64; RESP 18; TEMP 97.4
[2017-01-17] MEDS: LEVOTHYROXINE SODIUM 150 MCG TAB PO SCH (06:23)
[2017-01-17] MEDS: CITALOPRAM HYDROBROMIDE 20 MG TAB PO SCH (09:22)
[2017-01-17] MEDS: aMILoride/HCTZ 5 MG/50 MG TAB PO SCH (09:22)
[2017-01-17] MEDS: PROPRANOLOL HCL 20 MG TAB PO SCH (09:22)
[2017-01-17] MEDS: CALCIUM CARBONATE 1.25 GM (CA 500 MG) TAB PO SCH (09:22)
[2017-01-17] MEDS: ESTRADIOL 1 MG TAB PO SCH (09:22)
[2017-01-17] MEDS: MULTIVITAMINS/MINERALS THERAPEUTIC TAB PO SCH (09:22)
[2017-01-17] MEDS: POLYETHYLENE GLYCOL 17 GM PKG PO SCH (09:23)
[2017-01-17] MEDS: HALOPERIDOL 2 MG TAB PO SCH ×3 (09:23→17:14)
[2017-01-17] MEDS: PANTOPRAZOLE SOD 20 MG DELAYED RELEASE TAB PO SCH (09:23)
--- NOTE | 2017-01-17 15:59 | HHI.PYPN ---
Subjective Remarks Patient seen in her room with nurse Elyse and counselor Molly. Patient now alert oriented calm cooperative showing some insight into her past behaviors realizing the psychotic episode when she experienced. She is willing to return to [facility] in a more controlled environment such as there [facility]. She denies suicidality homicidality voices or visions for now continue treatment Review of Systems Except as stated in HPI: all other systems reviewed are Neg Objective Alert: Yes [place]: Person, Place, Date Mood: Calm Affect: Euthymic Memory Intact: Comment (fair) Hallucinations: Auditory (denies) Delusions: Yes Delusion Type: Paranoid (not elicited today) Suicidal: Ideation (denies) Homicidal: Ideation (denies) Insight/Judgment Poor to fair Vitals/IOs Vital Signs Date Time Temp Pulse Resp B/P Pulse Ox O2 Delivery O2 Flow Rate FiO2 01/17/17 05:53 97.4 64 18 128/58 01/15/17 19:00 100 Intake and Output 01/16/17 01/16/17 01/17/17 08:00 16:00 00:00 Intake Total 240 ml Balance 240 ml Assessment & Plan Problem List: (1) 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 She is compliant medication. For now continue treatment Justification for Cont. Inpt. At this time patient will decompensate patient placed in a lower level of care Discharge Planning To be determined Request HC Surrog/Guard Advoc?: Yes Son Muniz MD Jan 17, 2017 15:59
[2017-01-17 18:00] VITALS: BP 123/61; PULSE 58; RESP 16; TEMP 96.8; O2SAT 97
[2017-01-17] MEDS: AMITRIPTYLINE HCL 25 MG TAB PO SCH (22:00)
[2017-01-17] MEDS: ACETAMINOPHEN 325 MG TAB PO PRN (22:00)
[2017-01-17] MEDS: PRAVASTATIN SOD 40 MG TAB PO SCH (22:00)
[2017-01-17] MEDS: ASPIRIN EC 81 MG TABEC PO SCH (22:00)
[2017-01-18 05:11] VITALS: BP 120/65; PULSE 55; RESP 18; TEMP 96.2
[2017-01-18] MEDS: LEVOTHYROXINE SODIUM 150 MCG TAB PO SCH (06:26)
[2017-01-18] MEDS: PROPRANOLOL HCL 20 MG TAB PO SCH (09:00)
[2017-01-18] MEDS: PANTOPRAZOLE SOD 20 MG DELAYED RELEASE TAB PO SCH (09:06)
[2017-01-18] MEDS: CALCIUM CARBONATE 1.25 GM (CA 500 MG) TAB PO SCH (09:06)
[2017-01-18] MEDS: HALOPERIDOL 2 MG TAB PO SCH ×3 (09:06→18:30)
[2017-01-18] MEDS: ESTRADIOL 1 MG TAB PO SCH (09:06)
[2017-01-18] MEDS: MULTIVITAMINS/MINERALS THERAPEUTIC TAB PO SCH (09:06)
[2017-01-18] MEDS: CITALOPRAM HYDROBROMIDE 20 MG TAB PO SCH (09:07)
[2017-01-18] MEDS: aMILoride/HCTZ 5 MG/50 MG TAB PO SCH (09:07)
[2017-01-18] MEDS: POLYETHYLENE GLYCOL 17 GM PKG PO SCH (09:07)
--- NOTE | 2017-01-18 10:51 | HHI.PYPN ---
Subjective Remarks Patient seen in her room with nurse Iveth medical student Darrin. Chart reviewed. Patient compliant medication. Patient calm cooperative continues to deny any of the delusional content that she showed on admission. Continue to wait on placement issues. For now continue treatment Review of Systems Except as stated in HPI: all other systems reviewed are Neg Objective Alert: Yes [place]: Person, Place, Date Mood: Calm Affect: Euthymic Memory Intact: Comment (fair) Hallucinations: Auditory (denies) Delusions: Yes Delusion Type: Paranoid (not elicited today) Suicidal: Ideation (denies) Homicidal: Ideation (denies) Insight/Judgment Poor Vitals/IOs Vital Signs Date Time Temp Pulse Resp B/P Pulse Ox O2 Delivery O2 Flow Rate FiO2 01/18/17 05:11 96.2 55 18 120/65 01/17/17 18:00 97 Intake and Output 01/17/17 01/17/17 01/18/17 08:00 16:00 00:00 Intake Total 480 ml 480 ml Balance 480 ml 480 ml Assessment & Plan Problem List: (1) 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 Continue to work the placement issues Justification for Cont. Inpt. At this time patient will decompensate if placed in the lower level of care Discharge Planning To be determined Request HC Surrog/Guard Advoc?: Yes Son Muniz MD Jan 18, 2017 10:51
--- NOTE | 2017-01-18 16:07 | HHI.PR ---
Subjective Remarks Patient is lying comfortably on bed without any apparent distress Offering no complaint As per patient she is not hearing voices any more Walking with a walker Review of system for 10 point system otherwise unremarkable Objective Objective Results - Vital Signs Date Time Temp Pulse Resp B/P Pulse Ox O2 Delivery O2 Flow Rate FiO2 01/18/17 05:11 96.2 55 18 120/65 01/17/17 18:00 96.8 58 16 123/61 97 I/O 01/17/17 01/17/17 01/17/17 01/18/17 01/18/17 01/18/17 07:00 15:00 23:00 07:00 15:00 23:00 Intake Total 480 ml 480 ml 720 ml Balance 480 ml 480 ml 720 ml Intake Oral 480 ml 480 ml Oral Supplement 360 ml Tube Feeding 360 ml # Voids 4 3 2 2 Physical Exam Physical Exam GENERAL: This is a well-nourished, well-developed patient, in no apparent distress. SKIN: Cool and dry. HEAD: Atraumatic. Normocephalic. No temporal or scalp tenderness. EYES: Extraocular motions intact. No scleral icterus. No injection or drainage. ENT: Nose without bleeding, purulent drainage or septal hematoma. Airway patent. NECK: Trachea midline. Dated Supple, nontender, no meningeal signs. CARDIOVASCULAR: Regular rate and rhythm without murmurs, gallops, or rubs. RESPIRATORY: Clear to auscultation. Breath sounds equal bilaterally. No wheezes , rales, or rhonchi. GASTROINTESTINAL: Abdomen soft, non-tender, nondistended. No hepato-splenomegaly , or palpable masses. No guarding. MUSCULOSKELETAL: Extremities without clubbing, cyanosis. Trace ankle edema, pedal pulses 2+ bilaterally. No joint tenderness, effusion, or edema noted. No calf tenderness. Negative Homans sign bilaterally. NEUROLOGICAL: Awake, alert oriented 3. No focal deficits. Urinary Catheter: No Vascular Central Line Catheter: No A/P Assessment and Plan (1) Auditory hallucination (2) Hyperlipidemia (3) Tremor (4) HTN (hypertension) (5) Hypothyroid (6) Psychotic disorder (7) Hx TIA/stroke w/o resid Plan 81-year-old elderly female with history hypertension, hyperlipidemia TIA. Brought into emergency room under Noel act for auditory hallucinations. Patient now admitted to psychiatric unit. Auditory hallucinations, psychosis. As the patient resolved -Continue with psychiatric care as per psychiatrist -Patient also been followed by neurology, for possible memory deficit and auditory hallucinations. Brain MRI has been done which does not show acute findings. Had episode of chest pain, ruled out for acute coronary syndrome. Patient remains chest pain-free Continue with aspirin 81 mg by mouth daily History of TIA Continue with aspirin Hypothyroid -Continue with home medication Tremors Continue Inderal Hyperlipidemia Continue statins Hypertension, stable continue home medications Leg edema -TEDS UTI + ecoli -Treated with Levaquin completed course -no urinary symptoms, no fever call if any questions/medical issues arise Discussed with patient Anila Pacheco MD Jan 18, 2017 16:07
[2017-01-18 18:00] VITALS: BP 137/61; PULSE 68; RESP 18; TEMP 98.1; O2SAT 100
[2017-01-18] MEDS: PRAVASTATIN SOD 40 MG TAB PO SCH (20:53)
[2017-01-18] MEDS: ASPIRIN EC 81 MG TABEC PO SCH (20:53)
[2017-01-18] MEDS: AMITRIPTYLINE HCL 25 MG TAB PO SCH (20:53)
[2017-01-19] MEDS: LEVOTHYROXINE SODIUM 150 MCG TAB PO SCH (05:59)
[2017-01-19 06:17] VITALS: BP 132/68; PULSE 80; RESP 17; TEMP 98; O2SAT 94
--- NOTE | 2017-01-19 08:22 | HHI.PYPN ---
Subjective Remarks Patient seen in dayroom with nurse Lazaro and medical student Darrin, chart review, counselors note related to possible placement noted and appreciated. Patient continues calm cooperative and pleasant no longer voicing the delusional ideation. Patient compliant medications. For now continue treatment no change Review of Systems Except as stated in HPI: all other systems reviewed are Neg Objective Alert: Yes [place]: Person, Place, Date Mood: Calm Affect: Euthymic Memory Intact: Comment (fair) Hallucinations: Auditory (denies) Delusions: Yes Delusion Type: Paranoid (not elicited today) Suicidal: Ideation (denies) Homicidal: Ideation (denies) Insight/Judgment Poor Vitals/IOs Vital Signs Date Time Temp Pulse Resp B/P Pulse Ox O2 Delivery O2 Flow Rate FiO2 01/19/17 06:17 98.0 80 17 132/68 94 Intake and Output 01/18/17 01/18/17 01/19/17 08:00 16:00 00:00 Intake Total 720 ml 362 ml Balance 720 ml 362 ml Assessment & Plan Problem List: (1) 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 She is calm cooperative and pleasant. Continue to work on placement issues Justification for Cont. Inpt. At this time patient decompensate if placed in a lower level of care Discharge Planning To be determined Request HC Surrog/Guard Advoc?: Yes Son Muniz MD Jan 19, 2017 08:22
[2017-01-19] MEDS: aMILoride/HCTZ 5 MG/50 MG TAB PO SCH (09:22)
[2017-01-19] MEDS: CITALOPRAM HYDROBROMIDE 20 MG TAB PO SCH (09:22)
[2017-01-19] MEDS: ESTRADIOL 1 MG TAB PO SCH (09:22)
[2017-01-19] MEDS: PROPRANOLOL HCL 20 MG TAB PO SCH (09:23)
[2017-01-19] MEDS: HALOPERIDOL 2 MG TAB PO SCH ×3 (09:23→18:38)
[2017-01-19] MEDS: MULTIVITAMINS/MINERALS THERAPEUTIC TAB PO SCH (09:23)
[2017-01-19] MEDS: POLYETHYLENE GLYCOL 17 GM PKG PO SCH (09:23)
[2017-01-19] MEDS: PANTOPRAZOLE SOD 20 MG DELAYED RELEASE TAB PO SCH (09:23)
[2017-01-19] MEDS: CALCIUM CARBONATE 1.25 GM (CA 500 MG) TAB PO SCH (09:23)
[2017-01-19 18:27] VITALS: BP 127/60; PULSE 60; RESP 16; TEMP 97.1; O2SAT 93
[2017-01-19] MEDS: ASPIRIN EC 81 MG TABEC PO SCH (22:04)
[2017-01-19] MEDS: AMITRIPTYLINE HCL 25 MG TAB PO SCH (22:04)
[2017-01-19] MEDS: PRAVASTATIN SOD 40 MG TAB PO SCH (22:04)
[2017-01-20 06:00] VITALS: BP_SYST 127; BP_SYST 137; BP_DIAS 60; BP_DIAS 65; PULSE 60; PULSE 64; RESP 15; RESP 16; TEMP 97.1; TEMP 97.7; O2SAT 93; O2SAT 95
[2017-01-20] MEDS: LEVOTHYROXINE SODIUM 150 MCG TAB PO SCH (06:00)
[2017-01-20] MEDS: HALOPERIDOL 2 MG TAB PO SCH ×3 (10:24→18:35)
[2017-01-20] MEDS: MULTIVITAMINS/MINERALS THERAPEUTIC TAB PO SCH (10:24)
[2017-01-20] MEDS: ESTRADIOL 1 MG TAB PO SCH (10:24)
[2017-01-20] MEDS: CALCIUM CARBONATE 1.25 GM (CA 500 MG) TAB PO SCH (10:25)
[2017-01-20] MEDS: CITALOPRAM HYDROBROMIDE 20 MG TAB PO SCH (10:25)
[2017-01-20] MEDS: aMILoride/HCTZ 5 MG/50 MG TAB PO SCH (10:25)
[2017-01-20] MEDS: POLYETHYLENE GLYCOL 17 GM PKG PO SCH (10:26)
[2017-01-20] MEDS: PANTOPRAZOLE SOD 20 MG DELAYED RELEASE TAB PO SCH (10:26)
[2017-01-20] MEDS: PROPRANOLOL HCL 20 MG TAB PO SCH (10:36)
--- NOTE | 2017-01-20 12:37 | HHI.PYPN ---
Subjective Remarks Pt seen and discussed with staff. She continues to report that her son is dying which is a delusion. She remains isolative to her room but today did come out voluntarily to dayroom for a little bit. She compliant with meds. No SI/HI Objective Alert: Yes [place]: Person, Place, Date Mood: Depressed Affect: Restricted Memory Intact: Immediate, Recent, Comment (fair) Hallucinations: Auditory (denies) Delusions: Yes Delusion Type: Paranoid (mild) Suicidal: Ideation (denies) Homicidal: Ideation (denies) Insight/Judgment poor Vitals/IOs Vital Signs Date Time Temp Pulse Resp B/P Pulse Ox O2 Delivery O2 Flow Rate FiO2 01/20/17 06:00 97.7 64 15 137/65 95 Intake and Output 01/19/17 01/19/17 01/20/17 08:00 16:00 00:00 Intake Total 480 ml 2760 ml Balance 480 ml 2760 ml Assessment & Plan Problem List: (1) Other psychotic disorder not due to a substance or known physiological condition ICD Code: F28 Assessment & Plan Continue current tx plan. Estimated LOS: days Justification for Cont. Inpt. risk of decompensation Request HC Surrog/Guard Advoc?: Yes Marcelina Krishnan MD Jan 20, 2017 12:37
[2017-01-20 18:00] VITALS: BP 125/60; PULSE 63; TEMP 97.8; O2SAT 97
[2017-01-20] MEDS: PRAVASTATIN SOD 40 MG TAB PO SCH (21:21)
[2017-01-20] MEDS: ASPIRIN EC 81 MG TABEC PO SCH (21:21)
[2017-01-20] MEDS: AMITRIPTYLINE HCL 25 MG TAB PO SCH (21:21)
[2017-01-21 05:39] VITALS: BP 118/73; PULSE 56; RESP 18; TEMP 97.6
[2017-01-21] MEDS: LEVOTHYROXINE SODIUM 150 MCG TAB PO SCH (06:20)
[2017-01-21] MEDS: CALCIUM CARBONATE 1.25 GM (CA 500 MG) TAB PO SCH (09:00)
[2017-01-21] MEDS: HALOPERIDOL 2 MG TAB PO SCH ×3 (09:44→18:07)
[2017-01-21] MEDS: MULTIVITAMINS/MINERALS THERAPEUTIC TAB PO SCH (09:44)
[2017-01-21] MEDS: POLYETHYLENE GLYCOL 17 GM PKG PO SCH (09:44)
[2017-01-21] MEDS: aMILoride/HCTZ 5 MG/50 MG TAB PO SCH (09:44)
[2017-01-21] MEDS: CITALOPRAM HYDROBROMIDE 20 MG TAB PO SCH (09:44)
[2017-01-21] MEDS: ESTRADIOL 1 MG TAB PO SCH (09:44)
[2017-01-21] MEDS: PANTOPRAZOLE SOD 20 MG DELAYED RELEASE TAB PO SCH (09:45)
[2017-01-21] MEDS: PROPRANOLOL HCL 20 MG TAB PO SCH (09:48)
--- NOTE | 2017-01-21 11:22 | HHI.PYPN ---
Subjective Remarks Pt seen and discussed with staff. She is still delusional about son being on brink of . Visited with her niece and nephew yesterday which went well. No aggression or agitation. Medication compliant. 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 Continue current tx plan. Estimated LOS: days Justification for Cont. Inpt. risk of decompensation Request HC Surrog/Guard Advoc?: Yes Marcelina Krishnan MD Jan 21, 2017 11:21
[2017-01-21] MEDS ORDERED: SOD PHOSPHATE/SOD BIPHOSPHATE (ADULT) ENEMA 133ML RECTAL ONE (16:00)
[2017-01-21] MEDS: ASPIRIN EC 81 MG TABEC PO SCH (21:37)
[2017-01-21] MEDS: AMITRIPTYLINE HCL 25 MG TAB PO SCH (21:37)
[2017-01-21] MEDS: PRAVASTATIN SOD 40 MG TAB PO SCH (21:37)
[2017-01-22 05:26] VITALS: BP 125/60; PULSE 56; RESP 16; TEMP 98.3; O2SAT 96
[2017-01-22] MEDS: LEVOTHYROXINE SODIUM 150 MCG TAB PO SCH (05:48)
[2017-01-22] MEDS: PANTOPRAZOLE SOD 20 MG DELAYED RELEASE TAB PO SCH (09:00)
[2017-01-22] MEDS: aMILoride/HCTZ 5 MG/50 MG TAB PO SCH (09:00)
[2017-01-22] MEDS: POLYETHYLENE GLYCOL 17 GM PKG PO SCH (09:00)
[2017-01-22] MEDS: CITALOPRAM HYDROBROMIDE 20 MG TAB PO SCH (09:00)
[2017-01-22] MEDS: MULTIVITAMINS/MINERALS THERAPEUTIC TAB PO SCH (09:00)
[2017-01-22] MEDS: ESTRADIOL 1 MG TAB PO SCH (09:00)
[2017-01-22] MEDS: PROPRANOLOL HCL 20 MG TAB PO SCH (09:00)
[2017-01-22] MEDS: CALCIUM CARBONATE 1.25 GM (CA 500 MG) TAB PO SCH (09:00)
[2017-01-22] MEDS: HALOPERIDOL 2 MG TAB PO SCH ×3 (09:00→17:25)
--- NOTE | 2017-01-22 11:24 | HHI.PYPN ---
Subjective Remarks Patient discussed with treatment team, patient seen on unit. Chart reviewed. Patient remains calm pleasant her delusions have essentially resolved. It appears the family is attempting to arrange for placement in a small long-term near [facility] to be closer to her sister. For now continue treatment no change Review of Systems Except as stated in HPI: all other systems reviewed are Neg Objective Alert: Yes [place]: Person, Place, Date Mood: Depressed Affect: Restricted Memory Intact: Comment (fair) Hallucinations: Other (none) Delusions: No Delusion Type: Paranoid (essentially resolved) Suicidal: Ideation (denies) Homicidal: Ideation (denies) Insight/Judgment Poor Vitals/IOs Vital Signs Date Time Temp Pulse Resp B/P Pulse Ox O2 Delivery O2 Flow Rate FiO2 01/22/17 05:26 98.3 56 16 125/60 96 Intake and Output 01/21/17 01/21/17 01/22/17 08:00 16:00 00:00 Intake Total 720 ml 120 ml Balance 720 ml 120 ml Assessment & Plan Problem List: (1) 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 Compliant medications. Continue to work on placement issues Justification for Cont. Inpt. This time patient decompensated place to a lower level of care Discharge Planning To be determined Request HC Surrog/Guard Advoc?: Yes Son Muniz MD Jan 22, 2017 11:24
--- NOTE | 2017-01-22 11:47 | PD.TTN ---
Present for Treatment Team Treatment Team Staff: Provider (Dr. Muniz), Psych Therapist (Molly Rushing), Occupational Therapist (Tony) Patient Problems 1. Discharge planning 2. Medication compliance 3. Knowledge deficit 4. Lack of coping skills Progress Toward Goals Provider Input: Dr. Muniz confirmed that we will have a family meeting today at 2:30 p.m. to discuss discharge plan. Psych Therapist Input: Counselor reported the patient's family has found a placement on the [facility] where the patient will be closer to her sister and living in a penitentiary type setting and patient's daughter will be living in a penitentiary across the street. Occupational Therapist Input: Patient is not participating in therapeutic groups or activities. Documentation Scribe: JOSE LUIS Jacome Date Resolved: Jan 22, 2017 Molly Rushing Jan 22, 2017 11:47
[2017-01-22 18:00] VITALS: BP 103/49; PULSE 57; RESP 18; TEMP 98.4; O2SAT 96
[2017-01-22] MEDS: PRAVASTATIN SOD 40 MG TAB PO SCH (21:55)
[2017-01-22] MEDS: ASPIRIN EC 81 MG TABEC PO SCH (21:55)
[2017-01-22] MEDS: AMITRIPTYLINE HCL 25 MG TAB PO SCH (21:55)
[2017-01-22] MEDS: diphenhydrAMINE HCL 50 MG CAP PO PRN (22:00)
[2017-01-23 06:00] VITALS: BP 148/67; PULSE 60; RESP 16; O2SAT 97
[2017-01-23] MEDS: LEVOTHYROXINE SODIUM 150 MCG TAB PO SCH (06:13)
[2017-01-23] MEDS ORDERED: HALO2TAB PO (08:09)
[2017-01-23] MEDS ORDERED: LEVO.15 PO (08:09)
[2017-01-23] MEDS ORDERED: POLY17S PO (08:09)
[2017-01-23] MEDS ORDERED: AMIT25TA9 PO (08:09)
[2017-01-23] MEDS ORDERED: CELE20TA PO (08:09)
[2017-01-23] MEDS ORDERED: CALC500T30 PO (08:09)
[2017-01-23] MEDS ORDERED: PRAV40TA PO (08:09)
[2017-01-23] MEDS ORDERED: THERM PO (08:09)
[2017-01-23] MEDS ORDERED: ESTR1 PO (08:09)
[2017-01-23] MEDS ORDERED: PANT20 PO (08:09)
[2017-01-23] MEDS ORDERED: ASPI-99 PO (08:09)
[2017-01-23] MEDS ORDERED: PROP20TA3 PO (08:09)
[2017-01-23] MEDS ORDERED: MODU550 PO (08:09)
[2017-01-23] MEDS: POLYETHYLENE GLYCOL 17 GM PKG PO SCH (08:51)
[2017-01-23] MEDS: PROPRANOLOL HCL 20 MG TAB PO SCH (08:52)
[2017-01-23] MEDS: HALOPERIDOL 2 MG TAB PO SCH (08:52)
[2017-01-23] MEDS: CITALOPRAM HYDROBROMIDE 20 MG TAB PO SCH (08:53)
[2017-01-23] MEDS: PANTOPRAZOLE SOD 20 MG DELAYED RELEASE TAB PO SCH (08:53)
[2017-01-23] MEDS: aMILoride/HCTZ 5 MG/50 MG TAB PO SCH (08:53)
[2017-01-23] MEDS: CALCIUM CARBONATE 1.25 GM (CA 500 MG) TAB PO SCH (08:53)
[2017-01-23] MEDS: MULTIVITAMINS/MINERALS THERAPEUTIC TAB PO SCH (08:53)
[2017-01-23] MEDS: ESTRADIOL 1 MG TAB PO SCH (08:54)
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
== END 2017-01-23 12:10 | DRG 885 ==
LOC: H250 14:18 → H260 12-27 09:47 → H250 01-06 00:08
PROVIDERS: ADMIT Psychiatry & Neurology Psychiatry; ATTEND Psychiatry & Neurology Psychiatry
DX: F28 Other psychotic disorder not due to a substance or known physiological condition (principal); N39.0 Urinary tract infection, site not specified; F32.3 Major depressive disorder, single episode, severe with psychotic features; K21.9 Gastro-esophageal reflux disease without esophagitis; I10 Essential (primary) hypertension; E78.5 Hyperlipidemia, unspecified; B96.20 Unspecified Escherichia coli [E. coli] as the cause of diseases classified elsewhere; E87.6 Hypokalemia; R25.1 Tremor, unspecified; E03.9 Hypothyroidism, unspecified; H40.9 Unspecified glaucoma; R07.89 Other chest pain; F41.9 Anxiety disorder, unspecified; Z91.14 Patient's other noncompliance with medication regimen; Z79.82 Long term (current) use of aspirin; Z86.73 Personal history of transient ischemic attack (TIA), and cerebral infarction without residual deficits; Z87.891 Personal history of nicotine dependence; Z88.1 Allergy status to other antibiotic agents; Z88.0 Allergy status to penicillin; Z88.8 Allergy status to other drugs, medicaments and biological substances; Z82.49 Family history of ischemic heart disease and other diseases of the circulatory system; Z88.2 Allergy status to sulfonamides
CPT/HCPCS: 70553; 80048; 80053; 80061; 81001; 82607; 83036; 84132; 84443; 85025; 87077; 87086; 87186; A9579; J2060; Q0163